=== PATIENT | male | born 1950 | race Caucasian/White ===

== ENCOUNTER 2020-05-21 08:04 | Outpatient (REF) | payer MEDICARE, SELFPAY ==
--- NOTE | 2020-05-21 08:09 | CT_ITS ---
EXAMINATION: CT CHEST WITHOUT CONTRAST CLINICAL INFORMATION: Right middle lobe lung cancer COMPARISON: Previous chest CT scans most recent March 2019 TECHNIQUE: Multidetector volumetric CT imaging of the chest was done. Axial MIP volume rendering provided. Sagittal and coronal reformatted images were obtained. This CT examination was performed using dose optimization techniques as appropriate, variously including the following: *Automated exposure control *Adjustment of mA and/or kV according to patient size (this includes techniques or standardized protocols for targeted exams where dose is matched to indication/reason for exam; i.e. extremities or head) *Use of iterative reconstruction technique DLP: 176 mGy-cm FINDINGS: LUNGS: There is evidence of emphysema. There are stable postsurgical changes following right middle lobe lobectomy. There are calcified and noncalcified pulmonary nodules that are stable. Largest pulmonary nodule is a peripheral or subpleural 9 mm, partially calcified left upper lobe nodule axial image 265 series 7. There is mild focal bronchiectasis seen in the right lower lobe axial image 373 series 7 that is stable from recent exams. There are increased peripheral interstitial markings in the anterior right upper lobe that are unchanged. No endobronchial or endotracheal lesion is seen. MEDIASTINUM: The visualized thyroid gland is unremarkable. There are small mediastinal lymph nodes that are stable. No enlarged lymph nodes are seen. There are postsurgical changes seen in the right pulmonary hilum. The heart does not appear enlarged. There is moderate coronary artery calcification. There is no pericardial effusion. The thoracic aorta is upper normal in size. PLEURA: There is no pleural effusion. No pleural mass or thickening. AXILLA: No lymphadenopathy. UPPER ABDOMEN: The right kidney is not visualized and may been removed. There is fatty infiltration of the pancreas. OSSEOUS STRUCTURES: There are degenerative changes of the spine. There are old left-sided rib fractures. CT/CT chest wo con IMPRESSION: Emphysema. Stable postsurgical changes following right middle lobe lobectomy. Stable pulmonary nodules. Moderate coronary artery calcification.
== END 2020-05-21 08:05 | disposition home or self-care (01) ==
LOC: HO.CT 08:04
PROVIDERS: PCP Student in an Organized Health Care Education/Training Program; Visit Provider Surgery
DX: C34.2 Malignant neoplasm of middle lobe, bronchus or lung (principal)
CPT/HCPCS: 71250

== ENCOUNTER → 2020-06-06 10:05 | Outpatient (BNVA) | payer MEDICARE, SELFPAY | PROVIDERS: PCP Student in an Organized Health Care Education/Training Program; Visit Provider Surgery | DX: Z85.118 Personal history of other malignant neoplasm of bronchus and lung (principal); Z87.891 Personal history of nicotine dependence; Z90.2 Acquired absence of lung [part of] | CPT/HCPCS: 99214 ==

== ENCOUNTER 2020-06-11 14:02 | Emergency (ER) | payer MEDICARE, SELFPAY ==
[2020-06-11 14:08] VITALS: BP 157/76; BP 159/83; PULSE 61; PULSE 67; RESP 16; TEMP 36.5; O2SAT 97; BMI 29.0
--- NOTE | 2020-06-11 14:14 | CT_ITS ---
EXAMINATION: CT HEAD WITHOUT CONTRAST CLINICAL INFORMATION: Status post fall, rule out intracranial abnormality. COMPARISON: None TECHNIQUE: Contiguous axial imaging was performed from the skull base to vertex without intravenous administration of contrast. Coronal and sagittal reformatted images were obtained. This CT examination was performed using dose optimization techniques as appropriate, variously including the following: *Automated exposure control *Adjustment of mA and/or kV according to patient size (this includes techniques or standardized protocols for targeted exams where dose is matched to indication/reason for exam; i.e. extremities or head) *Use of iterative reconstruction technique DLP: 776 mGy-cm FINDINGS: There is mild widening of the cortical sulci and associated ventriculomegaly. The lateral ventricles are symmetrical. The third and fourth ventricles are in their normal midline position. The basilar and prepontine cisterns are unremarkable. There is no acute intra or extracerebral abnormality. There is no mass effect or midline shift. Sections through the bony calvarium are unremarkable. The orbits are intact. The paranasal sinuses are clear. The mastoid air cells are clear. A probable subcutaneous hematoma is seen along the right high parietal region. CT/CT head/brain wo con IMPRESSION: 1. No acute intracranial pathology. 2. Probable subcutaneous hematoma along the right high parietal region is presumed secondary to the patient's trauma. No acute underlying abnormality. Correlate with physical exam.
--- NOTE | 2020-06-11 14:17 | ED.FALL ---
HPI - Fall General Chief Complaint: Fall Stated Complaint: FALL 15 FEET OFF LADDER,LAC TO HEAD Time Seen by Provider: 06/11/20 14:14 History of Present Illness HPI Narrative: Patient complains of laceration to the head after a fall 10 ft from a ladder he fell down and then the ladder fell and hit him in the head, he denies any headache any confusion any nausea vomiting any dizziness he said there was no loss of consciousness and he remembers everything, at this time he does not complain of any pain or dizziness, no vision pain no shortness of breath no chest pain no abdominal pain no extremity pain Related Data Home Medications Medication Instructions Recorded Confirmed albuterol sulfate 90 mcg/actuation 2 puff INHALATION Q6H PRN 04/26/20 06/06/20 aerosol inhaler amlodipine 2.5 mg tablet 2.5 mg PO DAILY 04/26/20 06/06/20 atenolol 50 mg tablet 50 mg PO DAILY 04/26/20 06/06/20 colchicine 0.6 mg capsule 0.6 mg PO DAILY 04/26/20 06/06/20 ibuprofen 800 mg tablet 800 mg PO TID 04/26/20 06/06/20 losartan 25 mg tablet 25 mg PO DAILY 04/26/20 06/06/20 nortriptyline 10 mg capsule 10 mg PO BEDTIME 04/26/20 06/06/20 Allergies Allergy/AdvReac Type Severity Reaction Status Date / Time No Known Allergies Allergy Verified 04/26/20 08:55 [No Known Allergies*] Review of Systems Review of Systems: ROS is positive for laceration to the scalp There is no headache no nausea no vomiting no dizziness no confusion no retrograde amnesia the patient has no neck pain no numbness no tingling no paresthesias no chest pain no abdominal pain no pain to either legs or arms Yes all other systems are reviewed and are negative ON LICENSE OF [facility] Past Medical History Attestation statement: The following information was validated with the patient. ON LICENSE OF [facility] Narrative: No alcohol or drug use, he has hypertension, he does not smoke cigarettes Source: nursing notes reviewed Surgical History History of nephrectomy, right Status post lobectomy of lung Family History Family History Father CVD (cardiovascular disease) Diabetes HTN (hypertension) Mother Lung cancer Social History Social History Alcohol intake: current Alcohol intake frequency: a few times a week Smoking Status: Current some day smoker Use of substances other than those prescribed or required for medical reasons: No Advance Directives: Yes Advance Directives Information Provided: Yes Advance Directives on File: No Physical Exam Vital Signs: Vital Signs: Last Vital Signs Temp 97.7 F 06/11/20 14:08 Pulse 61 06/11/20 14:08 Resp 16 06/11/20 14:08 BP 157/76 H 06/11/20 14:08 Pulse Ox 97 06/11/20 14:08 Body Mass Index 29.0 Patient is A&O x3 comfortable no acute distress moving all extremities chatting comfortably with staff The head on the scalp there is a 4 cm laceration subcutaneous, there is no defect to the bone there is no raccoon eyes there is no hemotympanum there is no Nguyen sign, there is no tenderness 20 bones of the face Neck is supple with no tenderness at all The chest is clear to auscultation bilaterally with no rib tenderness no pain on deep breathing The abdomen is soft nontender Extremities is full range of motion x4 without tenderness swelling or deformity and he ambulates easily Neuro there is no focal deficit there is no motor or sensory deficit, cranial nerves 2-12 intact as tested gait is normal and balance is normal as speech Course Course Course Narrative: CT of the head was negative and patient remains asymptomatic comfortable and cooperative throughout visit Procedure note the 4 cm subcutaneous scalp laceration is anesthetized with 8 cc of 1% lidocaine without epi It is copiously irrigated with normal saline It is closed with mesfin, bleeding controlled MDM - Fall Imaging Data CT scan - head: Radiologist's impression: FINDINGS: There is mild widening of the cortical sulci and associated ventriculomegaly. The lateral ventricles are symmetrical. The third and fourth ventricles are in their normal midline position. The basilar and prepontine cisterns are unremarkable. There is no acute intra or extracerebral abnormality. There is no mass effect or midline shift. Sections through the bony calvarium are unremarkable. The orbits are intact. The paranasal sinuses are clear. The mastoid air cells are clear. A probable subcutaneous hematoma is seen along the right high parietal region. CT/CT head/brain wo con IMPRESSION: 1. No acute intracranial pathology. 2. Probable subcutaneous hematoma along the right high parietal region is presumed secondary to the patient's trauma. No acute underlying abnormality. Correlate with physical exam. Discharge Plan Discharge Clinical Impression: Laceration of occipital region of scalp Qualifiers: Encounter type: initial encounter Qualified Code(s): S01.01XA - Laceration without foreign body of scalp, initial encounter Patient Disposition: Home, Self-Care Additional Instructions: CT of her head was normal with no evidence of fracture or bleeding in the brain The laceration on her head was stapled The mesfin should come out in 7-10 days Return any time for worsening headache, dizziness confusion vomiting, any worse condition or any concerns You got a tetanus shot Prescriptions: No Action colchicine 0.6 mg capsule 0.6 mg PO DAILY RF: 0 atenolol 50 mg tablet 50 mg PO DAILY RF: 0 amlodipine 2.5 mg tablet 2.5 mg PO DAILY RF: 0 ibuprofen 800 mg tablet 800 mg PO TID RF: 0 losartan 25 mg tablet 25 mg PO DAILY RF: 0 nortriptyline 10 mg capsule 10 mg PO BEDTIME RF: 0 albuterol sulfate [ProAir HFA] 90 mcg/actuation HFA aerosol inhaler 2 puff inhalation Q6H PRNRF: 0 Interventions: ED Discharge Assessment Last Done: 06/11/20 16:06 Discharge Date/Time: 06/11/20 16:06
[2020-06-11] MEDS: Lidocaine HCl 1 % MPF 5 ML VIAL SUBCUT ×2 (14:43)
== END 2020-06-11 16:06 | disposition home or self-care (01) ==
PROVIDERS: Emergency Provider Emergency Medicine; PCP Student in an Organized Health Care Education/Training Program
DX: S01.01XA Laceration without foreign body of scalp, initial encounter (principal); G44.309 Post-traumatic headache, unspecified, not intractable; I10 Essential (primary) hypertension; W11.XXXA Fall on and from ladder, initial encounter; Y93.9 Activity, unspecified; Y92.9 Unspecified place or not applicable; Y99.9 Unspecified external cause status; Z79.899 Other long term (current) drug therapy; F17.200 Nicotine dependence, unspecified, uncomplicated; Z71.6 Tobacco abuse counseling; Z23 Encounter for immunization
CPT/HCPCS: 70450; 90471; 90715; 99284

== ENCOUNTER 2020-06-23 09:58 | Emergency (ER) | payer MEDICARE, SELFPAY ==
[2020-06-23 10:14] VITALS: BP 145/85; PULSE 57; RESP 14; TEMP 36.2; O2SAT 97; BMI 28.1
--- NOTE | 2020-06-23 10:32 | ED.WOUNDLAC ---
HPI - Wound/Laceration General Chief Complaint: Wound/Laceration Stated Complaint: SUTURE REMOVAL Time Seen by Provider: 06/23/20 10:32 Source: patient Mode of arrival: ambulatory Limitations: no limitations History of Present Illness HPI narrative: Presenting ambulatory requesting staple removal scalp which he had placed here on 06/11/2020 after a accident at his house where he fell and ladder hit him on his head causing laceration. He underwent imaging and scalp laceration repair with 12 mesfin. States he has no complaints he feels well no headache, concussion symptoms or any signs of infection. States he is here as instructed to get the mesfin removed. Onset (ago): day(s) Location: scalp Place: home Patient tetanus UTD: Yes Associated symptoms: none Related Data Home Medications Medication Instructions Recorded Confirmed albuterol sulfate 90 mcg/actuation 2 puff INHALATION Q6H PRN 04/26/20 06/06/20 aerosol inhaler amlodipine 2.5 mg tablet 2.5 mg PO DAILY 04/26/20 06/06/20 atenolol 50 mg tablet 50 mg PO DAILY 04/26/20 06/06/20 colchicine 0.6 mg capsule 0.6 mg PO DAILY 04/26/20 06/06/20 ibuprofen 800 mg tablet 800 mg PO TID 04/26/20 06/06/20 losartan 25 mg tablet 25 mg PO DAILY 04/26/20 06/06/20 nortriptyline 10 mg capsule 10 mg PO BEDTIME 04/26/20 06/06/20 Allergies Allergy/AdvReac Type Severity Reaction Status Date / Time No Known Allergies Allergy Verified 04/26/20 08:55 [No Known Allergies*] Review of Systems Review of Systems: Constitutional: No Weight loss, No Fever, No Chills, No Night Sweats, No Fatigue, No Malaise ENT/Mouth: No Hearing loss, No Ear Pain, No Nasal Congestion, No Sinus Pain, No Hoarseness, No sore throat, No Rhinorrhea, No Swallowing Difficulty Eyes: No Eye Pain, No Swelling, No Redness, No Foreign Body, No Discharge, No Vision Changes Cardiovascular: No Chest Pain, No SOB, No Dyspnea on Exertion, No Orthopnea, No Edema, No Palpitations Respiratory: No Cough, No Sputum, No Wheezing, No Smoke Exposure, No Dyspnea Musculoskeletal: No joint pain, No Myalgias, No Joint Swelling Skin: No Skin Lesions, No rash Neuro: No Weakness, No Numbness, No Paresthesias, No Loss of Consciousness, No Dizziness, No Headache Heme/Lymph: No Bruising, No Bleeding,No Lymphadenopathy Endocrine: No Polyuria, No Polydipsia, No Temperature Intolerance Yes all other systems are reviewed and are negative [facility] Past Medical History Surgical History History of nephrectomy, right Status post lobectomy of lung Family History Family History Father CVD (cardiovascular disease) Diabetes HTN (hypertension) Mother Lung cancer Social History Social History Alcohol intake: current Alcohol intake frequency: a few times a week Smoking Status: Current some day smoker Advance Directives: No Advance Directives Information Provided: No Physical Exam Vital Signs: Vital Signs: Last Vital Signs Temp 97.2 F 06/23/20 10:14 Pulse 57 06/23/20 10:14 Resp 14 06/23/20 10:14 BP 145/85 H 06/23/20 10:14 Pulse Ox 97 06/23/20 10:14 Body Mass Index 28.1 Reviewed Const: General: cooperative and healthy appearing; No acute distress or intoxicated appearing Nutritional Appearance: average body habitus Orientation/consciousness: patient oriented x3 HENMT: Other: Temporal scalp there are 12 mesfin and placed slightly scabbed but no erythema, induration or swelling. No tender palpation. Head: Yes normal to inspection Ears: hearing grossly normal bilaterally Eyes: General: appearance normal, both eyes and all related structures Visual Gr: normal visual gr by confrontation Neck: Neck: Yes normal visual inspection and No tender Thyroid: Thyroid normal Chest: Chest palpation & inspection: normal inspection of the chest Resp: Effort & Inspection: normal respiratory effort Cardio: Jugular venous distension: no JVD : General: Yes no CVA tenderness Back/Spine/Pelvis: Back: no CVA tenderness Skin: General skin exam: no rashes or lesions noted Neuro: General: patient oriented x3 Extrem: General: Yes normal to inspection Procedures Procedure Narrative Procedure Narrative: Site clean with alcohol prep and mesfin removed with ease using staple removal tool. Site appears well healed and tissue connected. There is no open wound. Discharge Plan Discharge Clinical Impression: Encounter for removal of mesfin Patient Disposition: Home, Self-Care Instructions: Staple Care (ED) Additional Instructions: You had 12 mesfin removed from the scalp Site appears to be healing well No sign infection Continue with home care as instructed May shower with soap and water however do not submerge the head under water for at least another 1 week Return if any concerns or worse symptoms Thank you Prescriptions: No Action colchicine 0.6 mg capsule 0.6 mg PO DAILY RF: 0 atenolol 50 mg tablet 50 mg PO DAILY RF: 0 amlodipine 2.5 mg tablet 2.5 mg PO DAILY RF: 0 ibuprofen 800 mg tablet 800 mg PO TID RF: 0 losartan 25 mg tablet 25 mg PO DAILY RF: 0 nortriptyline 10 mg capsule 10 mg PO BEDTIME RF: 0 albuterol sulfate [ProAir HFA] 90 mcg/actuation HFA aerosol inhaler 2 puff inhalation Q6H PRNRF: 0 Referrals: Farida Tam MD [Primary Care Provider] - 1 week (As needed )
== END 2020-06-23 10:40 | disposition home or self-care (01) ==
PROVIDERS: Emergency Provider Internal Medicine; PCP Student in an Organized Health Care Education/Training Program
DX: Z48.02 Encounter for removal of sutures (principal); I10 Essential (primary) hypertension; F17.200 Nicotine dependence, unspecified, uncomplicated; Z71.6 Tobacco abuse counseling; Z79.899 Other long term (current) drug therapy
CPT/HCPCS: 99283

== ENCOUNTER 2020-09-15 10:11 | Outpatient (REF) | payer MEDICARE, SELFPAY ==
--- NOTE | ~2020-09-15 | MR_ITS ---
EXAMINATION: MR LUMBAR SPINE WITHOUT CONTRAST CLINICAL INFORMATION: Right hip pain. Leg pain. COMPARISON: MRI dated 04/24/2018 TECHNIQUE: MRI of the lumbar spine was obtained using routine sequences without contrast. FINDINGS: VERTEBRAL BODIES AND PARASPINAL STRUCTURES: The marrow signal is mildly heterogeneous with regions of fatty change. There are no compression fractures or new subluxations. The paraspinal soft tissues are normal. The right kidney is absent. CONUS MEDULLARIS AND CAUDA EQUINA: Normal, terminating at the level of L1. No lower cord signal abnormality is seen. The cauda equina nerve roots are normal. SPINAL LEVELS: L1-L2: Minimal retrosubluxation. Mild endplate spurring anteriorly. No central canal stenosis or foraminal narrowing. L2-L3: No significant disc pathology, central canal stenosis, or foraminal narrowing. L3-L4: Very mild disc bulge and mild facet arthropathy. No central canal stenosis. Mild foraminal narrowing. L4-L5: Mild posterior disc bulge and facet arthropathy without central canal stenosis. Moderate bilateral foraminal narrowing, worse on the left side, as on prior imaging. Small right lateral recess disc extrusion and underlying annular tear results in mild mass effect upon the right L5 nerve root, new compared to the previous study. L5-S1: Very mild disc bulge and hypertrophic facet arthropathy without central canal stenosis. [id number] foraminal encroachment, more so on the right side. MR/MR lumbar spine wo con IMPRESSION: New small right lateral recess disc extrusion at the L4-L5 level with mild mass effect upon the right L5 nerve root. Stable mild disc bulge and facet arthropathy with moderate foraminal encroachment. [id number] foraminal narrowing at the L5-S1 level, more so on the right side, remains stable.
== END 2020-09-15 10:12 | disposition home or self-care (01) ==
LOC: HO.MRI 10:11
PROVIDERS: Visit Provider Pediatrics
DX: M47.27 Other spondylosis with radiculopathy, lumbosacral region (principal); G57.91 Unspecified mononeuropathy of right lower limb
CPT/HCPCS: 72148

== ENCOUNTER 2020-11-17 10:33 | Outpatient (REF) | payer MEDICARE, SELFPAY ==
[2020-11-17 12:05] LABS: Alanine Aminotransferase 16 U/L (0-40); Albumin Level 3.8 g/dL (3.5-5.0); Alkaline Phosphatase 87 U/L (39-117); Anion Gap 10 (12-20); Aspartate Amino Transferase 16 U/L (5-37); Bilirubin Total 0.7 mg/dL (0.0-1.0); Blood Urea Nitrogen 26 mg/dL (9-16); Calcium 8.8 mg/dL (8.4-10.2); Carbon Dioxide 27 mmol/L (22-29); Chloride 107 mmol/L (96-108); Estimated Glomerular Filt Rate 38; Glucose Fasting 81 mg/dL (60-99); Potassium 4.6 mmol/L (3.3-5.1); Sodium 139 mmol/L (135-145)
== END 2020-11-17 10:34 | disposition home or self-care (01) ==
LOC: HO.HMGCLDS 10:33
PROVIDERS: PCP Student in an Organized Health Care Education/Training Program; Visit Provider Internal Medicine Hypertension Specialist
DX: E87.5 Hyperkalemia (principal)
CPT/HCPCS: 36415; 80053

== ENCOUNTER 2020-12-02 08:52 | Outpatient (REF) | payer MEDICARE, SELFPAY ==
--- NOTE | ~2020-12-02 | XR_ITS ---
EXAMINATION: XR HIP, RIGHT CLINICAL INFORMATION: Pain right hip COMPARISON: None TECHNIQUE: Two views of the right hip. FINDINGS: There is mild loss of joint space with no bony erosive changes or periarticular spurring. No visible acute fracture, dislocation or subluxation seen. Soft tissues are normal. XR/XR hip RT min 2V IMPRESSION: Minimal early degenerative arthritic changes right hip joint.
== END 2020-12-02 08:53 | disposition home or self-care (01) ==
LOC: HO.XRAY 08:52
PROVIDERS: PCP Student in an Organized Health Care Education/Training Program; Visit Provider Internal Medicine Addiction Medicine
DX: M25.551 Pain in right hip (principal)
CPT/HCPCS: 73502

== ENCOUNTER 2021-06-08 09:59 | Outpatient (REF) | payer MEDICARE, SELFPAY ==
--- NOTE | ~2021-06-08 | CT_ITS ---
EXAMINATION: CT CHEST WITHOUT CONTRAST CLINICAL INFORMATION: Right middle lobe neoplasm. COMPARISON: 05/21/2020 and 04/09/2016. TECHNIQUE: Multidetector volumetric CT imaging of the chest was done. Axial MIP volume rendering provided. Sagittal and coronal reformatted images were obtained. This CT examination was performed using dose optimization techniques as appropriate, variously including the following: *Automated exposure control *Adjustment of mA and/or kV according to patient size (this includes techniques or standardized protocols for targeted exams where dose is matched to indication/reason for exam; i.e. extremities or head) *Use of iterative reconstruction technique DLP: 179 mGy-cm FINDINGS: LUNGS: Patient status post stable changes of right middle lobectomy. There are moderate changes of centrilobular emphysema seen bilaterally within the upper lobes. There are multiple bilateral calcified and noncalcified lymph nodes the majority of which are sub-4 mm in size. These are stable. The largest nodule seen to be in a subpleural location within the left upper lobe measuring 8 mm in diameter. This is seen on image 287 of 710 in series #5. There is again noted to be a region of atelectasis or scarring seen within the lingula. No acute parenchymal disease is appreciated. Bronchial wall thickening is present bilaterally. There is a stable region of what appears to be focal bronchiectasis or cyst formation within the right lower lobe on image 387 of 710. MEDIASTINUM: Heart normal size. Prominent coronary artery calcification is present. No pericardial effusion. No thoracic aortic aneurysm. There is nonocclusive calcified plaque seen in the aortic arch. There is a stable 1 cm precarinal lymph node. No internal mammary lymphadenopathy. Visualized thyroid gland unremarkable. PLEURA: There is no pleural effusion. No pleural mass or thickening. AXILLA: No lymphadenopathy. UPPER ABDOMEN: Unremarkable. There has been fatty involution of the pancreas. No adrenal gland mass. Accessory spleen. OSSEOUS STRUCTURES: Unremarkable. CT/CT chest wo con IMPRESSION: Stable appearance of the lung status post right middle lobectomy. Moderate changes of centrilobular emphysema. Old granulomatous disease. Stable 1 cm precarinal lymph node.
== END 2021-06-08 10:00 | disposition home or self-care (01) ==
LOC: HO.CT 09:59
PROVIDERS: PCP Student in an Organized Health Care Education/Training Program; Visit Provider Surgery
DX: C34.2 Malignant neoplasm of middle lobe, bronchus or lung (principal)
CPT/HCPCS: 71250

== ENCOUNTER → 2021-09-11 09:21 | Outpatient (BNVA) | payer MEDICARE, SELFPAY | PROVIDERS: PCP Student in an Organized Health Care Education/Training Program; Visit Provider Surgery | DX: Z85.118 Personal history of other malignant neoplasm of bronchus and lung (principal); Z79.899 Other long term (current) drug therapy; Z87.891 Personal history of nicotine dependence | CPT/HCPCS: 99212 ==

== ENCOUNTER 2022-01-01 09:05 | Outpatient (REF) | payer MEDICARE, SELFPAY ==
[2022-01-01 12:13] LABS: Alanine Aminotransferase 12 U/L (0-40); Alkaline Phosphatase 78 U/L (39-117); Anion Gap 13 (12-20); Aspartate Amino Transferase 16 U/L (5-37); Bilirubin Direct 0.3 mg/dL (0.0-0.5); Bilirubin Total 0.7 mg/dL (0.0-1.0); Blood Urea Nitrogen 23 mg/dL (9-16); Carbon Dioxide 28 mmol/L (22-29); Chloride 106 mmol/L (96-108); Estimated Glomerular Filt Rate 36; Glucose Random 105 mg/dL (60-115); Potassium 5.4 mmol/L (3.3-5.1); Sodium 142 mmol/L (135-145); Total Protein 7.2 g/dL (6.5-8.0)
[2022-01-01 12:34] LABS: Vitamin D 25-OH Total 34.6 ng/mL (>30)
== END 2022-01-01 09:06 | disposition home or self-care (01) ==
LOC: HO.HMGCLDS 09:05
PROVIDERS: PCP Student in an Organized Health Care Education/Training Program; Visit Provider Student in an Organized Health Care Education/Training Program
DX: I10 Essential (primary) hypertension (principal)
CPT/HCPCS: 36415; 80048; 80076; 82306

== ENCOUNTER 2022-06-04 07:46 | Day surgery (SDC) | payer MEDICARE, SELFPAY ==
--- NOTE | 2022-06-03 09:21 | HO.ANESPROP2 ---
Documented by User: Jazzmine Rocha NP 06/03/22 09:27 HPI - Anesthesia Eval Consult details Narrative: 71yo M for Colonoscopy Hx lung CA s/p RML lobectomy PMFSH Active Problems Active Problems: All Active Problems (Updated 09/01/21 @ 14:36 by Cary Kaufman PA-C) Primary cancer of right middle lobe of lung (Acute ~2015) Personal history of nicotine dependence (Acute) Past Medical History Medical History History of pulmonary embolism (~2006) Hypertension Personal history of nicotine dependence Primary cancer of right middle lobe of lung (~2015) Family History Family History Father CVD (cardiovascular disease) Diabetes HTN (hypertension) Mother Lung cancer Surgical History Surgical History History of colonoscopy (~2017) History of esophagogastroduodenoscopy (EGD) (~2017) History of lobectomy of lung (~2015) History of nephrectomy, right (~2006) History of right inguinal hernia repair (~2016) S/P insertion of IVC (inferior vena caval) filter (~2006) Social History Social History Alcohol intake: current Alcohol intake frequency: a few times a week Patient Tobacco Use Status: Current everyday Tobacco user Use of substances other than those prescribed or required for medical reasons: Yes Are you DNR?: No Advance Directives: No Advance Directives Information Provided: Yes Meds Allergies Allergy/AdvReac Type Severity Reaction Status Date / Time No Known Allergies Allergy Verified 09/11/21 09:38 [No Known Allergies*] Home Medications Medication Instructions Recorded Confirmed Last Taken Type albuterol sulfate 90 mcg/actuation 2 puff inhalation Q6H PRN 04/26/20 09/11/21 Unknown History aerosol inhaler (ProAir HFA) amlodipine 2.5 mg tablet 2.5 mg PO DAILY 04/26/20 09/11/21 Unknown History atenolol 50 mg tablet 50 mg PO DAILY 04/26/20 09/11/21 Unknown History colchicine 0.6 mg capsule 0.6 mg PO DAILY 04/26/20 09/11/21 Unknown History losartan 25 mg tablet 25 mg PO DAILY 04/26/20 09/11/21 Unknown History nortriptyline 10 mg capsule 10 mg PO BEDTIME 04/26/20 09/11/21 Unknown History ibuprofen 800 mg tablet 800 mg PO TID PRN 09/11/21 09/11/21 Unknown History tramadol 50 mg tablet 50 mg PO BID PRN 09/11/21 09/11/21 Unknown History Exam Exam Date and Time: June 03, 2022920 Assessment and Plan Assessment Anesthesia Assessment: Chart Reviewed Documented by User: Phil Townsend MD 06/04/22 08:57 [facility] Past Medical History Medical History History of pulmonary embolism (~2006) Hypertension Personal history of nicotine dependence Primary cancer of right middle lobe of lung (~2015) Family History Family History Father CVD (cardiovascular disease) Diabetes HTN (hypertension) Mother Lung cancer Family history of problems with anesthesia: No Surgical History Surgical History History of colonoscopy (~2017) History of esophagogastroduodenoscopy (EGD) (~2017) History of lobectomy of lung (~2015) History of nephrectomy, right (~2006) History of right inguinal hernia repair (~2016) S/P insertion of IVC (inferior vena caval) filter (~2006) History of Problems with Anesthesia: No Social History Social History Alcohol intake: current Alcohol intake frequency: a few times a week Patient Tobacco Use Status: Current everyday Tobacco user Use of substances other than those prescribed or required for medical reasons: Yes Are you DNR?: No Advance Directives: No Advance Directives Information Provided: Yes Meds Allergies Allergy/AdvReac Type Severity Reaction Status Date / Time No Known Allergies Allergy Verified 09/11/21 09:38 [No Known Allergies*] Home Medications Medication Instructions Recorded Confirmed Last Taken Type albuterol sulfate 90 mcg/actuation 2 puff inhalation Q6H PRN 04/26/20 09/11/21 Unknown History aerosol inhaler (ProAir HFA) amlodipine 2.5 mg tablet 2.5 mg PO DAILY 04/26/20 09/11/21 Unknown History atenolol 50 mg tablet 50 mg PO DAILY 04/26/20 09/11/21 Unknown History colchicine 0.6 mg capsule 0.6 mg PO DAILY 04/26/20 09/11/21 Unknown History losartan 25 mg tablet 25 mg PO DAILY 04/26/20 09/11/21 Unknown History nortriptyline 10 mg capsule 10 mg PO BEDTIME 04/26/20 09/11/21 Unknown History ibuprofen 800 mg tablet 800 mg PO TID PRN 09/11/21 09/11/21 Unknown History tramadol 50 mg tablet 50 mg PO BID PRN 09/11/21 09/11/21 Unknown History Exam Airway Mallampati Class: II TM Dist: >3cm Neck ROM: Full Loose/Missing/Broken Teeth: Yes (many permanant crowns) Heart: [id number] Lungs: cta b/l Assessment and Plan Assessment Anesthesia Assessment: Anesthesia Plan Discussed Final Anesthetic Review Family History of Problems with Anesthesia: No History of Problems with Anesthesia: No NPO: Yes ASA Class: III Final Preanesthetic Review: No Changes in Pt Med Stat, Meds/Allgs Chart Reviewed, Consent Obtained/Reviewed and Anes Risks/Benef Reviewed Patient Risk: Intermediate Procedure Risk: Intermediate Assessment/Block/Sedation in SS: Assess/Block/Sedation-SS Anesthetic Plan Anesthetic Plan: MAC: and Agree w/ Assess. and Plan Disposition: Standard PACU
[2022-06-04 08:11] VITALS: BMI 28.2
[2022-06-04 08:16] LABS: Hematocrit 35.3 % (42.0-52.0); Hemoglobin 11.7 g/dl (14.0-18.0); Mean Corpuscular HGB Conc 33.1 g/dl (31.0-36.0); Mean Corpuscular Hemoglobin 33.9 pg (27.0-33.0); Mean Corpuscular Volume 102.3 fL (80.0-98.0); Mean Platelet Volume 11.3 fL (9.4-12.4); Platelet Count 147 X10*3/uL (160-400); Red Blood Count 3.45 X10*6/uL (4.60-5.80); Red Cell Distribution Width 12.8 % (11.0-16.0); White Blood Count 4.8 X10*3/uL (4.8-10.8)
[2022-06-04 08:18] VITALS: BP 138/69; PULSE 57; RESP 16; TEMP 36.4; O2SAT 99
[2022-06-04 08:31] LABS: Anion Gap 12 (12-20); Blood Urea Nitrogen 24 mg/dL (9-16); Carbon Dioxide 26 mmol/L (22-29); Chloride 108 mmol/L (96-108); Creatinine Clr Calc Pharmacy 40.1; Estimated Glomerular Filt Rate 40; Glucose Fasting 96 mg/dL (60-99); Potassium 4.7 mmol/L (3.3-5.1); Sodium 141 mmol/L (135-145)
[2022-06-04] MEDS: Lactated Ringers 1,000 ML 100 ML IVCONT (08:38)
--- NOTE | 2022-06-04 09:26 | MHC.SHP ---
Pre-Procedural Eval Section A Date of Service: 06/04/22 The patient is an INPATIENT: No Changes since office visit: No Cold of Flu in the past 2 weeks, No New Medical Problems, No Changes in Medication and No Patient answered all questions The History & Physical has been completed within 30 days and I have reviewed it.: Yes Section B Chief Complaint: screening Allergies: Allergies Allergy/AdvReac Type Severity Reaction Status Date / Time No Known Allergies Allergy Verified 09/11/21 09:38 [No Known Allergies*] Plan I have reviewed the history and physical and performed a pertinent physical examination on my patient. No changes have occurred unless specified.
--- NOTE | 2022-06-04 10:03 | PM.OP ---
Brief Operative Note Date of Service: 06/04/22 Pre-op diagnosis: screening Post-op diagnosis: same Surgeon: Joey Young Anesthesia: MAC Was an Gauge And Instrument Inspector used for this Procedure?: No Estimated blood loss (mL): 0 Pathology: none sent Condition: stable Disposition: PACU
[2022-06-04 10:06] VITALS: BP 123/58; PULSE 59; RESP 16; TEMP 36.6; O2SAT 98
[2022-06-04 10:21] VITALS: BP 122/73; PULSE 60; RESP 18; TEMP 36.1; O2SAT 97
--- NOTE | 2022-06-04 11:54 | OP_ITS ---
SURGEON: Joey Young MD INDICATIONS: Colon cancer screening and prior history of adenomatous colon polyps. PREOPERATIVE DIAGNOSIS: POSTOPERATIVE DIAGNOSIS: PROCEDURE PERFORMED: Colonoscopy to the terminal ileum. ESTIMATED BLOOD LOSS: COMPLICATIONS: ANESTHESIA: Monitored anesthesia care. ASSISTANTS: SPECIMENS: DESCRIPTION OF PROCEDURE: Date of service 06/04/22. History and physical performed. The risks and benefits of the procedure were explained to the patient. The procedure was performed on 06/04/2022. The patient was placed in the left lateral decubitus position after informed consent was obtained. A digital rectal exam was performed and was found to be normal. The Olympus pediatric video colonoscope was introduced into the rectum and advanced to the cecum. The cecum was identified by transillumination, palpation, and identification of ileocecal valve. Examination was performed. The scope was removed. He tolerated the procedure well and was returned to the recovery area in stable condition. FINDINGS: The terminal ileum was examined and appeared normal. The visualized colonic mucosa was normal. There was moderate amount of liquid stool and undigested food material in the descending colon and sigmoid, which limited the examination for detection of small polyps this was washed and suctioned as best possible. No polyps were identified. Retroflexed examination showed large internal hemorrhoids. IMPRESSION: Normal colonoscopy. RECOMMENDATION: 1. Follow up as needed. 2. Repeat colonoscopy is recommended in 10 years for average risk individuals. MD MANDIE Bond/JORDAN / [id number] MTDD
== END 2022-06-04 10:56 | disposition home or self-care (01) ==
PROVIDERS: Nurse Practitioner; PCP Student in an Organized Health Care Education/Training Program; Visit Provider Internal Medicine Gastroenterology
PROC: 0DJD8ZZ Inspection of Lower Intestinal Tract, Via Natural or Artificial Opening Endoscopic (ICD-10-PCS; CPT 45378; principal; 2022-06-04 09:10)
DX: Z12.11 Encounter for screening for malignant neoplasm of colon (principal); Z86.010 Personal history of colon polyps; K64.8 Other hemorrhoids; I12.9 Hypertensive chronic kidney disease with stage 1 through stage 4 chronic kidney disease, or unspecified chronic kidney disease; N18.9 Chronic kidney disease, unspecified; M10.9 Gout, unspecified; Z86.711 Personal history of pulmonary embolism; Z85.118 Personal history of other malignant neoplasm of bronchus and lung; Z87.891 Personal history of nicotine dependence; Z79.899 Other long term (current) drug therapy
CPT/HCPCS: G0105; 36415; 80048; 85027

== ENCOUNTER 2022-06-30 09:51 | Outpatient (REF) | payer MEDICARE, SELFPAY ==
--- NOTE | ~2022-06-30 | CT_ITS ---
EXAMINATION: CT CHEST SCREENING CLINICAL INFORMATION: Quit smoking 15 years ago. Smoker for 30 years. COMPARISON: CT chest 06/08/2021 TECHNIQUE: Multidetector volumetric CT imaging of the chest is performed without contrast using low dose technique. Additional 2D coronal and sagittal reformatted images and axial 3D maximum intensity projection (MIP) images are generated on the CT workstation. This CT examination was performed using dose optimization techniques as appropriate, variously including the following: *Automated exposure control *Adjustment of mA and/or kV according to patient size (this includes techniques or standardized protocols for targeted exams where dose is matched to indication/reason for exam; i.e. extremities or head) *Use of iterative reconstruction technique DLP: 53 mGy-cm FINDINGS: LUNGS: There is diffuse centrilobular emphysematous changes of both lungs without acute pneumonic process. Postsurgical changes are seen in the right middle lobe. There are small noncalcified and calcified lung nodules. The calcified nodules are in the range of 1 to 2 mm. The largest subpleural-based nodule in the lingula partially calcified measures 9 x 8 mm on axial image 32/4. Previously it measured 8 mm. There is chronic atelectasis or scarring in the lingula, similar to previous study. MEDIASTINUM: The thyroid lobes are symmetrical and normal. The central trachea and bronchi are widely patent. Heart size and the great vessels are normal caliber. There are coronary artery calcifications present. No pericardial effusion seen. 8 mm pretracheal lymph node likely benign. No additional lymph nodes seen. CORONARY ARTERY CALCIFICATION: Moderate coronary artery calcifications are present. PLEURA: There is no pleural effusion. No pleural mass or thickening. AXILLA: No abnormal size axillary lymph nodes seen. In the left axilla, there is a subcutaneous 8 mm soft tissue nodule likely sebaceous cyst. The chest wall is otherwise unremarkable. UPPER ABDOMEN: Visualized liver, gallbladder, spleen, pancreas and bilateral adrenal glands unremarkable. OSSEOUS STRUCTURES: No aggressive lytic or sclerotic process seen. CT/CT lung screening IMPRESSION: Diffuse emphysema with postsurgical changes right middle lobe. There are multiple calcified and noncalcified lung nodules. The largest nodule in the lingula is stable. ASSESSMENT: Lung-RADS category 2: Benign RECOMMENDATION: Low-dose annual CT chest.
== END 2022-06-30 09:52 | disposition home or self-care (01) ==
LOC: HO.CT 09:51
PROVIDERS: Visit Provider Surgery
DX: Z12.2 Encounter for screening for malignant neoplasm of respiratory organs (principal); Z87.891 Personal history of nicotine dependence
CPT/HCPCS: 71271

== ENCOUNTER 2023-01-21 10:14 | Outpatient (REF) | payer MEDICARE, SELFPAY ==
--- NOTE | ~2023-01-21 | XR_ITS ---
EXAMINATION: XR SHOULDER, LEFT CLINICAL INFORMATION: Pain COMPARISON: None available. TECHNIQUE: Frontal lateral and axillary view 3 views total. of the left shoulder. FINDINGS: The bones and soft tissues are normal. No fracture. Glenohumeral and acromioclavicular alignment is anatomic with normal joint space. No abnormal soft tissue calcifications. XR/XR shoulder LT min 2V IMPRESSION: No significant osseous changes to explain patient's pain symptoms, may consider correlation with MRI to assess for possible soft tissue derangement.
--- NOTE | ~2023-01-21 | XR_ITS ---
EXAMINATION: XR SHOULDER, RIGHT CLINICAL INFORMATION: Pain COMPARISON: None available. TECHNIQUE: 3 views frontal lateral and axillary view of the right shoulder. FINDINGS: Degenerative osteoarthritic changes of the right glenohumeral joints evident by narrowing of joint space, sclerotic changes of articular surface and developed osteophytes. Subtle cortical irregularity in the right clavicle might be an old fracture. Included adjacent ribs and lungs are normal. 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 * Subtle cortical irregularity in the right clavicle might be an old fracture.
== END 2023-01-21 10:15 | disposition home or self-care (01) ==
LOC: HO.HOSX 10:14
PROVIDERS: Visit Provider Physician Assistant
DX: M25.511 Pain in right shoulder (principal); M25.512 Pain in left shoulder
CPT/HCPCS: 73030; 99202

== ENCOUNTER 2023-02-09 09:46 | Outpatient (REF) | payer MEDICARE, SELFPAY ==
--- NOTE | ~2023-02-09 | FL_ITS ---
PROCEDURE: BILATERAL SHOULDER STEROID INJECTION UNDER FLUOROSCOPY CLINICAL INDICATION: Severe bilateral shoulder pain. Arthritis. COMPARISON: Bilateral shoulders 01/21/2023. TECHNIQUE: Following explaining bilateral shoulder steroid injection procedure, benefits and risk, a written consent was obtained. Patient was placed supine on fluoroscopy table and initially marker was placed along the right anterior shoulder under fluoroscopy. The marked site was cleaned and draped in the usual sterile manner. 1% lidocaine was injected at the puncture site. A 20-gauge spinal needle was inserted from the skin into the inferior glenohumeral joint space under fluoroscopy and 2 mL of nonionic contrast was injected. A single image was obtained. Subsequently 80 mg/1 mL of Depo-Medrol and 9 mL of 1% lidocaine was injected and needle withdrawn. Complete hemostasis achieved at puncture site. Sterile Band-Aid applied postprocedure. Patient was then turned craniocaudad on fluoroscopy table and the left shoulder was exposed under fluoroscopy. An optimal site was selected along the inferior glenohumeral joint space and marked on the skin. The marked site was cleaned and draped in the usual sterile manner. 1% lidocaine was administered at puncture site. A new 22-gauge needle was advanced from the skin into the inferior left shoulder joint space and 2 mL of nonionic contrast was injected. A single image was obtained. Subsequently 80 mg/1 mL of Depo-Medrol, 9 mL of 1% lidocaine was injected as 10 mL combination and needle withdrawn. Complete hemostasis achieved at puncture site. Sterile Band-Aid applied postprocedure. Patient tolerated procedure extremely well. FINDINGS: There is severe loss of bilateral glenohumeral joint space. There is contrast opacifying the joint space bilaterally. Successful bilateral shoulder joint steroid injection under fluoroscopy. FL/FL arthrogram shoulder LT IMPRESSION: Severe bilateral degenerative arthritic changes glenohumeral joint. Successful fluoroscopy-guided bilateral shoulder joint steroid injection performed. Fluoroscopy time: 1.7 minutes. Dose area product: 5.312 Gy-cm2. Images: 4.
--- NOTE | ~2023-02-09 | FL_ITS ---
PROCEDURE: BILATERAL SHOULDER STEROID INJECTION UNDER FLUOROSCOPY CLINICAL INDICATION: Severe bilateral shoulder pain. Arthritis. COMPARISON: Bilateral shoulders 01/21/2023. TECHNIQUE: Following explaining bilateral shoulder steroid injection procedure, benefits and risk, a written consent was obtained. Patient was placed supine on fluoroscopy table and initially marker was placed along the right anterior shoulder under fluoroscopy. The marked site was cleaned and draped in the usual sterile manner. 1% lidocaine was injected at the puncture site. A 20-gauge spinal needle was inserted from the skin into the inferior glenohumeral joint space under fluoroscopy and 2 mL of nonionic contrast was injected. A single image was obtained. Subsequently 80 mg/1 mL of Depo-Medrol and 9 mL of 1% lidocaine was injected and needle withdrawn. Complete hemostasis achieved at puncture site. Sterile Band-Aid applied postprocedure. Patient was then turned craniocaudad on fluoroscopy table and the left shoulder was exposed under fluoroscopy. An optimal site was selected along the inferior glenohumeral joint space and marked on the skin. The marked site was cleaned and draped in the usual sterile manner. 1% lidocaine was administered at puncture site. A new 22-gauge needle was advanced from the skin into the inferior left shoulder joint space and 2 mL of nonionic contrast was injected. A single image was obtained. Subsequently 80 mg/1 mL of Depo-Medrol, 9 mL of 1% lidocaine was injected as 10 mL combination and needle withdrawn. Complete hemostasis achieved at puncture site. Sterile Band-Aid applied postprocedure. Patient tolerated procedure extremely well. FINDINGS: There is severe loss of bilateral glenohumeral joint space. There is contrast opacifying the joint space bilaterally. Successful bilateral shoulder joint steroid injection under fluoroscopy. FL/FL arthrogram shoulder RT IMPRESSION: Severe bilateral degenerative arthritic changes glenohumeral joint. Successful fluoroscopy-guided bilateral shoulder joint steroid injection performed. Fluoroscopy time: 1.7 minutes. Dose area product: 5.312 Gy-cm2. Images: 4.
== END 2023-02-09 09:47 | disposition home or self-care (01) ==
LOC: HO.XRAY 09:46
PROVIDERS: PCP Student in an Organized Health Care Education/Training Program; Visit Provider Physician Assistant
DX: M19.012 Primary osteoarthritis, left shoulder (principal); M19.011 Primary osteoarthritis, right shoulder
CPT/HCPCS: 23350; 73040

== ENCOUNTER → 2023-02-09 09:57 | Outpatient (BNV) | payer MEDICARE, SELFPAY | PROVIDERS: PCP Student in an Organized Health Care Education/Training Program; Visit Provider Radiology Diagnostic Radiology | DX: M25.512 Pain in left shoulder (principal); M25.511 Pain in right shoulder | CPT/HCPCS: 73040 ==

== ENCOUNTER 2023-04-05 09:51 | Outpatient (REF) | payer MEDICARE, SELFPAY ==
[2023-04-05 14:56] LABS: Alanine Aminotransferase 22 U/L (0-40); Alkaline Phosphatase 64 U/L (39-117); Anion Gap 9 (12-20); Aspartate Amino Transferase 20 U/L (5-37); Bilirubin Direct 0.2 mg/dL (0.0-0.5); Bilirubin Total 0.4 mg/dL (0.0-1.0); Blood Urea Nitrogen 24 mg/dL (9-16); Calcium 9.3 mg/dL (8.4-10.2); Carbon Dioxide 30 mmol/L (22-29); Chloride 106 mmol/L (96-108); Cholesterol 213 mg/dL (<200); Estimated Glomerular Filt Rate 40; Glucose Fasting 89 mg/dL (60-99); HDL Cholesterol 77 mg/dL (>40); LDL Cholesterol Calculated 126 mg/dL (<100); Sodium 140 mmol/L (135-145); Total Protein 6.9 g/dL (6.5-8.0); Triglycerides 51 mg/dL (<150)
== END 2023-04-05 09:52 | disposition home or self-care (01) ==
LOC: HO.CHCLDS 09:51
PROVIDERS: Visit Provider Student in an Organized Health Care Education/Training Program
DX: I10 Essential (primary) hypertension (principal)
CPT/HCPCS: 36415; 80048; 80061; 80076

== ENCOUNTER 2023-11-11 11:33 | Outpatient (REF) | payer MEDICARE, SELFPAY ==
[2023-11-11 16:48] LABS: Anion Gap 10 (12-20); Blood Urea Nitrogen 30 mg/dL (9-16); Calcium 8.9 mg/dL (8.4-10.2); Carbon Dioxide 29 mmol/L (22-29); Chloride 106 mmol/L (96-108); Estimated Glomerular Filt Rate 32; Glucose Random 85 mg/dL (60-115); Potassium 4.9 mmol/L (3.3-5.1); Sodium 140 mmol/L (135-145)
== END 2023-11-11 11:34 | disposition home or self-care (01) ==
LOC: HO.CHCLDS 11:33
PROVIDERS: Visit Provider Student in an Organized Health Care Education/Training Program
DX: I10 Essential (primary) hypertension (principal)
CPT/HCPCS: 36415; 80048

== ENCOUNTER 2024-01-17 08:36 | Outpatient (REF) | payer MEDICARE, SELFPAY ==
[2024-01-17 11:58] LABS: Hemoglobin 11.2 g/dl (14.0-18.0); Mean Corpuscular HGB Conc 32.9 g/dl (31.0-36.0); Mean Corpuscular Hemoglobin 34.8 pg (27.0-33.0); Mean Corpuscular Volume 105.6 fL (80.0-98.0); Mean Platelet Volume 11.9 fL (9.4-12.4); Platelet Count 133 X10*3/uL (160-400); Red Blood Count 3.22 X10*6/uL (4.60-5.80); Red Cell Distribution Width 13.2 % (11.0-16.0); White Blood Count 4.4 X10*3/uL (4.8-10.8)
[2024-01-17 12:23] LABS: Anion Gap 13 (12-20); Blood Urea Nitrogen 35 mg/dL (9-16); Calcium 9.2 mg/dL (8.4-10.2); Carbon Dioxide 27 mmol/L (22-29); Chloride 107 mmol/L (96-108); Estimated Glomerular Filt Rate 30; Glucose Random 99 mg/dL (60-115); Iron 102 mcg/dL (45-160); Percent Iron Saturation 47 % (15-50); Potassium 5.4 mmol/L (3.3-5.1); Sodium 142 mmol/L (135-145); Total Iron Binding Capacity 218 mcg/dL (228-428); Unsaturated Iron Binding 116 ug/dL
[2024-01-17 12:29] LABS: Creatinine Urine 133.27 mg/dL; Protein/Creatinine Ratio, Ur 1.02 (<0.2); Total Protein Urine Random 136 mg/dL (<12)
[2024-01-17 12:31] LABS: Parathyroid Hormone Intact 164.3 pg/mL (8.7-77.1)
[2024-01-17 12:44] LABS: Ferritin 253 ng/mL (20-250); Vitamin D 25-OH Total 38.5 ng/mL (>30)
[2024-01-17 12:49] LABS: Microalbum/Creatinine Ratio Ur 715.8 ug/mg cr (<30)
== END 2024-01-17 08:37 | disposition home or self-care (01) ==
LOC: HO.HMGCLDS 08:36
PROVIDERS: PCP Student in an Organized Health Care Education/Training Program; Visit Provider Internal Medicine Nephrology
DX: N18.32 Chronic kidney disease, stage 3b (principal); I10 Essential (primary) hypertension
CPT/HCPCS: 36415; 80048; 82043; 82306; 82570; 82728; 83540; 83970; 84156; 85027

== ENCOUNTER 2024-01-25 09:51 | Outpatient (REF) | payer MEDICARE, SELFPAY ==
[2024-01-25 10:02] LABS: MANUAL DIFF FLAG NO
[2024-01-25 14:20] LABS: Basophils Percent Auto 0.9 % (0-2); Eosinophils Absolute Auto 0.2 X10*3/uL (0.0-0.4); Eosinophils Percent Auto 5.6 % (0-4); Hematocrit 33.3 % (42.0-52.0); Hemoglobin 11.4 g/dl (14.0-18.0); Imm Gran Abs Auto 0.05 X10*3/uL (0.00-0.03); Imm Gran Pct Auto 1.2 % (0.0-0.4); Lymphocytes Absolute Auto 1.4 X10*3/uL (1.2-4.9); Lymphocytes Percent Auto 32.1 % (20-40); Mean Corpuscular HGB Conc 34.2 g/dl (31.0-36.0); Mean Corpuscular Hemoglobin 35.1 pg (27.0-33.0); Mean Corpuscular Volume 102.5 fL (80.0-98.0); Mean Platelet Volume 11.6 fL (9.4-12.4); Monocytes Absolute Auto 0.5 X10*3/uL (0.1-1.2); Monocytes Percent Auto 11.4 % (2-11); Neutrophils Absolute Auto 2.1 x10*3/uL (2.0-8.3); Neutrophils Percent Auto 48.8 % (45-73); Platelet Count 130 X10*3/uL (160-400); Red Blood Count 3.25 X10*6/uL (4.60-5.80); Red Cell Distribution Width 12.9 % (11.0-16.0); White Blood Count 4.3 X10*3/uL (4.8-10.8)
[2024-01-25 14:37] LABS: Anion Gap 11 (12-20); Blood Urea Nitrogen 34 mg/dL (9-16); Calcium 10.2 mg/dL (8.4-10.2); Carbon Dioxide 29 mmol/L (22-29); Chloride 103 mmol/L (96-108); Estimated Glomerular Filt Rate 24; Iron 71 mcg/dL (45-160); Magnesium 1.8 mg/dL (1.6-2.6); Percent Iron Saturation 32 % (15-50); Sodium 138 mmol/L (135-145); Total Iron Binding Capacity 224 mcg/dL (228-428); Unsaturated Iron Binding 153 ug/dL
[2024-01-25 14:49] LABS: Uric Acid 9.7 mg/dL (3.4-7.0)
[2024-01-25 15:00] LABS: Ferritin 273 ng/mL (20-250); Vitamin D 25-OH Total 43.6 ng/mL (>30)
== END 2024-01-25 09:52 | disposition home or self-care (01) ==
LOC: HO.CHCLDS 09:51
PROVIDERS: Visit Provider Internal Medicine Nephrology
DX: N18.32 Chronic kidney disease, stage 3b (principal); E87.5 Hyperkalemia; N25.81 Secondary hyperparathyroidism of renal origin
CPT/HCPCS: 36415; 80051; 82306; 82310; 82565; 82728; 83540; 83735; 83970; 84520; 84550; 85025

== ENCOUNTER 2024-02-22 08:35 | Outpatient (REF) | payer MEDICARE, SELFPAY ==
--- NOTE | ~2024-02-22 | CT_ITS ---
EXAMINATION: CT SOFT TISSUE NECK WITHOUT CONTRAST CLINICAL INFORMATION: Chronic hoarseness. COMPARISON: No relevant prior imaging. TECHNIQUE: Helical imaging was performed in the axial plane with generation of coronal and sagittal reformatted images. This CT examination was performed using dose optimization techniques as appropriate, variously including the following: *Automated exposure control *Adjustment of mA and/or kV according to patient size (this includes techniques or standardized protocols for targeted exams where dose is matched to indication/reason for exam; i.e. extremities or head) *Use of iterative reconstruction technique DLP: 320 mGy-cm FINDINGS: The diagnostic accuracy of this examination is limited due to the absence of intravenous contrast. There is eccentric mucosal thickening along the left anterolateral aspect of the subglottic airway with possible infiltration of the paraglottic space. This finding is best visualized on axial image 51 of 95 series 12. No identifiable extralaryngeal mass. The thyroid gland is normal and the remainder of the visualized visceral soft tissues are normal. No worrisome erosive changes within the laryngeal cartilage. There does appear to be asymmetric albeit nonspecific sclerosis within the left arytenoid cartilage. Pharyngeal mucosal spaces are symmetric. Parapharyngeal and retromaxillary fat is preserved. Field Technician spaces are symmetric. The parotid and submandibular glands are normal. The tongue base and about are normal. There is centrilobular emphysema visualized at the apices of both lungs. Scattered atheromatous caliber indication involve the aortic arch apex and both carotid bifurcations. No acute osseous finding. Specifically no worrisome lytic or blastic osseous lesion. There is multilevel degenerative spondylosis of the cervical spine with at least mild canal stenosis at the level of C5-C6. The skull base is grossly intact. No mastoid or middle ear effusion. No active paranasal sinus disease. Limited visualization of the intracranial anatomy reveals no abnormal finding. CT/CT soft tissue neck wo IV con IMPRESSION: The diagnostic accuracy of this examination is limited due to the absence of intravenous contrast. There is eccentric mucosal thickening along the left anterolateral aspect of the subglottic airway with possible infiltration or effacement of the paraglottic space. The possibility of a mucosal neoplasm cannot be excluded on the basis of this examination. Correlation with laryngoscopy is therefore recommended with regard to this finding. No pathologically enlarged cervical lymph nodes.
[2024-02-22 11:01] LABS: Creatinine POC 1.8 mg/dL (0.5-1.4); GFR POC 40
== END 2024-02-22 08:36 | disposition home or self-care (01) ==
LOC: HO.CT 08:35
PROVIDERS: Visit Provider Pediatrics
DX: R49.0 Dysphonia (principal); F17.201 Nicotine dependence, unspecified, in remission
CPT/HCPCS: 70490; 82565

== ENCOUNTER → 2024-02-22 11:20 | Outpatient (BNV) | payer MEDICARE, SELFPAY | PROVIDERS: PCP Student in an Organized Health Care Education/Training Program; Referring Provider Internal Medicine; Visit Provider Internal Medicine | DX: D61.818 Other pancytopenia (principal) | CPT/HCPCS: 99204; G2211 ==

== ENCOUNTER 2024-08-16 11:47 | Outpatient (REF) | payer MEDICARE, SELFPAY ==
--- OUTSIDE RECORDS SUMMARY | 2024-08-16 14:17 | XMS_ITS | Encounter Summary ---
Author Organization [employer] Address [address] [place] [address] Care Team Providers Care Job Spotter Name Role Phone Farida Tam MD Primary Care Provider [phone] Reason for Visit * Reason Onset Date Comments Med Refill 05/21/2024 Encounter Details Date Type Department Care Team ([facility] st Contact Info) Description 05/21/2024 Telephone [facility] [address] [place] [address] Farida Tam MD [address] [place] [address] Med Refill Social History Tobacco Use Types Packs/Day Years Used Date Smoking Tobacco: Some Days Cigarettes Passive Smoke Exposure: Past Smokeless Tobacco: Never Comments:Has resumed smoking 2 weeks ago . Overall has been smoking x the last 50 years. Depression Answer Date Recorded Patient Health Questionnaire-9 Score 4 03/29/2023 Housing Stability Answer Date Recorded What is your housing situation today? I have [place]ton lama 04/10/[address] you li ve. Do you have problems with any of the following? None of the above 04/10/2024 Food Insecurity Answer Date Recorded Within the past 12 months, y ou worried that your food would run out before you got money to buy more: Never True 04/10/2024 Within the past 12 months,th e food you bought just didn't last and you didn't have enough money to get more: Never True Transportation Answer Date Recorded In the past 12 months, has l ack of transportation kept you from medical appts, meetings, work or from getting things needed for daily living? No 04/10/2024 Utilities Answer Date Recorded In the past 12 months, has t he electric, gas, oil or water company threatened to shut off services in your home? No 04/10/2024 Depression Answer Date Recorded Patient Health Questionnaire-2 Score 2 03/29/2023 Internet Access Answer Date Recorded Internet Access Q1 No 04/10/2024 Internet Access Q2 I do not want or need it 03/25 Sex and Gender Information Value Date Recorded Sex Assigned at Male 05/24/2022 10:29 AM EDT Legal Sex Male 10:29 AM EDT Gender Identity Male 05/24/2022 10:29 AM EDT Sexual Orientation Straight 12/03/2022 10 :07 AM EDT documented as of this encounter Miscellaneous Notes * Telephone Encounter - Swetha Cook - 05/21/2024 10:01 AM EDT TC from pt requesting medication refill. Medications needing refill : oxyCODONE (Roxicod[facility]) [facility] documented in this encounter Plan of Treatment Upcoming Encounters Date Type Department Care Team (Late st Contact Info) Description 10/18/2024 10:30 AM EDT Clinical Support [facility] [address] [place] [address] Lilibeth Augustin, RN [address] [place] [address] documented as of this encounter Visit Diagnoses Not on filedocumented in this encounter Additional Health Concerns Assessment Noted Time PHQ-9 Depression Total Score: 4 03/29/20 23 11:07 AM EDT documented as of this encounter Care Teams Job Spotter Relationship Specialty Start Date End Date Farida Tam MD [address] [place] [address] PCP - General Family Medicine 09/02/15 documented as of this encounter
--- OUTSIDE RECORDS SUMMARY | 2024-08-16 14:17 | XMS_ITS | Encounter Summary ---
Author Organization [employer] Address [address] 7t [place] [address] Care Team Providers Care Supervisor Paste Mixing Name Role Phone Farida Tam MD Primary Care Provider [phone] Reason for Visit * Reason Onset Date Comments Med Refill 03/14/2024 Encounter Details Date Type Department Care Team ([facility] st Contact Info) Description 03/14/2024 Telephone [facility] MEDICINE [address] [place] [address] Farida Tam MD [address] [place] [address] Med Refill Social History Tobacco Use Types Packs/Day Years Used Date Smoking Tobacco: Every Day Cigarettes Passive Smoke Exposure: Past Smokeless Tobacco: Never Comments:Has resumed smoking 2 weeks ago . Overall has been smoking x the last 50 years. Depression Answer Date Recorded Patient Health Questionnaire-9 Score 4 03/29/2023 Housing Stability Answer Date Recorded What is your housing situation today? I have colton lama 05/11/[address] you li ve. Do you have problems with any of the following? None of the above 05/11/2023 Food Insecurity Answer Date Recorded Within the past 12 months, y ou worried that your food would run out before you got money to buy more: Never True 05/11/2023 Within the past 12 months,th e food you bought just didn't last and you didn't have enough money to get more: Never True Transportation Answer Date Recorded In the past 12 months, has l ack of transportation kept you from medical appts, meetings, work or from getting things needed for daily living? No 05/11/2023 Utilities Answer Date Recorded In the past 12 months, has t he electric, gas, oil or water company threatened to shut off services in your home? No 05/11/2023 Depression Answer Date Recorded Patient Health Questionnaire-2 Score 2 03/29/2023 Sex and Gender Information Value Date Recorded Sex Assigned at Male 05/24/2022 10:29 AM EDT Legal Sex Male 10:29 AM EDT Gender Identity Male 05/24/2022 10:29 AM EDT Sexual Orientation Straight 12/03/2022 10 :07 AM EDT documented as of this encounter Miscellaneous Notes * Telephone Encounter - Freda Og - 03/14/2024 1:55 PM EDT TC from pt Spouse requesting medication refill. Medications needing refill : oxyCODONE (Roxicodone) 5 MG immediate release tablet To be sent to: [facility] documented in this encounter Plan of Treatment Upcoming Encounters Date Type Department Care Team (Late st Contact Info) Description 10/18/2024 10:30 AM EDT Clinical Support [facility] MED & PEDS [address] [place] [address] Lilibeth Augustin, NATHALIE [address] [place] [address] documented as of this encounter Visit Diagnoses Not on filedocumented in this encounter Additional Health Concerns Assessment Noted Time PHQ-9 Depression Total Score: 4 03/29/20 23 11:07 AM EDT documented as of this encounter Care Teams Supervisor Paste Mixing Relationship Specialty Start Date End Date Farida Tam MD [address] [place] [address] PCP - General Family Medicine 09/02/15 documented as of this encounter
--- OUTSIDE RECORDS SUMMARY | 2024-08-16 14:17 | XMS_ITS | Encounter Summary ---
Author Organization [employer] Address 75 [facility] 7t [place] [address] Care Team Providers Care Recovery Unit Operator Name Role Phone Farida Tam MD Primary Care Provider [phone] Reason for Visit * Reason Onset Date Comments Med Refill 05/30/2024 Encounter Details Date Type Department Care Team ([facility] st Contact Info) Description 05/30/2024 Telephone [facility] MEDICINE [address] [place] [address] Farida Tam MD 505 [place] [address] Med Refill Social History Tobacco Use Types [...] encounter Miscellaneous Notes * Telephone Encounter - Phillip Courtney - 05/30/2024 1:14 PM EST Tc from pt requesting a refill for oxyCODONE (Roxicodone) 5 MG immediate release tablet documented in this encounter Plan of Treatment Upcoming Encounters Date Type Department Care Team (Late st Contact Info) Description 10/18/2024 10:30 AM EDT Clinical Support [facility] MED & PEDS 505 [place] [address] Lilibeth Augustin, RN 505 [place] [address] documented as of this encounter Visit Diagnoses Not on filedocumented in this encounter Additional Health Concerns Assessment Noted Time PHQ-9 Depression Total Score: 4 03/29/20 23 11:07 AM EDT documented as of this encounter Care Teams Recovery Unit Operator Relationship Specialty Start Date End Date Farida Tam MD [address] [place] [address] PCP - General Family Medicine 09/02/15 documented as of this encounter
--- OUTSIDE RECORDS SUMMARY | 2024-08-16 14:17 | XMS_ITS | Encounter Summary ---
Author Organization [employer] Address [address] [facility] 7t [place] [address] Care Team Providers Care Pan Washer Name Role Phone Farida Tam MD Primary Care Provider [phone] Reason for Visit * Reason Comments Med Refill Encounter Details Date Type Department Care Team ([facility] st Contact Info) Description 07/11/2024 Refill [facility] MED & PEDS [address] [place], [place] [phone] Farida Tam MD 505 [place], [place] [phone] Back pain, unspecified back location, unspecified back pain laterality, unspecified chronicity Social History Tobacco Use Types Packs/Day Years [...] AM EDT documented as of this encounter Plan of Treatment Upcoming Encounters Date Type Department Care Team (Late st Contact Info) Description 10/18/2024 10:30 AM EDT Clinical Support [facility] MED & PEDS [address] [place] [address] Lilibeth Augustin, NATHALIE [address] [place] [address] documented as of this encounter Visit Diagnoses Diagnosis Back pain, unspecified back location, unspecified back pain laterality, unspecified chronicity documented in this encounter Additional Health Concerns Assessment Noted Time PHQ-9 Depression Total Score: 4 03/29/20 23 11:07 AM EDT documented as of this encounter Care Teams Pan Washer Relationship Specialty Start Date End Date Farida Tam MD [address] [place] [address] PCP - General Family Medicine 09/02/15 documented as of this encounter
--- OUTSIDE RECORDS SUMMARY | 2024-08-16 14:17 | XMS_ITS | Encounter Summary ---
Author Organization [employer] Address [address] [facility] [address] [place] [address] Care Team Providers Care Crude Oil Driver Name Role Phone Farida Tam MD Primary Care Provider [phone] Reason for Visit * Reason Comments Med Refill Encounter Details Date Type Department Care Team ([facility] st Contact Info) Description 08/14/[address] [facility] MEDICINE [address] [place] [address] Farida Tam MD [address] [place] [address] Back pain, unspecified back location, unspecified back [...] Upcoming Encounters Date Type Department Care Team ([facility] st Contact Info) Description 10/18/2024 10:30 AM EDT Clinical Support [facility] MED & PEDS 505 [place] [address] Lilibeth Augustin, NATHALIE 505 [place] [address] documented as of this encounter Visit Diagnoses Diagnosis Back pain, unspecified back location, unspecified back pain laterality, unspecified chronicity documented in this encounter Additional Health Concerns Assessment Noted Time PHQ-9 Depression Total Score: 4 03/29/20 23 11:07 AM EDT documented as of this encounter Care Teams Crude Oil Driver Relationship Specialty Start Date End Date Farida Tam MD [address] [place] [address] PCP - General Family Medicine 09/02/15 documented as of this encounter
--- OUTSIDE RECORDS SUMMARY | 2024-08-16 14:17 | XMS_ITS | Encounter Summary ---
Author Organization [employer] Address [address] [place] [address] 7t [place] [address] Care Team Providers Care Life Sciences Director Name Role Phone Farida Tam MD Primary Care Provider [phone] Reason for Visit * Reason Onset Date Comments Med Refill 07/23/2024 Encounter Details Date Type Department Care Team ([facility] st Contact Info) Description 07/23/2024 Refill [facility] MED [facility] PEDS [address] [place], [place] [phone] Farida Tam MD 505 [place] [address] Back pain, unspecified back location, unspecified back [...] is your housing situation today? I have coltonluis antonio lama 04/10/[address] you [...] encounter Miscellaneous Notes * Telephone Encounter - Caroline Salmon - 07/23/2024 10:43 AM EST TC from pt requesting medication refill. Medications needing refill : oxyCODONE (Roxicodone) 5 MG immediate release tablet To be sent to: [facility] - [place], [place] - [address] [place] [address] documented in this encounter Plan of Treatment Upcoming Encounters Date Type Department Care Team ([facility] st Contact Info) Description 10/18/2024 10:30 AM EDT Clinical Support [facility] MED & PEDS [address] [place] [address] Lilibeth Augustin, NATHALIE 505 [place] [address] documented as of this encounter Visit Diagnoses Diagnosis Back pain, unspecified back location, unspecified back pain laterality, unspecified chronicity documented in this encounter Additional Health Concerns Assessment Noted Time PHQ-9 Depression Total Score: 4 03/29/20 23 11:07 AM EDT documented as of this encounter Care Teams Life Sciences Director Relationship Specialty Start Date End Date Farida Tam MD [address] [place] [address] PCP - General Family Medicine 09/02/15 documented as of this encounter
--- OUTSIDE RECORDS SUMMARY | 2024-08-16 14:17 | XMS_ITS | Encounter Summary ---
Author Organization [employer] Address [address] [facility] 7t [place] [address] Care Team Providers Care Firing Pin Gauger Name Role Phone Farida Tam MD Primary Care Provider [phone] Reason for Visit * Reason Onset Date Comments Med Refill 03/21/2024 Encounter Details Date Type Department Care Team ([facility] st Contact Info) Description 03/21/2024 Telephone [facility] MEDICINE [address] [place] [address] Farida Tam MD [address] [place] [address] Med Refill Social History Tobacco Use Types [...] encounter Miscellaneous Notes * Telephone Encounter - Ru Berrios - 03/21/2024 11:52 AM EDT TC from pt requesting medication refill. Medications needing refill : oxyCODONE (Roxicodone) 5 MG immediate release tablet To be sent to: [facility] - [place], [place] - [address] [place] [address] documented in this encounter Plan of Treatment Upcoming Encounters Date Type Department Care Team (Late st Contact Info) Description 10/18/2024 10:30 AM EDT Clinical Support [facility] MED & PEDS [address] [place] [address] Lilibeth Augustin, NATHALIE 505 [place] [address] documented as of this encounter Visit Diagnoses Not on filedocumented in this encounter Additional Health Concerns Assessment Noted Time PHQ-9 Depression Total Score: 4 03/29/20 23 11:07 AM EDT documented as of this encounter Care Teams Firing Pin Gauger Relationship Specialty Start Date End Date Farida Tam MD [address] [place] [address] PCP - General Family Medicine 09/02/15 documented as of this encounter
--- OUTSIDE RECORDS SUMMARY | 2024-08-16 14:17 | XMS_ITS | Encounter Summary ---
Author Organization [employer] Address [address] [facility] 7t [place] [address] Care Team Providers Care Fire Protection Inspector Name Role Phone Farida Tam MD Primary Care Provider [phone] Reason for Visit * Reason Comments Med Refill Encounter Details Date Type Department Care Team ([facility] st Contact Info) Description 06/15/2024 Refill [facility] MED & PEDS [address] [place], [place] [phone] Farida Tam MD [address] [place], [place] [phone] Back pain, unspecified back location, unspecified back [...] 10/18/2024 10:30 AM EDT Clinical Support [facility] MED & PEDS [address] [place] [address] Lilibeth Augustin, NATHALIE [address] [place] [address] documented as of this encounter Visit Diagnoses Diagnosis Back pain, unspecified back location, unspecified back pain laterality, unspecified chronicity documented in this encounter Additional Health Concerns Assessment Noted Time PHQ-9 Depression Total Score: 4 03/29/20 23 11:07 AM EDT documented as of this encounter Care Teams Fire Protection Inspector Relationship Specialty Start Date End Date Farida Tam MD [address] [place] [address] PCP - General Family Medicine 09/02/15 documented as of this encounter
--- OUTSIDE RECORDS SUMMARY | 2024-08-16 14:17 | XMS_ITS | Encounter Summary ---
Author Organization [employer] Address [address] [facility] 7t [place] [address] Care Team Providers Care Fighter Pilot Name Role Phone Farida Tam MD Primary Care Provider [phone] Reason for Visit * Reason Comments controlled substance treatment Encounter Details Date Type Department Care Team (Latest Contact Info) Description 07/26/2024 9:30 AM EST Clinical Support [facility] MED & PEDS [address] [place], [place] [phone] Lilibeth Augustin, RN 505 [place] [address] Back pain, unspecified back location, unspecified back [...] AM EDT documented as of this encounter Progress Notes * Lilibeth Augustin RN - 07/26/2024 9:30 AM EST 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 Patient taking Oxycodone 5mg Q 6hrs PRN. Patient also uses Marijuana, recreational use; PCP aware. Denies any adverse reactions. Denies ETOH, smoking cigarettes or illicit drugs use. States uses vape sometimes. Current pain level is 5/10 located in the shoulder and lower back. Patient states Oxycododne is providing about 60% pain relief, states it is working better than Tramadol (states Tramadol was providing 30% pain relief). Last PCP f/u was on 04/10/24. No questions/ concerns at this time. O: VSS. GOLF CLUB MANAGER tier 4. LICENSED PHYSICAL THERAPIST checked on 07/26/24. Pill count performed, patient has 22 pills left, 18 expected. Medications are not being overused. Utox performed, positive for THC, OXY only, as expected. .Fentanyl testing: negative Lot# [id number] Exp: 07-08-25 A: Chronic opioid use r/t chronic pain. P: Patient to cont. with current pain medication regimen as needed and take medication only as directed. Next GOLF CLUB MANAGER [place] scheduled for 10/18/24 @ 10:30am. Reminder slip given. f/u sooner PRN. Patient verbalized understanding and agreed to plan. documented in this encounter Plan of Treatment Upcoming Encounters Date Type Department Care Team (Late st Contact Info) Description 10/18/2024 10:30 AM EDT Clinical Support [facility] MED & PEDS [address] [place] [address] Lilibeth Augustin, RN [address] [place] [address] documented as of this encounter Procedures Procedure Name Priority Date/Time Associated Diagnosis Comments POCT PATRICK-14 URINE DRUG SCREEN Routine 07/26/2024 9:43 AM EST Back pain, unspecified back location, unspecified back pain laterality, unspecified chronicity documented in this encounter Results * POCT PATRICK-14 Urine Drug Screen (07/26/2024 9:43 AM EST) Oxycodone Screen, Urine Positive Urine Urine specimen obtained by clean catch procedure / Unknown 07/26/2024 9:43 AM EST Narrative Lilibeth Augustin RN - 07/26/2024 9:43 AM EST Pos: THC, OXY Lot# [id number] Exp: 06-30-25 Farida Tam MD POINT OF CARE TEST ENTER/EDIT OR DERABLES Edited Result - Final documented in this encounter Visit Diagnoses Diagnosis Back pain, unspecified back location, unspecified back pain laterality, unspecified chronicity documented in this encounter Additional Health Concerns Assessment Noted Time PHQ-9 Depression Total Score: 4 03/29/20 23 11:07 AM EDT documented as of this encounter Care Teams Fighter Pilot Relationship Specialty Start Date End Date Farida Tam MD [address] [place] [address] PCP - General Family Medicine 09/02/15 documented as of this encounter
--- OUTSIDE RECORDS SUMMARY | 2024-08-16 14:17 | XMS_ITS | Encounter Summary ---
Author Organization [employer] Address [address] [facility] 7t [place] [address] Care Team Providers Care Shell Core And Molding Supervisor Name Role Phone Farida Tam MD Primary Care Provider [phone] Reason for Visit * Reason Comments Med Refill Encounter Details Date Type Department Care Team ([facility] st Contact Info) Description 04/09/2024 Refill [facility] MED & PEDS [address] [place], [place] [phone] Farida Tam MD 505 [place], [place] [phone] Back pain, unspecified back location, unspecified back [...] Description 10/18/2024 10:30 AM EDT Clinical Support [facility] MED & PEDS [address] [place] [address] Lilibeth Augustin, NATHALIE 505 [place] [address] documented as of this encounter Visit Diagnoses Diagnosis Back pain, unspecified back location, unspecified back pain laterality, unspecified chronicity documented in this encounter Additional Health Concerns Assessment Noted Time PHQ-9 Depression Total Score: 4 03/29/20 23 11:07 AM EDT documented as of this encounter Care Teams Shell Core And Molding Supervisor Relationship Specialty Start Date End Date Farida Tam MD [address] [place] [address] PCP - General Family Medicine 09/02/15 documented as of this encounter
--- OUTSIDE RECORDS SUMMARY | 2024-08-16 14:17 | XMS_ITS | Encounter Summary ---
Author Organization [employer] Address [address] [facility] 7t [place] [address] Care Team Providers Care Spring Forger Name Role Phone Farida Tam MD Primary Care Provider [phone] Reason for Visit * Reason Onset Date Comments Med Refill 02/29/2024 Encounter Details Date Type Department Care Team ([facility] st Contact Info) Description 02/29/2024 Telephone [facility] MEDICINE [address] [place] [address] Farida Tam MD [address] [place] [address] Med Refill Social History Tobacco Use Types [...] * Telephone Encounter - Ru Berrios - 02/29/2024 9:49 AM EDT TC from pt requesting medication refill. Medications needing refill : oxyCODONE (Roxicodone) 5 MG immediate release tablet To be sent to: [facility] - [place], [place] - [address] [place] [address] documented in this encounter Plan of Treatment Upcoming Encounters Date Type Department Care Team (Late st Contact Info) Description 10/18/2024 10:30 AM EDT Clinical Support [facility] MED & PEDS [address] [place] [address] Lilibeth Augustin, NATHALIE [address] [place] [address] documented as of this encounter Visit Diagnoses Not on filedocumented in this encounter Additional Health Concerns Assessment Noted Time PHQ-9 Depression Total Score: 4 03/29/20 23 11:07 AM EDT documented as of this encounter Care Teams Spring Forger Relationship Specialty Start Date End Date Farida Tam MD [address] [place] [address] PCP - General Family Medicine 09/02/15 documented as of this encounter
--- OUTSIDE RECORDS SUMMARY | 2024-08-16 14:17 | XMS_ITS | Encounter Summary ---
Author Organization [employer] Address [address] [facility] 7t [place] [address] Care Team Providers Care Campus Wellness Coordinator Name Role Phone Farida Tam MD Primary Care Provider Reason for Visit * Reason Onset Date Comments Med Refill 04/30/2024 Encounter Details Date Type Department Care Team ([facility] st Contact Info) Description 04/30/2024 Telephone [facility] MEDICINE [address] [place] [address] Farida Tam MD [address] [place] [address] Med Refill Social History Tobacco Use Types [...] encounter Miscellaneous Notes * Telephone Encounter - Anuj Jomar - 04/30/2024 9:52 AM EDT TC from pt requesting medication refill. Medications needing refill : oxyCODONE (Roxicodone) 5 MG immediate release tablet To be sent to: [facility] documented in this encounter Plan of Treatment Upcoming Encounters Date Type Department Care Team (Late st Contact Info) Description 10/18/2024 10:30 AM EDT Clinical Support [facility] MED & PEDS [address] [place] [address] Lilibeth Augustin, RN [address] [place] [address] documented as of this encounter Visit Diagnoses Not on filedocumented in this encounter Additional Health Concerns Assessment Noted Time PHQ-9 Depression Total Score: 4 03/29/20 23 11:07 AM EDT documented as of this encounter Care Teams Campus Wellness Coordinator Relationship Specialty Start Date End Date Farida Tam MD [address] [place] [address] PCP - General Family Medicine 09/02/15 documented as of this encounter
--- OUTSIDE RECORDS SUMMARY | 2024-08-16 14:17 | XMS_ITS | Continuity of Care Document ---
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 He has had persistent hoarseness and PET scan showing similar uptake in the region. Fiberoptic examination shows reduced mobility of the left vocal fold with significant false vocal fold edema. I do not see any discrete ulcerations. However, given the persistent uptake on PET scan and the fact he is still smoking, I have suggested an exam under anesthesia and biopsy of any suspicious lesions. [email or web address] Not available 08/13/2024 14:35:04 Plan of Treatment Reminders Order Date Submit Date Provider Last Modified By Organization Details Last Modified Time Details Appointments None recorded. Lab None recorded. Referral None recorded. Procedures None recorded. Surgeries laryngosco py, direct operative with operating microscope or telescope with biopsy (SURG) 2024 025 [email or web address] Not available 06:48:28 Imaging None recorded. Medication Orders None recorded. Patient TargetsNo targets recorded. Patient InstructionsNo instructions recorded. Reason for Referral None Reported. Results Created Date Observation Date Name Description Value Unit Range Abnormal Flag Note LastModifiedBy Organization Detail LastModifiedTime 08/14/1908/06/2024 PET-C T, limit ed No observ ation record ed. [email or web address] Not Available 07/26 09:13:08 Result Notes None recorded. Problems Name Problem SNOMED Code Status Onset Date Resolution Date Notes Provider Name and Address Organization Details Recorded Time Neoplasm of uncertain behavior of larynx 60400995 Active 2023 ELLIS ALEJANDRO MD [address] [facility],[place] [address], [place], [address], [place] [facility] [place] 4 09:31:02 Chronic hoarseness 5762739524664 Active 2023 ELLIS ALEJANDRO MD [address] [facility], [address] [facility], [place], [address], [facility] - [facility] [place] 4 09:31:07 Mass of head and/or neck 181347469 Active 2023 ELLIS ALEJANDRO MD [address] [facility], [address] [facility], [place], [address], [facility] - [facility] [place] 4 10:47:42 Problem Notes None recorded. Procedures Surgical History Date Name Laterality Status Provider Name and Address Organization Details Recorded Time 08/13/19 25 Fiberoptic Laryngoscopy (Comprehensive) completed ELLIS MAHONEY MD [address] [facility],[address], [address], [facility] - [facility] 08/13/2024 14:33:59 02/07/20 24 LARYNGOSCOPY, DIRECT OPERATIVE WITH OPERATING MICROSCOPE OR TELESCOPE WITH BIOPSY (SURG) completed Han Harp [place] - [facility] 02/08/2024 10:12:14 12/21/19 24 Fiberoptic Laryngoscopy (Comprehensive) completed ELLIS MAHONEY MD [address] [facility],[address], [address], [facility] - [facility] [place] 12/21/2023 09:30:41 Remove kidney open completed ELLIS MAHONEY MD 100 [facility],[address], [address], [place] - [facility] [place] 12/21/2023 09:26:08 lobectomy of lung completed ELLIS MAHONEY MD 100 [facility],[address], [address], [place] - [facility] 12/21/2023 09:26:35 Imaging Results None recorded. Procedure Notes None recorded. Medical Equipment None Reported. Medications Name Sig Start Date Stop Date Status Note LastModified by Organization Details LastModified Time medbox status USE DIRECTED active Not Available Not Available No t Available cetirizine 10 mg tablet TAKE ONE TABLET EVERY MORNING active Not Available Not Available No t Available amlodipine 5 mg tablet TAKE ONE TABLET EVERY MORNING active Not Available Not Available No t Available tramadol 50 mg tablet TAKE ONE TABLET EVERY TWELVE HOURS NEEDED FOR SEVERE PAIN active Not Available Not Available No t Available Sudodrin 30 mg tablet Take 2 tablets every 4 hours by oral route. active Not Available Not Available No t Available amlodipine 10 mg tablet TAKE ONE TABLET EVERY MORNING FOR BLOOD PRESSURE active Not Available Not Available No t Available hydrochlorothi azide 12.5 mg capsule TAKE ONE CAPSULE EVERY MORNING active Not Available Not Available No t Available hydrochlorothi azide 25 mg tablet TAKE ONE TABLET EVERY MORNING active Not Available Not Available No t Available azelastine 137 mcg (0.1 %) nasal spray USE ONE SPRAY IN EACH NOSTRIL TWICE DAILY active Not Available Not Available No t Available colchicine 0.6 mg tablet TAKE ONE TABLET EVERY MORNING (FOR GOUT) active Not Available Not Available No t Available atenolol 50 mg tablet Take 1 tablet every day by oral route. active Not Available Not Available No t Available loratadine 10 mg tablet TAKE ONE TABLET EVERY MORNING active Not Available Not Available No t Available oxycodone 5 mg tablet TAKE ONE TABLET EVERY 6 HOURS NEEDED FOR SEVERE PAIN active Not Available Not Available No t Available amlodipine active Not Available Not Av ailable Not Available cholecalcifero l (vitamin D3) 25 mcg (1,000 unit) tablet TAKE ONE TABLET EVERY MORNING active Not Available Not Available No t Available celecoxib 50 mg capsule TAKE ONE CAPSULE EVERY MORNING active Not Available Not Available No t Available Veltassa 8.4 gram oral powder packet MIX DIRECTED AND DRINK ONCE daily active Not Available Not Available No t Available colchicine (cardiac) 0.5 mg tablet Take 1 tablet every day by oral route. active Not Available Not Available No t Available Vitals None Recorded Social History Question Answer Notes LastModified by Organizat ion Details LastModified Time Tobacco Smoking Status Current Every Day Smoker ELLIS MAHONEY MD 100 [facility] [address], [place], [address], [facility] 08/13/2024 14:13:41 Which Illicit Or Recreational Drugs Have You Used? Marijuana Information not available 12/21/2023 What Is Your Current Pack Years? 30ormorepacky ears Information not available 12/21/2023 How Much Tobacco Do You Smoke? 0.5 PPD Information not available 08/13/2024 Do You Use Any Illicit Or Recreational Drugs? Yes Information not available 12/21/2023 How Many Years Have You Smoked Tobacco? 50 Information not available 12/21/2023 Sex: Unknown Functional Status None recorded. Mental Status None recorded. Family History Nothing Reported. Medical History Condition Response Heart Problems Y Cancer Y Anxiety Y Hypertension Y Kidney Disease Past Encounters Encounter ID Performer Location Encounter Start Date Encounter Closed Date Diagnosis/Indication Diagnosis SNOMED-CT Code Diagnosis ICD10 Code Diagnosis Note [id number] ELLIS HAAS MD [facility] of [address] [address] 08/13/2024 13:38:24 08/13/2024 14:38:37 Chronic hoarseness 8980697636 105 R49.0 History of malignant neoplasm of larynx 291388617 Z85.21 Tobacco user 823926531 Z 72.0 Health Concerns Section Related Observation LastModified by Organization Detai ls LastModified Time None Recorded Concern Status LastModified by Organization Details LastModified Time None Recorded Payers Encounter Date Sequence Insurance Name Policy Number Policy Davis Covered Member ID Davis Member ID Guarantor Name 08/13/2024 1 [facility] (MEDICARE REPLACEMENT/A DVANTAGE - HMO) [id number] Mulugeta Moore [id number] Mulugeta Moore Notes Date Note Type Note Provider Name and Address Organization Details Recorded Time 08/13/2024 text/html T2 N0M0 [facility] lef t TVF s/p XRT completed 4Patient notes persistent hoarseness patient and has been smoking three quarters of a pack per day. PET scan showed reduced size but similar activity in the left vocal fold region ELLIS MAHONEY MD [address] [place] [address], [place], [address], [place] - [facility] 08/13/2024 14:36:45
--- OUTSIDE RECORDS SUMMARY | 2024-08-16 14:17 | XMS_ITS | Encounter Summary ---
Author Organization [employer] Address [address] [facility] 7t [place] [address] Care Team Providers Care Pricing Clerk Name Role Phone Farida Tam MD Primary Care Provider [phone] Reason for Visit * Reason Onset Date Comments Med Refill 04/06/2024 Encounter Details Date Type Department Care Team ([facility] st Contact Info) Description 04/06/[address] [facility] [address] [place] [address] Farida Tam MD [address] [place] [address] Med Refill Social History Tobacco Use Types [...] * Telephone Encounter - Ru Berrios - 04/09/2024 10:17 AM EDT Tc from patients spouse requesting status in regards to message below * Telephone Encounter - Ru Berrios - 04/06/2024 2:35 PM EDT TC from pt requesting medication refill. Medications needing refill : oxyCODONE (Roxicodone) 5 MG immediate release tablet To be sent to: [facility] - [place], [place] - [address] [facility] documented in this encounter Plan of Treatment Upcoming Encounters Date Type Department Care Team (Late st Contact Info) Description 10/18/2024 10:30 AM EDT Clinical Support [facility] MED & PEDS [address] [place] [address] Lilibeth Augustin, NATHALIE [address] [place] [address] documented as of this encounter Visit Diagnoses Not on filedocumented in this encounter Additional Health Concerns Assessment Noted Time PHQ-9 Depression Total Score: 4 03/29/20 23 11:07 AM EDT documented as of this encounter Care Teams Pricing Clerk Relationship Specialty Start Date End Date Farida Tam MD [address] [place] [address] PCP - General Family Medicine 09/02/15 documented as of this encounter
--- OUTSIDE RECORDS SUMMARY | 2024-08-16 14:17 | XMS_ITS | Encounter Summary ---
Author Organization [employer] Address 75 [facility] 7t [place] [address] Care Team Providers Care Stonecutter Apprentice Hand Name Role Phone Farida Tam MD Primary Care Provider [phone] Reason for Visit * Reason Onset Date Comments Med Refill 04/23/2024 Encounter Details Date Type Department Care Team ([facility] st Contact Info) Description 04/23/2024 Telephone [facility] [address] [place] [address] Farida Tam MD [address] [place] [address] Med Refill Social History Tobacco Use Types [...] * Telephone Encounter - Phillip Courtney - 04/23/2024 9:18 AM EDT Tc from pt spouse requesting a refill for oxyCODONE (Roxicodone) 5 MG immediate release tablet documented in this encounter Plan of Treatment Upcoming Encounters Date Type Department Care Team (Late st Contact Info) Description 10/18/2024 10:30 AM EDT Clinical Support [facility] PEDS [address] [place] [address] Lilibeth [place]in, RN [address] [place] [address] documented as of this encounter Visit Diagnoses Not on filedocumented in this encounter Additional Health Concerns Assessment Noted Time PHQ-9 Depression Total Score: 4 03/29/20 23 11:07 AM EDT documented as of this encounter Care Teams Stonecutter Apprentice Hand Relationship Specialty Start Date End Date Farida Tam MD [address] [place] [address] PCP - General Family Medicine 09/02/15 documented as of this encounter
--- OUTSIDE RECORDS SUMMARY | 2024-08-16 14:17 | XMS_ITS | Encounter Summary ---
Author Organization [employer] Address [address] [facility] 7t [place] [address] Care Team Providers Care Soup Person Name Role Phone Farida Tam MD Primary Care Provider [phone] Reason for Visit * Reason Onset Date Comments Med Refill 06/04/2024 Encounter Details Date Type Department Care Team ([facility] st Contact Info) Description 06/04/2024 Telephone [facility] [address] [place] [address] Farida Tam MD [address] [place] [address] Med Refill Social History Tobacco Use Types [...] * Telephone Encounter - Phillip Courtney - 06/04/2024 1:58 PM EST Tc from pt requesting a refill for oxycodone 5 mg documented in this encounter Plan of Treatment Upcoming Encounters Date Type Department Care Team (Late st Contact Info) Description 10/18/2024 10:30 AM EDT Clinical Support [facility] MED & PEDS [address] [place] [address] Lilibeth Augustin, NATHALIE [address] [place] [address] documented as of this encounter Visit Diagnoses Not on filedocumented in this encounter Additional Health Concerns Assessment Noted Time PHQ-9 Depression Total Score: 4 03/29/20 23 11:07 AM EDT documented as of this encounter Care Teams Soup Person Relationship Specialty Start Date End Date Farida Tam MD [address] [place] [address] PCP - General Family Medicine 09/02/15 documented as of this encounter
--- OUTSIDE RECORDS SUMMARY | 2024-08-16 14:17 | XMS_ITS | Encounter Summary ---
Author Organization [employer] Address [address] [facility] 7t [place] [address] Care Team Providers Care Fbi Sharpshooter Name Role Phone Farida Tam MD Primary Care Provider [phone] Reason for Visit * Reason Onset Date Comments Med Refill 02/02/2024 Encounter Details Date Type Department Care Team ([facility] st Contact Info) Description 02/02/2024 Telephone [facility] MEDICINE [address] [place] [address] Farida Tam MD [address] [place] [address] Med Refill Social History Tobacco Use Types [...] * Telephone Encounter - Freda Og - 02/02/2024 2:59 PM EDT TC from pt requesting medication refill. Medications needing refill : oxyCODONE (Roxicodone) 5 MG immediate release tablet To be sent to: [facility] - [place], [place] - [address] [place] [address] documented in this encounter Plan of Treatment Upcoming Encounters Date Type Department Care Team ([facility] st Contact Info) Description 10/18/2024 10:30 AM EDT Clinical Support [facility] MED & PEDS [address] [place] [address] Lilibeth Augustin, RN [address] [place] [address] documented as of this encounter Visit Diagnoses Not on filedocumented in this encounter Additional Health Concerns Assessment Noted Time PHQ-9 Depression Total Score: 4 03/29/20 23 11:07 AM EDT documented as of this encounter Care Teams Fbi Sharpshooter Relationship Specialty Start Date End Date Farida Tam MD [address] [place] [address] PCP - General Family Medicine 09/02/15 documented as of this encounter
--- OUTSIDE RECORDS SUMMARY | 2024-08-16 14:17 | XMS_ITS | Encounter Summary ---
Author Organization [employer] Address [address] [facility] 7t [place] [address] Care Team Providers Care Food Bagging Machine Operator Name Role Phone Farida Tam MD Primary Care Provider [phone] Reason for Visit * Reason Comments Med Refill Encounter Details Date Type Department Care Team ([facility] st Contact Info) Description 08/06/2024 Refill [facility]EDS [address] [place], [place] [phone] Farida Tam MD [address] [place], [place] [phone] Gout, unspecified cause, unspecified chronicity, unspecified site Social History Tobacco Use Types Packs/Day Years [...] Upcoming Encounters Date Type Department Care Team ([facility] st Contact Info) Description 10/18/2024 10:30 AM EDT Clinical Support [facility] [address] [place] [address] Lilibeth Augustin, NATHALIE [address] [place] [address] documented as of this encounter Visit Diagnoses Diagnosis Gout, unspecified cause, unspecified chronicity, unspecified site documented in this encounter Additional Health Concerns Assessment Noted Time PHQ-9 Depression Total Score: 4 03/29/20 23 11:07 AM EDT documented as of this encounter Care Teams Food Bagging Machine Operator Relationship Specialty Start Date End Date Farida Tam MD [address] [place] [address] PCP - General Family Medicine 09/02/15 documented as of this encounter
--- OUTSIDE RECORDS SUMMARY | 2024-08-16 14:17 | XMS_ITS | Encounter Summary ---
Author Organization [employer] Address [address] [facility] 7t [place] [address] Care Team Providers Care Channeling Machine Operator Name Role Phone Farida Tam MD Primary Care Provider Reason for Visit * Reason Onset Date Comments Med Refill 07/30/2024 Encounter Details Date Type Department Care Team ([facility] st Contact Info) Description 07/30/2024 Refill [facility]INE [address] [place] [address] Farida Tam MD [address] [place], [place] [phone] Back pain, unspecified back location, unspecified back [...] encounter Miscellaneous Notes * Telephone Encounter - Saurabh Garcia - 07/30/2024 8:49 AM EST TC from pt requesting medication refill. Medications needing refill : oxyCODONE (Roxicodone) 5 MG immediate release tablet To be sent to: [facility] - [place], [place] - [address] [place] [address] documented in this encounter Plan of Treatment Upcoming Encounters Date Type Department Care Team ([facility] st Contact Info) Description 10/18/2024 10:30 AM EDT Clinical Support [facility] MED & PEDS [address] [place] [address] Lilibeth Augustin RN [address] [place] [address] documented as of this encounter Visit Diagnoses Diagnosis Back pain, unspecified back location, unspecified back pain laterality, unspecified chronicity documented in this encounter Additional Health Concerns Assessment Noted Time PHQ-9 Depression Total Score: 4 03/29/20 23 11:07 AM EDT documented as of this encounter Care Teams Channeling Machine Operator Relationship Specialty Start Date End Date Farida Tam MD [address] [place] [address] PCP - General Family Medicine 09/02/15 documented as of this encounter
--- OUTSIDE RECORDS SUMMARY | 2024-08-16 14:17 | XMS_ITS | Encounter Summary ---
Author Organization [employer] Address [address] [facility] 7t [place] [address] Care Team Providers Care Ops Analyst Name Role Phone Farida Tam MD Primary Care Provider [phone] Encounter Details Date Type Department Care Team (Latest Contact Info) Description 07/26/2024 Travel Social History Tobacco Use Types Packs/Day Years [...] Description 10/18/2024 10:30 AM EDT Clinical Support [facility] PEDS [address] [place] [address] Lilibeth Augustin, NATHALIE [address] [place] [address] documented as of this encounter Visit Diagnoses Not on filedocumented in this encounter Additional Health Concerns Assessment Noted Time PHQ-9 Depression Total Score: 4 03/29/20 23 11:07 AM EDT documented as of this encounter Care Teams Ops Analyst Relationship Specialty Start Date End Date Farida Tam MD [address] [place] [address] PCP - General Family Medicine 09/02/15 documented as of this encounter
--- OUTSIDE RECORDS SUMMARY | 2024-08-16 14:17 | XMS_ITS | Clinical Summary ---
Author Organization [employer] Address [address] [facility] 7t [place] [address] Care Team Providers Care Podiatric Assistant Name Role Phone Farida Tam MD Primary Care Provider [phone] Allergies Active Allergy Reactions Criticality Noted Date Comments Amlodipine Swelling 10/03/2023 Aspirin High 09/02/2015 Other reaction(s): Hives / Skin Rash Other reaction(s): Hives / Skin Rash Other reaction(s): Hives / Skin Rash Aspirin Effervescent 09/22/2011 Other Reaction(s): Other (see comments) Upset stomach Medications cholecalcifero l (Vitamin D-3) 25 MCG (1000 UT) capsule take 1 by Oral route every day 12/01/19 22 Active naloxone (Narcan) 4 mg/0.1 mL nasal spray FOR SUSPECTED OPIOID OVERDOSE. SPRAY 0.1mL IN ONE NOSTRIL. REPEAT IN ALTERNATE NOSTRIL EVERY 2-3 MINUTES IF NEEDED. SEEK MEDICAL ATTENTION IMMEDIATELY EVEN IF PT RESPONDS. 04/14/20 22 Active hydroCHLOROthi azide (HYDRODiuril) 25 MG tablet Take 25 mg by mouth in the morning. Active azelastine (Astelin) 0.1 % nasal spray Administer 1 spray into each nostril 2 times daily. Use in each nostril as directed 30 mL 12 11/10/19 24 025 Active Patiromer Sorbitex Calcium 8.4 g packIndication s:Hyperkalemia 8.4 g once daily 7 each 01/17/20 24 Active cetirizine (ZyrTEC) 10 MG tablet TAKE ONE TABLET EVERY MORNING 30 tablet 5 03/23/20 24 Active cholecalcifero l (Vitamin D-3) 25 MCG tablet TAKE ONE TABLET EVERY MORNING 90 tablet 1 06/15/20 24 Active colchicine 0.6 MG tabletIndicati ons:Gout, unspecified cause, unspecified chronicity, unspecified site TAKE ONE TABLET EVERY MORNING (FOR GOUT) 30 tablet 11 08/07/19 25 Active oxyCODONE (Roxicodone) 5 MG immediate release tabletIndicati ons:Back pain, unspecified back location, unspecified back pain laterality, unspecified chronicity TAKE ONE TABLET EVERY 6 HOURS NEEDED FOR SEVERE PAIN 28 tablet 08/14/19 25 Active colchicine 0.6 MG tabletIndicati ons:Gout, unspecified cause, unspecified chronicity, unspecified site TAKE ONE TABLET EVERY MORNING (FOR GOUT) 30 tablet 11 09/09/19 24 025 Discontinued oxyCODONE (Roxicodone) 5 MG immediate release tabletIndicati ons:Back pain, unspecified back location, unspecified back pain laterality, unspecified chronicity Take 1 tablet (5 mg) by mouth every 6 (six) hours if needed for severe pain. 28 tablet 07/16/20 24 024 Discontinued(R eorder (will not trigger notification to Pharmacy)) oxyCODONE (Roxicodone) 5 MG immediate release tabletIndicati ons:Back pain, unspecified back location, unspecified back pain laterality, unspecified chronicity Take 1 tablet (5 mg) by mouth every 6 (six) hours if needed for severe pain. 28 tablet 07/23/20 24 025 Discontinued(R eorder (will not trigger notification to Pharmacy)) oxyCODONE (Roxicodone) 5 MG immediate release tabletIndicati ons:Back pain, unspecified back location, unspecified back pain laterality, unspecified chronicity Take 1 tablet (5 mg) by mouth every 6 (six) hours if needed for severe pain. 28 tablet 07/30/19 25 025 Discontinued(R eorder (will not trigger notification to Pharmacy)) oxyCODONE (Roxicodone) 5 MG immediate release tabletIndicati ons:Back pain, unspecified back location, unspecified back pain laterality, unspecified chronicity Take 1 tablet (5 mg) by mouth every 6 (six) hours if needed for severe pain. 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 Colon cancer screening 01/16/2024 Stage 3 chronic kidney disease 09/25/2020 Solitary pulmonary nodule 09/25/2020 Greater trochanteric pain syndrome 09/25/2020 Benign essential hypertension 07/15/2016 Primary malignant neoplasm of right lung 016 Alcohol abuse 11/30/2012 Obesity 07/21/2012 Family history of colonic polyps 06/20/2012 Chronic viral hepatitis C 10/28/2011 Overview (01/16/2024): Positive Rheumatoid factor Patient had gi consult dr nunn 2012 Declined therapy Gout 06/24/2009 Renal cell carcinoma 10/10/2007 History of colonic polyps 05/09/2007 Overview (01/16/2024): Next colonoscopy in 2017 Tobacco user 03/09/2007 Pulmonary embolism with infarction 01/11/2007 Gastroesophageal reflux disease 07/29/2006 Resolved Problems Problem Noted Date Diagnosed Date Resolved Date Essential hypertension 09/25/202004/10 Encounters Date Type Department Care Team Description 08/14/2024 Refill [facility] [address] [place] [address] Farida Tam MD Back pain, unspecified back location, unspecified back pain laterality, unspecified chronicity 08/06/2024 Refill [facility] [address] [place] [address] Farida Tam MD Back pain, unspecified back location, unspecified back pain laterality, unspecified chronicity 08/06/2024 Refill [facility] [address] [place], [place] [phone] Farida Tam MD Gout, unspecified cause, unspecified chronicity, unspecified site 07/30/2024 Refill [facility] [address] [place] [address] Farida Tam MD Back pain, unspecified back location, unspecified back pain laterality, unspecified chronicity 07/26/2024 9:30 AM EST Clinical Support [facility] [address] [place] [address] Lilibeth Augustin RN Back pain, unspecified back location, unspecified back pain laterality, unspecified chronicity 07/26/2024 Travel 07/23/2024 Refill [facility] [address] [place] [address] Farida Tam MD Back pain, unspecified back location, unspecified back pain laterality, unspecified chronicity 07/16/2024 Refill [facility] [address] [place] [address] Farida Tam MD Back pain, unspecified back location, unspecified back pain laterality, unspecified chronicity 07/11/2024 Refill [facility] [address] [place] [address] Farida Tam MD Back pain, unspecified back location, unspecified back pain laterality, unspecified chronicity 07/09/2024 Refill [facility] [address] [place] [address] Farida Tam MD Back pain, unspecified back location, unspecified back pain laterality, unspecified chronicity 07/02/2024 Refill [facility] [address] [place] [address] Farida Tam MD Back pain, unspecified back location, unspecified back pain laterality, unspecified chronicity 06/26/2024 Refill [facility] [address] [place] [address] Farida Tam MD Back pain, unspecified back location, unspecified back pain laterality, unspecified chronicity 06/19/2024 Refill [facility] [address] [place] [address] Farida Tam MD Back pain, unspecified back location, unspecified back pain laterality, unspecified chronicity 06/15/2024 Refill [facility] [address] [place] [address] Farida Tam MD Back pain, unspecified back location, unspecified back pain laterality, unspecified chronicity 06/14/2024 Refill [facility] [address] [place] [address] Farida Tam MD 06/12/2024 Refill [facility] [address] [place] [address] Farida Tam MD Back pain, unspecified back location, unspecified back pain laterality, unspecified chronicity 06/04/2024 Refill [facility] [address] [place] [address] Lilibeth Augustin RN Back pain, unspecified back location, unspecified back pain laterality, unspecified chronicity 06/04/2024 Telephone [facility] [address] [place] [phone] Farida Tam MD Med Refill 05/30/2024 Telephone [facility] [address] [place] [address] Farida Tam MD Med Refill 05/30/2024 Refill [facility] [address] [place] [address] Farida Tam MD Back pain, unspecified back location, unspecified back pain laterality, unspecified chronicity 05/25/2024 Travel 05/25/2024 Telephone [facility] [address] [place] [address] Lilibeth Augustin, NATHALIE 05/24/2024 Telephone [facility] [address] [place] [address] Lilibeth Augustin, RN 05/21/2024 Refill [facility] [address] [place] [address] Lilibeth Augustin, NATHALIE Back pain, unspecified back location, unspecified back pain laterality, unspecified chronicity 05/21/[address] [address] Farida Tam MD Med Refill from Last 3 Months Immunizations Name Administration Dates Next Due Influenza High-dose Quadriva lent Preservative Free 05/06/2022,05/19/2020 Influenza injectable quadriv alent IIV4 with preservative 05/29/2018,04/25/2017 Influenza injectable quadriv alent preservative free 07/23/2010 Influenza, High Dose Seasona l, Preservative Free 04/10/2024,04/25/2019 Influenza, IIV3, injectable 05/05/2022, 0 Influenza, Unspecified 05/06/2022,05/19/2020, Moderna Covid-19 Vaccine 12+ 10/29/2020,10/02/19 21 Pfizer Covid-19 Vaccine 12+ 05/06/2022, 1 Pfizer Covid-19 Vaccine 12+ Bivalent 05/06/2022 Pneumococcal Conjugate PCV 13 01/02/2019 Pneumococcal Conjugate PCV 20 02/06/2023 Pneumococcal Polysaccharide PPSV23 09/04/2020 TD (adult), 2 Lf tetanus tox oid, preservative free, adsorbed 07/23/2010,10/03/2003 Td (adult), unspecified 10/03/2003 Tdap 06/11/2020,03/16/2016,10/03/2003 Zoster, Recombinant 09/04/2020,,09/21/2019,09/21 Zoster, live 12/27/2012 Social History Tobacco Use Types Packs/Day Years Used Date Smoking Tobacco: Some Days Cigarettes Passive Smoke Exposure: Past Smokeless Tobacco: Never Tobacco Cessation:Ready to Q uit: Not Asked; Counseling Given: Not Answered Comments:Has resumed smoking 2 weeks ago . [...] Orientation Straight 12/03/2022 10 :07 AM EDT Last Filed Vital Signs Vital Sign Reading Time Taken Comments Blood Pressure 142/77 04/10/2024 11:25 AM EDT Pulse 81 04/10/2024 11:25 AM EDT Temperature 36.2 ??C (97.2 ??F) 04/10/2024 11:25 AM E DT Respiratory Rate 20 04/10/2024 11:25 AM EDT Oxygen Saturation 99% 04/10/2024 11:25 AM EDT Inhaled Oxygen Concentration - - Weight 64 kg (141 lb) 04/10/2024 11:25 AM EDT Height 167.6 cm (5' 6 ) 04/10/2024 11:25 AM EDT Body Mass Index 22.76 04/10/2024 11:25 AM EDT Plan of Treatment Upcoming Encounters Date Type Department Care Team (Late st Contact Info) Description 10/18/2024 10:30 AM EDT Clinical Support [facility] [address] [place] [address] Lilibeth Augustin, RN [address] [place] [address] Health Maintenance Due Date Last Done Comments CT Colonography 1952 FIT DNA/Cologuard 1952 FIT 1952 FOBT 1950 Sigmoidoscopy 1952 Alcohol/Substance Use Screening 1964 Hepatitis A Vaccines (1 of 2 - Risk 2-dose series) 1971 Hepatitis B Vaccines (1 of 3 - Risk 3-dose series) 2012 RSV Patients and Patients Aged 60 years or older (1 - Risk 60-74 years 1-dose series) 2012 Dental Oral Exam 06/23/2019 12/20/2018, , 09/09/2016 Dental Prophylaxis 06/23/2019 12/20/2018, 1 08/21/2017, 12/13/2017, Additional history exists COVID-19 Vaccine ( season) 2024 05/06/2022, 05/06/2022, 06/16/2021, Additional history exists Depression Screening 03/29/2024 03/29/2023, 03/29/20 Dental X-Ray: Bitewings 02/24/2025 02/24/20 24, 06/21/2018, 09/09/2016 SDOH Screening 04/10/2025 04/10/2024 Tobacco Screening 04/10/2025 04/10/2024 Dental X-Ray: Full Mouth 02/24/2027 024, 02/24/2024, 09/09/2016 Lipid Panel 04/05/2028 04/05/2023, 04/14/2022 DTaP/Tdap/Td Vaccines (5 - Td or Tdap) 06/11/2030 06/11/2020, 03/16/2016, 07/23/2010, Additional history exists Colonoscopy 06/04/2032 06/04/2022 Colorectal Cancer Screening 06/04/2032 Zoster Vaccines Completed 09/04/2020, 08/25, 09/21/2019, Additional history exists Pneumococcal Vaccine: 65+ Years Completed 02/06/2023, 09/04/2020, 01/02/2019 Influenza Vaccine Completed 04/10/2024, , 05/06/2022, Additional history exists HIB Vaccines Aged Out No longer eligi ble based on patient's age to complete this topic HPV Vaccines Aged Out No longer eligi ble based on patient's age to complete this topic IPV Vaccines Aged Out No longer eligi ble based on patient's age to complete this topic Meningococcal Vaccine Aged Out No zandra teodoro eligible based on patient's age to complete this topic RSV under 20 months Aged Out No longe r eligible based on patient's age to complete this topic Rotavirus Vaccines Aged Out No longer eligible based on patient's age to complete this topic Procedures Procedure Name Priority Date/Time Associated Diagnosis Comments POCT PATRICK-14 URINE DRUG SCREEN Routine 07/26/2024 9:43 AM EST Back pain, unspecified back location, unspecified back pain laterality, unspecified chronicity DIAGNOSTIC - DIAGNOSTIC IMAGING - INTRAORAL - COMPREHENSIVE SERIES OF RADIOGRAPHIC IMAGES Routine 02/24/2024 1:00 PM EDT LIPID PANEL, STANDARD Routine 04/05/2023 9:54 AM EDT Benign essential hypertension HM COLONOSCOPY Routine 06/04/2022 PROPHYLAXIS - ADULT Routine 12/20/2018 1 2:00 AM EDT PERIODIC ORAL EVALUATION - ESTABLISHED PATIENT Routine 12/20/2018 12:00 AM EDT from Last 3 Months or Most Recently Relevant to Health Maintenance Results * POCT PATRICK-14 Urine Drug Screen (07/26/2024 9:43 AM EST) Oxycodone Screen, Urine Positive Urine Urine specimen obtained by clean catch procedure / Unknown 07/26/2024 9:43 AM EST Narrative Lilibeth Augustin, NATHALIE - 07/26/2024 9:43 AM EST Pos: THC, OXY Lot# [id number] Exp: 06-30-25 Farida Tam MD POINT OF CARE TEST ENTER/EDIT OR DERABLES Edited Result - Final * (ABNORMAL) Lipid Panel, Standard (04/05/2023 9:54 AM EDT) Triglycerides 51 <150 mg/dL [facility] Comment:Desirable Triglyceri de: less than 150 mg/dLBorderline High Triglyceride 150-199 mg/dLHigh Triglyceride: 200-499 mg/dLVery High Triglyceride: greater than or equal to 5OO mg/dL Cholesterol 213(H) <200 mg/dL [facility] Comment:Desirable Cholestero l: less than 200 mg/dLBorderline High Cholesterol: 200-239 mg/dLHigh Cholesterol: greater than 239 mg/dL LDL Cholesterol Calculated 126(H) <100 mg/dL [facility] Comment:Desirable LDL: less than 100 mg/dLNear Optimal/Above Optimal LDL: 110- 129 mg/dLBorderline High LDL: 130-159 mg/dLHigh LDL: 160-189 mg/dLVery High LDL: greater than or equal to 190 mg/dL HDL Cholesterol 77 >40 mg/dL [facility] Comment:Desirable HDL: great er than 40 mg/dL Note: This HDL assay may give artificially low results in patients with liver disease. Blood Venous blood specimen / Unknown 04/05/2023 9:54 AM EDT 04/05/2023 2:30 PM EDT Farida Tam MD LAB BLOOD ORDERABLES Final Resul t [facility] [address] [place] [phone] * Colonoscopy (06/04/2022) Colonoscopy Normal Normal Historical Provider HEALTH MAINTENANCE Final Result from Last 3 Months or Most Recently Relevant to Health Maintenance Insurance [facility] MEDICARE ADVANTAGE HMO DENTAL-[facility] MEDICAID STAND ADULT DENTAL [facility] PPO Care Teams Podiatric Assistant Relationship Specialty Start Date End Date Farida Tam MD [address] [place] [phone] PCP - General Family Medicine 2/9/16
--- OUTSIDE RECORDS SUMMARY | 2024-08-16 14:17 | XMS_ITS | Encounter Summary ---
Author Organization [employer] Address [address] [facility] 7t [place] [address] Care Team Providers Care Residential Solar Sales Consultant Name Role Phone Farida Tam MD Primary Care Provider [phone] Reason for Visit * Reason Onset Date Comments Med Refill 08/06/2024 Encounter Details Date Type Department Care Team ([facility] st Contact Info) Description 08/06/[address] [facility] [address] [place] [address] Farida Tam MD [address] [place], [place] [phone] Back pain, unspecified back location, unspecified back [...] * Telephone Encounter - Saurabh Garcia - 08/06/2024 8:58 AM EST TC from pt requesting medication refill. Medications needing refill : oxyCODONE (Roxicodone) 5 MG immediate release tablet To be sent to: [facility] - [place], [place] - [address] [place] [address] documented in this encounter Plan of Treatment Upcoming Encounters Date Type Department Care Team ([facility] st Contact Info) Description 10/18/2024 10:30 AM EDT Clinical Support [facility] [address] [place] [address] Lilibeth Augustin RN [address] [place] [address] documented as of this encounter Visit Diagnoses Diagnosis Back pain, unspecified back location, unspecified back pain laterality, unspecified chronicity documented in this encounter Additional Health Concerns Assessment Noted Time PHQ-9 Depression Total Score: 4 03/29/20 23 11:07 AM EDT documented as of this encounter Care Teams Residential Solar Sales Consultant Relationship Specialty Start Date End Date Farida Tam MD [address] [place] [phone] PCP - General Family Medicine 09/02/15 documented as of this encounter
--- OUTSIDE RECORDS SUMMARY | 2024-08-16 14:17 | XMS_ITS | Encounter Summary ---
Author Organization [employer] Address [address] [facility] [address] [place] [address] Care Team Providers Care Director Of Labor And Delivery Name Role Phone Farida Tam MD Primary Care Provider [phone] Reason for Visit * Reason Onset Date Comments c/b requested 02/28/2024 Encounter Details Date Type Department Care Team ([facility] st Contact Info) Description 02/28/2024 Telephone [facility] [address] [place] [address] Farida Tam MD [address] [place], [place] [phone] c/b requested Social History Tobacco Use Types Packs/Day Years [...] encounter Miscellaneous Notes * Telephone Encounter - Nathalia Gonzalez RN - 02/28/2024 2:57 PM EDT Labs not ordered by PCP. Pt needs to contact ordering provider. * Telephone Encounter - Phillip Courtney - 02/28/2024 8:07 AM EDT Tc from pt spouse with pt on the line requesting a call back, states they were advised to get labs done, pt stated they recently had labs done by [email or web address] in [facility]. Material Preparation Worker was unable to gather further information due to call dropping. Please contact at [phone] documented in this encounter Plan of Treatment Upcoming Encounters Date Type Department Care Team (Late st Contact Info) Description 10/18/2024 10:30 AM EDT Clinical Support [facility] [address] [place] [address] Lilibeth Augustin, RN [address] [place] [address] documented as of this encounter Visit Diagnoses Not on filedocumented in this encounter Additional Health Concerns Assessment Noted Time PHQ-9 Depression Total Score: 4 03/29/20 23 11:07 AM EDT documented as of this encounter Care Teams Director Of Labor And Delivery Relationship Specialty Start Date End Date Farida Tam MD [address] [place] [id number] PCP - General Family Medicine 09/02/15 documented as of this encounter
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
--- OUTSIDE RECORDS SUMMARY | 2024-08-16 14:17 | XMS_ITS | Encounter Summary ---
Author Organization [employer] Address [address] [facility] 7t [place] [address] Care Team Providers Care Fuel Storage Technician Name Role Phone Farida Tam MD Primary Care Provider [phone] Encounter Details Date Type Department Care Team (Late st Contact Info) Description 02/17/2024 Orders Only [facility] MED & PEDS [address] [place], [place] [phone] ProviderLissa MD Social History Tobacco Use Types Packs/Day Years Used Date Smoking Tobacco: Every Day Cigarettes Passive Smoke Exposure: Past Smokeless Tobacco: Never Comments:Has resumed smoking 2 weeks ago . Overall has been smoking x the last 50 years. Depression Answer Date Recorded Patient Health Questionnaire-9 Score 4 03/29/2023 Housing Stability Answer Date Recorded What is your housing situation today? I have coltonluis antonio lama 05/11/[address] you [...] Description 10/18/2024 10:30 AM EDT Clinical Support [facility] [address] [place] [address] Lilibeth Augustin, NATHALIE [address] [place] [address] documented as of this encounter Procedures Procedure Name Priority Date/Time Associated Diagnosis Comments SURGICAL PATHOLOGY Routine 02/07/2024 2:44 PM EDT documented in this encounter Results * Surgical Pathology (02/07/2024 2:44 PM EDT) Historical Provider LAB PATHOLOGY ORDERABLES Final Result documented in this encounter Visit Diagnoses Not on filedocumented in this encounter Additional Health Concerns Assessment Noted Time PHQ-9 Depression Total Score: 4 03/29/20 23 11:07 AM EDT documented as of this encounter Care Teams Fuel Storage Technician Relationship Specialty Start Date End Date Farida Tam MD [address] [place] [address] PCP - General Family Medicine 09/02/15 documented as of this encounter
--- OUTSIDE RECORDS SUMMARY | 2024-08-16 14:18 | XMS_ITS | Encounter Summary ---
Author Organization [employer] Address [address] [facility] 7t [place] [address] Care Team Providers Care Systems Technologist Name Role Phone Farida Tam MD Primary Care Provider [phone] Encounter Details Date Type Department Care Team ([facility] st Contact Info) Description 11/16/2023 Telephone [facility] MED & PEDS [address] [place], [place] [phone] Farida Tam MD [address] [place], [place] [phone] Social History Tobacco Use Types Packs/Day Years Used Date Smoking Tobacco: Former Cigarettes Passive Smoke Exposure: Past Smokeless Tobacco: Never Depression Answer Date Recorded Patient Health Questionnaire-9 [...] Telephone Encounter - Nathalia Gonzalez RN - 11/16/2023 3:50 PM EDT Noted. * Telephone Encounter - Dionne Gomez - 11/16/2023 3:45 PM EDT Tc from pt spouse calling to advise provider pt was scheduled with ENT today (11/15) but due to being 10 min late they were not able to take pt. States they rescheduled pt for 12/20. Any questions, contact pt spouse at [phone] documented in this encounter Plan of Treatment Upcoming Encounters Date Type Department Care Team (Late st Contact Info) Description 10/18/2024 10:30 AM EDT Clinical Support [facility]EDS [address] [place] [address] Lilibeth Augustin RN [address] [place] [address] documented as of this encounter Visit Diagnoses Not on filedocumented in this encounter Additional Health Concerns Assessment Noted Time PHQ-9 Depression Total Score: 4 03/29/20 23 11:07 AM EDT documented as of this encounter Care Teams Systems Technologist Relationship Specialty Start Date End Date Farida Tam MD [address] [place] [address] PCP - General Family Medicine 09/02/15 documented as of this encounter
--- OUTSIDE RECORDS SUMMARY | 2024-08-16 14:18 | XMS_ITS | Clinical Summary ---
Author Organization [facility] Address [address] [facility] [address] [place] [address] Phone Care Team Providers Care Box Builder Name Role Phone Esvin Tam MD Primary Care Provider [phone] Allergies Active Allergy Reactions Criticality Noted Date Comments Aspirin High 09/02/2015 Other reaction(s): Hives / Skin Rash Aspirin Effervescent Other (see comments) Upset stomach Medications Cholecalciferol (Vitamin D3) 25 MCG tablet TAKE ONE TABLET EVERY MORNING 1 Active oxyCODONE (ROXICODONE) 5 MG immediate release tablet TAKE ONE TABLET EVERY 6 HOURS NEEDED FOR SEVERE PAIN 3 Active hydroCHLOROthiazi de 25 MG tabletIndications :Stage 3b chronic kidney disease (HCC),Essential hypertension Take 1 tablet (25 mg total) by mouth 1 (one) time each day 30 tablet 4 01/02/20 25 Active cetirizine (ZyrTEC) 10 MG tablet Take 10 mg by mouth 1 (one) time each day Active atenolol (TENORMIN) 50 MG tablet Take 50 mg by mouth 1 (one) time each day Active amLODIPine (NORVASC) 5 MG tabletIndications :Essential hypertension Take 1 tablet (5 mg total) by mouth 1 (one) time each day 30 tablet 4 02/27/20 25 Active Active Problems Problem Noted Date Diagnosed Date Anemia in chronic kidney disease 02/27/2024 Secondary hyperparathyroidism of renal origin Stage 3b chronic kidney disease 09/25/2020 Essential hypertension 09/25/2020 Greater trochanteric pain syndrome 09/25/2020 Hyperkalemia 09/25/2020 Solitary nodule of lung 09/25/2020 Primary malignant neoplasm of right lung 016 05/11/2023 Alcohol abuse 11/30/2012 05/11/2023 Obesity 07/21/2012 05/11/2023 Family history of colon polyp 06/20/2012 Chronic viral hepatitis C 10/28/20112022 Overview (05/11/2023): Positive Rheumatoid factor Patient had gi consult dr nunn 2012 Declined therapy Gout 06/24/2009 05/11/2023 Renal cell carcinoma 10/10/2007 05/11/2023 History of polyp of colon 05/09/20072022 Overview (05/11/2023): Next colonoscopy in 2017 Tobacco user 03/09/2007 05/11/2023 Infarction of lung due to embolus 01/11/2007 05/11/2023 Gastroesophageal reflux disease 07/29/2006 05/11/2023 Immunizations Name Administration Dates Next Due Influenza Split High Dose Pr eservative Free IM 04/25/2019 Influenza, Quadrivalent, Preservative Free 07/23 Influenza, Quadrivalent, With Preservative 05/29,04/25/2017 Influenza, Unspecified 05/06/2022,05/19/2020, Moderna SARS-COV-2 10/29/2020,10/01/2020 Pfizer SARS-COV-2 05/06/2022,06/16/2021 Pneumococcal Conjugate 13-Valent 01/02/2019 Pneumococcal Polysaccharide 09/04/2020 Shingrix 09/04/2020,09/21/2019 Td 07/23/2010,10/03/2003 Tdap 06/11/2020,03/16/2016,10/03/2003 Zoster 12/27/2012 Family History Medical History Relation Comments Diabetes Father Hypertension Father Cancer Mother Relation Status Comments Father Unknown Mother Unknown Social History Tobacco Use Types Packs/Day Years Used Date Smoking Tobacco: Some Days Cigarettes Smokeless Tobacco: Current Tobacco Cessation:Ready to Q uit: Not Asked; Counseling Given: Not Answered Alcohol Use Standard Drinks/Week Comments No 0 (1 standard drink = 0.6 oz pur e alcohol) Sex and Gender Information Value Date Recorded Sex Assigned at Not on file Legal Sex Male 4:47 PM EST Gender Identity Not on file Sexual Orientation Not on file Last Filed Vital Signs Vital Sign Reading Time Taken Comments Blood Pressure 130/72 02/27/2024 8:29 AM EDT Pulse 69 02/27/2024 8:15 AM EDT Temperature - - Respiratory Rate - - Oxygen Saturation 99% 02/27/2024 8:15 AM EDT Inhaled Oxygen Concentration - - Weight 67.6 kg (149 lb) 02/27/2024 8:15 AM EDT Height 170.2 cm (5' 7 ) 11/06/2020 2:52 PM EDT Body Mass Index 23.34 11/06/2020 2:52 PM EDT Plan of Treatment Upcoming Encounters Date Type Department Care Team (Late st Contact Info) Description 08/27/2024 9:00 AM EST Office Visit [facility] [address] [phone] Katina Ly ARNP [address] [address] Health Maintenance Due Date Last Done Comments Colorectal Cancer Screening: Annual FOBT 2001 Colorectal Cancer Screening: Colonoscopy 2001 Colorectal Cancer Screening: Sigmoidoscopy 2001 Influenza Vaccine (#1) 2024 2, 05/19/2020, 04/25/2019, Additional history exists Pneumococcal Vaccine: 65+ Years Completed 02/06/2023, 09/04/2020, 01/02/2019 Hepatitis B Vaccine Aged Out No longe r eligible based on patient's age to complete this topic Insurance [facility] MEDICARE [facility] MEDICARE Care Teams Box Builder Relationship Specialty Start Date End Date Esvin Tam MD [address] [place] [address] PCP - General Internal Medicine 09/01/23
--- OUTSIDE RECORDS SUMMARY | 2024-08-16 14:18 | XMS_ITS | Encounter Summary ---
Author Organization [employer] Address [address] [facility] 7t [place] [address] Care Team Providers Care Fish Cutting Machine Operator Name Role Phone Farida Tam MD Primary Care Provider [phone] Encounter Details Date Type Department Care Team ([facility] st Contact Info) Description 11/14/2023 Telephone [facility]S [address] [place], [place] [phone] Farida Tam MD [address] [place], [place] [phone] Social History Tobacco Use Types Packs/Day Years [...] Telephone Encounter - Nathalia Gonzalez RN - 11/14/2023 11:50 AM EDT No XR ordered for pt. CT scan was ordered but needs to be scheduled. Message sent to pt Tunezy message informing this. * Telephone Encounter - Caroline Salmon - 11/14/2023 10:52 AM EDT Tc from pt spouse calling to inform pt went to get x ray done at [facility] but was told they do not accept pt issuance . Please call pt to clarify . documented in this encounter Plan of Treatment Upcoming Encounters Date Type Department Care Team (Late st Contact Info) Description 10/18/2024 10:30 AM EDT Clinical Support [facility] MED & PEDS [address] [place] [address] Lilibeth Augustin RN [address] [place] [address] documented as of this encounter Visit Diagnoses Not on filedocumented in this encounter Additional Health Concerns Assessment Noted Time PHQ-9 Depression Total Score: 4 03/29/20 23 11:07 AM EDT documented as of this encounter Care Teams Fish Cutting Machine Operator Relationship Specialty Start Date End Date Farida Tam MD [address] [place] [address] PCP - General Family Medicine 09/02/15 documented as of this encounter
--- OUTSIDE RECORDS SUMMARY | 2024-08-16 14:18 | XMS_ITS | Encounter Summary ---
Author Organization [employer] Address [address] [place] [address] 7t [place] [address] Care Team Providers Care Mechanic Senior Name Role Phone Farida Tam MD Primary Care Provider [phone] Reason for Visit * Reason Comments Med Refill Encounter Details Date Type Department Care Team ([facility] st Contact Info) Description 01/28/2023 Refill [facility] MED & PEDS [address] [place], [place] [phone] Farida Tam MD 505 [place] [address] Pain Social History Tobacco Use Types Packs/Day Years Used Date Smoking Tobacco: Former Cigarettes Smokeless Tobacco: Never Sex and Gender Information Value Date Recorded Sex Assigned at Male 05/24/2022 10:29 AM EDT Legal Sex Male 10:29 AM EDT Gender Identity Male 05/24/2022 10:29 AM EDT Sexual Orientation Straight 12/03/2022 10 :07 AM EDT COVID-19 Exposure Response Date Recorded In the last 10 days, have yo u been in contact with someone who was confirmed or suspected to have Coronavirus/COVID-19? No / Unsure 01/04/2023 9:40 AM EDT documented as of this encounter Miscellaneous Notes * Telephone Encounter - Alina Coburn RN - 02/01/2023 9:36 AM EDT Duplicate request. Prior request approved documented in this encounter Plan of Treatment Upcoming Encounters Date Type Department Care Team (Late st Contact Info) Description 10/18/2024 10:30 AM EDT Clinical Support [facility] MED & PEDS [address] [place] [address] Lilibeth Augustin, RN 505 [place] [address] documented as of this encounter Visit Diagnoses Diagnosis Pain Generalized pain documented in this encounter Care Teams Mechanic Senior Relationship Specialty Start Date End Date Farida Tam MD [address] [place] [address] PCP - General Family Medicine 09/02/15 documented as of this encounter
--- OUTSIDE RECORDS SUMMARY | 2024-08-16 14:18 | XMS_ITS | Encounter Summary ---
Author Organization [employer] Address [address] [facility] 7t [place] [address] Care Team Providers Care Lead Pl Sql Developer Name Role Phone Farida Tam MD Primary Care Provider [phone] Reason for Visit * Reason Onset Date Comments Med Refill 12/31/2022 Encounter Details Date Type Department Care Team ([facility] st Contact Info) Description 12/31/2022 Telephone [facility] MEDICINE 230 [place] [address] Farida Tam MD 505 [place] [address] Med Refill Social History Tobacco Use Types Packs/Day Years Used Date Smoking Tobacco: Former Cigarettes Smokeless Tobacco: Never Depression Answer Date Recorded Patient Health Questionnaire-9 Score 4 03/29/2023 Housing Stability Answer Date Recorded What is your housing situation today? I have colton kelby 04/10/[address] you li [...] * Telephone Encounter - Phillip Courtney - 12/31/2022 8:24 AM EDT Tc from pt spouse requesting a med refill for tramadol 50 mg documented in this encounter Plan of Treatment Upcoming Encounters Date Type Department Care Team (Late st Contact Info) Description 10/18/2024 10:30 AM EDT Clinical Support [facility] CHC MED & PEDS 505 [place] [address] Lilibeth Augustin, RN 505 [place] [address] documented as of this encounter Visit Diagnoses Not on filedocumented in this encounter Care Teams Lead Pl Sql Developer Relationship Specialty Start Date End Date Farida Tam MD [address] [place] [address] PCP - General Family Medicine 09/02/15 documented as of this encounter
--- OUTSIDE RECORDS SUMMARY | 2024-08-16 14:18 | XMS_ITS | Encounter Summary ---
Author Organization [employer] Address 75 [facility] 7t [place] [address] Care Team Providers Care Special Education Administrator Name Role Phone Farida Tam MD Primary Care Provider [phone] Reason for Visit * Reason Onset Date Comments Call back request 11/14/2023 Encounter Details Date Type Department Care Team ([facility] Contact Info) Description 11/14/2023 Telephone [facility] MEDICINE 230 [place] [address] Farida Tam MD 505 [place], [place] [phone] Call back request Social History Tobacco Use Types Packs/Day Years [...] encounter Miscellaneous Notes * Telephone Encounter - Wing Lopez RN - 11/14/2023 1:48 PM EDT Tc to pt's spouse, she stated that pt has appt on 12/15 with radiologist at [address] [place] [address]. Pt will have an an upcoming appt with Dr. Pastrana on 11/23. Spouse verbalizes understanding and agreement with plan. * Telephone Encounter - Andrews Ibrahim - 11/14/2023 12:37 PM EDT Tc from spouse requesting call back regarding scheduling no further information/details provided. Please contact spouse at [phone]. documented in this encounter Plan of Treatment Upcoming Encounters Date Type Department Care Team ([facility] st Contact Info) Description 10/18/2024 10:30 AM EDT Clinical Support [facility] MED & PEDS 505 [place] [address] Lilibeth Augustin RN 505 [place] [address] documented as of this encounter Visit Diagnoses Not on filedocumented in this encounter Additional Health Concerns Assessment Noted Time PHQ-9 Depression Total Score: 4 03/29/20 23 11:07 AM EDT documented as of this encounter Care Teams Special Education Administrator Relationship Specialty Start Date End Date Farida Tam MD [address] [place] [address] PCP - General Family Medicine 09/02/15 documented as of this encounter
--- OUTSIDE RECORDS SUMMARY | 2024-08-16 14:18 | XMS_ITS | Encounter Summary ---
Author Organization [employer] Address 75 [facility] 7t [place] [address] Care Team Providers Care Yarder Name Role Phone Farida Tam MD Primary Care Provider [phone] Reason for Visit * Reason Onset Date Comments Results 02/02/2024 Encounter Details Date Type Department Care Team ([facility] st Contact Info) Description 02/02/2024 Telephone [facility] 230 [place] [address] Farida Tam MD [address] [place], [place] [phone] Results Social History Tobacco Use Types Packs/Day Years [...] encounter Miscellaneous Notes * Telephone Encounter - Andrews Ibrahim - 02/02/2024 12:41 PM EDT TC from [facility] requesting Lab results to be faxed regarding upcoming surgery. Type of results: CBC and Basic Metabolic Panel Date when done: 01/16 Facility: [facility] labs documented in this encounter Plan of Treatment Upcoming Encounters Date Type Department Care Team (Late st Contact Info) Description 10/18/2024 10:30 AM EDT Clinical Support [facility] CH[facility] MED & PEDS 505 [place] [address] Lilibeth Augustin, NATHALIE 505 [place] [address] documented as of this encounter Visit Diagnoses Not on filedocumented in this encounter Additional Health Concerns Assessment Noted Time PHQ-9 Depression Total Score: 4 03/29/20 23 11:07 AM EDT documented as of this encounter Care Teams Yarder Relationship Specialty Start Date End Date Farida Tam MD 230 [place] [address] PCP - General Family Medicine 09/02/15 documented as of this encounter
--- OUTSIDE RECORDS SUMMARY | 2024-08-16 14:18 | XMS_ITS | Encounter Summary ---
Author Organization [employer] Address 75 [facility] 7t [place] [address] Care Team Providers Care Apartment Coordinator Name Role Phone Farida Tam MD Primary Care Provider [phone] Reason for Visit * Reason Onset Date Comments Medication Question 12/30/2023 Encounter Details Date Type Department Care Team ([facility] st Contact Info) Description 12/30/2023 Telephone [facility] MEDICINE 230 [place] [address] Farida Tam MD 505 [place], [place] [phone] Medication Question Social History Tobacco Use Types Packs/Day Years [...] Telephone Encounter - Wing Lopez RN - 01/05/2024 1:53 PM EDT Tc to pt and spoke to spouse. Spouse reports pt has a skin tag above the right eyes that is described as small and not bothering the pt. No pain or any issues reported. Was first noticed about a couple of weeks ago. Spouse was asking if OTC skin tag removal could work even though the instruction onthe product says do not use around the eye. Advised not to use those products and offered appt to be referred to derm. Spouse said she would call back after consulting with pt. * Telephone Encounter - Andrews Ibrahim - 01/05/2024 1:00 PM EDT Tc from pt returning call regarding message prior. * Telephone Encounter - Wing Lopez RN - 01/03/2024 2:22 PM EDT Tc to pt's spouse regarding message below. Unable to reach pt's spouse, left message for pt's spouse to call back. * Telephone Encounter - Andrews Ibrahim - 12/30/2023 9:32 AM EDT Tc from Spouse requesting call back from nurse for clarification on skin pad. Please contact pt at [phone]. documented in this encounter Plan of Treatment Upcoming Encounters Date Type Department Care Team (Late st Contact Info) Description 10/18/2024 10:30 AM EDT Clinical Support [facility] CHC MED & PEDS 505 [place] [address] Lilibeth Augustin, RN 505 [place] [address] documented as of this encounter Visit Diagnoses Not on filedocumented in this encounter Additional Health Concerns Assessment Noted Time PHQ-9 Depression Total Score: 4 03/29/20 23 11:07 AM EDT documented as of this encounter Care Teams Apartment Coordinator Relationship Specialty Start Date End Date Farida Tam MD 230 [place] [address] PCP - General Family Medicine 09/02/15 documented as of this encounter
--- OUTSIDE RECORDS SUMMARY | 2024-08-16 14:18 | XMS_ITS | Encounter Summary ---
Author Organization [employer] Address [address] [place] [address] 7t [place] [address] Care Team Providers Care Industrial Safety And Health Specialist Name Role Phone Farida Tam MD Primary Care Provider [phone] Encounter Details Date Type Department Care Team (Late st Contact Info) Description 02/01/2023 Orders Only [facility] MED & PEDS 505 [place] [address] Farida Tam MD 505 [place] [address] Social History Tobacco Use Types Packs/Day Years [...] 10/18/2024 10:30 AM EDT Clinical Support [facility] MED & PEDS 505 [place] [address] Lilibeth Augustin RN 505 [place], [place] [phone] documented as of this encounter Visit Diagnoses Not on filedocumented in this encounter Care Teams Industrial Safety And Health Specialist Relationship Specialty Start Date End Date Farida Tam MD [address] [place] [address] PCP - General Family Medicine 09/02/15 documented as of this encounter
--- OUTSIDE RECORDS SUMMARY | 2024-08-16 14:18 | XMS_ITS | Encounter Summary ---
Author Organization [employer] Address [address] [place] [address] 7t [place] [address] Care Team Providers Care Electrical Engineering Technologist Name Role Phone Farida Tam MD Primary Care Provider [phone] Reason for Visit * Reason Onset Date Comments Pre-op Exam 01/05/2024 Encounter Details Date Type Department Care Team ([facility] Contact Info) Description 01/05/2024 Telephone [facility] MED & PEDS 505 [place], [place] [phone] Farida Tam MD 505 [place] [address] Pre-op Exam Social History Tobacco Use Types Packs/Day Years [...] Telephone Encounter - Wing Lopez RN - 01/10/2024 1:11 PM EDT Tc to Carolyn regarding clarification on if just a CT scan is needed due to the pt's labs. Unable to reach Carolyn. Left message for her to call back. * Telephone Encounter - Dionne Gomez - 01/05/2024 2:54 PM EDT Date of Surgery: not scheduled yet Surgical procedure being done: direct laryngoscopy with biopsy for cancer Type of anesthesia: general Lab needed: CBC and basic metabolic panel EKG: yes Surgeon's name: duc Serrano Facility name: [facility] Surgeon's office number: [phone] Surgeon's office fax number: [phone] Contact name (person you spoke with): Katina Last office note from surgeon requested: Pre-Op notes, Labs, EKG documented in this encounter Plan of Treatment Upcoming Encounters Date Type Department Care Team (Late st Contact Info) Description 10/18/2024 10:30 AM EDT Clinical Support [facility] MED & PEDS 505 [place] [address] Lilibeth Augustin, NATHALIE 505 [place] [address] documented as of this encounter Visit Diagnoses Diagnosis Back pain, unspecified back location, unspecified back pain laterality, unspecified chronicity documented in this encounter Additional Health Concerns Assessment Noted Time PHQ-9 Depression Total Score: 4 03/29/20 23 11:07 AM EDT documented as of this encounter Care Teams Electrical Engineering Technologist Relationship Specialty Start Date End Date Farida Tam MD [address] [place] [address] PCP - General Family Medicine 09/02/15 documented as of this encounter
--- OUTSIDE RECORDS SUMMARY | 2024-08-16 14:18 | XMS_ITS | Encounter Summary ---
Author Organization [employer] Address [address] [place] [address] 7t [place] [address] Care Team Providers Care Instructor Warper Name Role Phone Farida Tam MD Primary Care Provider [phone] Reason for Visit * Reason Onset Date Comments Med Refill 04/26/2023 Encounter Details Date Type Department Care Team ([facility] st Contact Info) Description 04/26/2023 Telephone [facility] MED & PEDS [address] [place], [place] [phone] Farida Tam MD 505 [place] [address] Med Refill Social History Tobacco Use Types Packs/Day Years Used Date Smoking Tobacco: Former Cigarettes Smokeless Tobacco: Never Depression Answer Date Recorded Patient Health Questionnaire-9 Score 4 03/29/2023 Depression Answer Date Recorded Patient Health Questionnaire-2 Score 2 03/29/2023 Sex and Gender Information Value Date Recorded Sex Assigned at Male 05/24/2022 10:29 AM EDT Legal Sex Male 10:29 AM EDT Gender Identity Male 05/24/2022 10:29 AM EDT Sexual Orientation Straight 12/03/2022 10 :07 AM EDT documented as of this encounter Miscellaneous Notes * Telephone Encounter - Dionne Gomez - 04/26/2023 10:08 AM EDT Tc from pt spouse requesting medication refill on celecoxib (CeleBREX) 50 MG capsule. documented in this encounter Plan of Treatment Upcoming Encounters Date Type Department Care Team (Late st Contact Info) Description 10/18/2024 10:30 AM EDT Clinical Support [facility] CHC MED & PEDS 505 [place] [address] Lilibeth Augustin, RN [address] [place] [address] documented as of this encounter Visit Diagnoses Not on filedocumented in this encounter Additional Health Concerns Assessment Noted Time PHQ-9 Depression Total Score: 4 03/29/20 23 11:07 AM EDT documented as of this encounter Care Teams Instructor Warper Relationship Specialty Start Date End Date Farida Tam MD [address] [place] [address] PCP - General Family Medicine 09/02/15 documented as of this encounter
--- OUTSIDE RECORDS SUMMARY | 2024-08-16 14:18 | XMS_ITS | Encounter Summary ---
Author Organization [employer] Address 75 [facility] 7t [place] [address] Care Team Providers Care Nursing Assistant Name Role Phone Farida Tam MD Primary Care Provider [phone] Reason for Visit * Reason Onset Date Comments Med Refill 05/20/2023 Encounter Details Date Type Department Care Team ([facility] st Contact Info) Description 05/20/2023 Telephone [facility] MEDICINE 230 [place] [address] Farida Tam MD 505 [place] [address] Med Refill Social History Tobacco Use Types [...] encounter Miscellaneous Notes * Telephone Encounter - Latia Monahan - 05/20/2023 2:02 PM EDT Tc from requesting med refill on; oxyCODONE (Roxicodone) 5 MG immediate release tablet documented in this encounter Plan of Treatment Upcoming Encounters Date Type Department Care Team (Late st Contact Info) Description 10/18/2024 10:30 AM EDT Clinical Support [facility] MED & PEDS 505 [place] [address] Lilibeth Augustin RN 505 [place] [address] documented as of this encounter Visit Diagnoses Not on filedocumented in this encounter Additional Health Concerns Assessment Noted Time PHQ-9 Depression Total Score: 4 03/29/20 23 11:07 AM EDT documented as of this encounter Care Teams Nursing Assistant Relationship Specialty Start Date End Date Farida Tam MD [address] [place] [address] PCP - General Family Medicine 09/02/15 documented as of this encounter
--- OUTSIDE RECORDS SUMMARY | 2024-08-16 14:18 | XMS_ITS | Encounter Summary ---
Author Organization [employer] Address [address] [place] [address] 7t [place] [address] Care Team Providers Care Patternmaker Grader Name Role Phone Farida Tam MD Primary Care Provider [phone] Encounter Details Date Type Department Care Team (Latest Contact Info) Description 12/20/2018 Abstract [facility] CONVERSIONS Dental, Provider, DDS Social History Tobacco Use Types Packs/Day Years Used Date Smoking Tobacco: Never Assessed Sex and Gender Information Value Date Recorded Sex Assigned at Male 05/24/2022 10:29 AM EDT Legal Sex Male 10:29 AM EDT Gender Identity Male 05/24/2022 10:29 AM EDT Sexual Orientation Straight 12/03/2022 10 :07 AM EDT documented as of this encounter Plan of Treatment Upcoming Encounters Date Type Department Care Team (Late st Contact Info) Description 10/18/2024 10:30 AM EDT Clinical Support [facility] CHC MED & PEDS 505 [place] [address] Lilibeth Augustin, NATHALIE 505 [place] [address] documented as of this encounter Visit Diagnoses Not on filedocumented in this encounter Care Teams Patternmaker Grader Relationship Specialty Start Date End Date Farida Tam MD [address] [place] [address] PCP - General Family Medicine 09/02/15 documented as of this encounter
--- OUTSIDE RECORDS SUMMARY | 2024-08-16 14:18 | XMS_ITS | Encounter Summary ---
Author Organization [employer] Address 75 [facility] 7t [place] [address] Care Team Providers Care Electronics Computer Mechanic Name Role Phone Farida Tam MD Primary Care Provider [phone] Encounter Details Date Type Department Care Team ([facility] st Contact Info) Description 01/06/2024 Orders Only [facility] CHC MED & PEDS [address] [place], [place] [phone] Nisa Haji MD 505 [place] [address] Back pain, unspecified back location, unspecified back [...] Description 10/18/2024 10:30 AM EDT Clinical Support [facility] CHC MED & PEDS [address] [place] [address] Lilibeth Augustin RN 505 [place] [address] documented as of this encounter Visit Diagnoses Diagnosis Back pain, unspecified back location, unspecified back pain laterality, unspecified chronicity documented in this encounter Additional Health Concerns Assessment Noted Time PHQ-9 Depression Total Score: 4 03/29/20 23 11:07 AM EDT documented as of this encounter Care Teams Electronics Computer Mechanic Relationship Specialty Start Date End Date Farida Tam MD 230 [place] [address] PCP - General Family Medicine 09/02/15 documented as of this encounter
--- OUTSIDE RECORDS SUMMARY | 2024-08-16 14:18 | XMS_ITS | Encounter Summary ---
Author Organization [employer] Address [address] [facility] 7t [place] [address] Care Team Providers Care Carton Marker Machine Name Role Phone Farida Tam MD Primary Care Provider [phone] Reason for Visit * Reason Onset Date Comments c/b requested 01/23/2024 Encounter Details Date Type Department Care Team ([facility] st Contact Info) Description 01/23/2024 Telephone [facility] MEDICINE 230 [place] [address] Farida Tam MD 505 [place], [place] [phone] c/b requested Social History Tobacco Use Types [...] Telephone Encounter - Wing Lopez RN - 01/24/2024 4:08 PM EDT Tc to pt to inquire about what could be done for message below. Unable to reach pt, left message for pt to call back. * Telephone Encounter - Phillip Courtney - 01/23/2024 9:02 AM EDT Tc from pt spouse requesting a call back, states they were scheduled today for 10am with a specialist per last visit with Dr. Haji however ghost writer does not see any scheduled appt or completed referral. Please contact at [phone] documented in this encounter Plan of Treatment Upcoming Encounters Date Type Department Care Team (Late st Contact Info) Description 10/18/2024 10:30 AM EDT Clinical Support [facility] MED & PEDS 505 [place] [address] Lilibeth Augustin, RN 505 [place] [address] documented as of this encounter Visit Diagnoses Not on filedocumented in this encounter Additional Health Concerns Assessment Noted Time PHQ-9 Depression Total Score: 4 03/29/20 23 11:07 AM EDT documented as of this encounter Care Teams Carton Marker Machine Relationship Specialty Start Date End Date Farida Tam MD [address] [place] [address] PCP - General Family Medicine 09/02/15 documented as of this encounter
--- OUTSIDE RECORDS SUMMARY | 2024-08-16 14:18 | XMS_ITS | Encounter Summary ---
Author Organization [employer] Address 75 [facility] 7t [place] [address] Care Team Providers Care Pyrotechnic Assembler Name Role Phone Farida Tam MD Primary Care Provider [phone] Reason for Visit * Reason Onset Date Comments Med Refill 03/29/2023 Encounter Details Date Type Department Care Team ([facility] st Contact Info) Description 03/29/2023 Telephone [facility] MEDICINE [address] [place] [address] Farida Tam MD 505 [place] [address] Med Refill Social History Tobacco Use Types [...] * Telephone Encounter - Phillip Courtney - 03/29/2023 8:11 AM EDT Tc from pt requesting a refill for traMADol (Ultram) 50 MG tablet documented in this encounter Plan of Treatment Upcoming Encounters Date Type Department Care Team (Late st Contact Info) Description 10/18/2024 10:30 AM EDT Clinical Support [facility] CHC MED & PEDS 505 [place] [address] Lilibeth Augustin, NATHALIE 505 [place] [address] documented as of this encounter Visit Diagnoses Not on filedocumented in this encounter Additional Health Concerns Assessment Noted Time PHQ-9 Depression Total Score: 4 03/29/20 23 11:07 AM EDT documented as of this encounter Care Teams Pyrotechnic Assembler Relationship Specialty Start Date End Date Farida Tam MD 230 [place] [address] PCP - General Family Medicine 09/02/15 documented as of this encounter
--- OUTSIDE RECORDS SUMMARY | 2024-08-16 14:18 | XMS_ITS | Patient Health Record ---
Author Organization [facility] Address [address] [place] [address] Care Team Providers Care Edge Sawyer Name Role Phone PARISAJESSICAKEIKO Primary Care Provider Joey Cleaning Jr Unavailable [phone] ALLERGIES No Known Allergies REASON FOR REFERRAL No Information MEDICATIONS Medication SIG (Take, Route, Frequency, Duration) Notes Start Date End Date Status MiraLax (colon prep) 17 GM/SCOOP mixed with Gatorade or Crystal Light Orally begin at 5:00 p.m. the day before the procedure for 1 day 05/12/2022 Active traMADol HCl 50 MG TAKE ONE TABLET BY M OUTH EVERY TWELVE HOURS Diagnosis Unavailable Oral for 28 Active Colchicine 0.6 MG TAKE ONE TABLET EVER Y MORNING (FOR GOUT) Oral for 30 Active Loratadine 10 MG 1 tablet Orally Once a day for 30 day(s) Active SM All Day Allergy Relief 10 MG TAKE ONE TABLET BY MOUTH EVERY MORNING Oral for 30 Active Atenolol 50 MG TAKE ONE TABLET EVER Y MORNING FOR BLOOD PRESSURE Oral for 30 Active amLODIPine Besylate 10 MG Oral for 30 Active Vitamin D3 25 MCG TAKE ONE TABLET BY M OUTH EVERY MORNING Oral for 30 Active Dulcolax (colon prep) 5 MG take at 3:00 p.m and 7:00p.m. Orally two tablets twice a day for one day for 30 days 05/12/2022 Active IMMUNIZATIONS Vaccine Route Administration Date Status Comme nts Influenza Unknown 05/05/2022 Administered SOCIAL HISTORY Tobacco Use: Social History Observation Description Date Details (start date - stop date) Former Smoker NA - NA Sex Assigned At : Social History Observation Description Sex Assigned At Unknown Tobacco Use/Smoking Question Answer Notes Patient is a former smoker Alcohol Screen Question Answer Notes Did you have a drink containing alcohol in the p ast year? No Points 0 Interpretation Negative PROBLEMS Problem Type ICD Code Onset Dates Problem Status W/U Status Risk SNOMED Code Notes Problem Colon cancer screening (Z12.11) Active confirmed [id number] PLAN OF TREATMENT Future Test Test Name Order Date COLONOSCOPY 05/12/2022 Insurance Providers Payer Name Payer Address Payer Phone Subscriber Number Group Number Insured Name Patient Relationship to Insured Coverage Start Date Coverage End Date A[employer] [facility] COMPLETE (REFERRAL REQUIRED) [address] [address] [place] [address] [id number] FEI LYNCH Self - patient is the insured MEDICAL (GENERAL) HISTORY Medical History History ICD Code Hypertension Gout Sciatica Arthritis Chronic kidney disease Pulmonary embolism Surgical History Surgery Date(Month/Year) Right middle lobectomy for lung cancer right inguinal hernia repair Right nephrectomy.
--- OUTSIDE RECORDS SUMMARY | 2024-08-16 14:18 | XMS_ITS | Encounter Summary ---
Author Organization [employer] [facility] Address [address] [place] [address] 7 [place] [address] Care Team Providers Care Online Tutor Name Role Phone Farida Tam MD Primary Care Provider [phone] Reason for Visit * Reason Comments Med Refill Encounter Details Date Type Department Care Team (Late st Contact Info) Description 04/27/2023 Refill [facility] [address] [place] [address] Farida Tam MD 505 [place] [address] Social History Tobacco Use Types Packs/Day Years [...] 10/18/2024 10:30 AM EDT Clinical Support [facility] [address] [place] [address] Lilibeth Augustin RN 505 [place] [address] documented as of this encounter Visit Diagnoses Not on filedocumented in this encounter Additional Health Concerns Assessment Noted Time PHQ-9 Depression Total Score: 4 03/29/20 23 11:07 AM EDT documented as of this encounter Care Teams Online Tutor Relationship Specialty Start Date End Date Farida Tam MD [address] [place] [address] PCP - General Family Medicine 09/02/15 documented as of this encounter
--- OUTSIDE RECORDS SUMMARY | 2024-08-16 14:18 | XMS_ITS | Encounter Summary ---
Author Organization [employer] Address 75 [facility] 7t [place] [address] Care Team Providers Care Logistic Specialist Name Role Phone Farida Tam MD Primary Care Provider [phone] Reason for Visit * Reason Comments Med Refill Encounter Details Date Type Department Care Team (Late st Contact Info) Description 05/23/2023 Refill [facility] MEDICINE [address] [place] [address] Clint Guan MD 505 [place] [address] Back pain, unspecified back location, unspecified back [...] Description 10/18/2024 10:30 AM EDT Clinical Support [facility] & PEDS 505 [place] [address] Lilibeth Augustin, NATHALIE 505 [place] [address] documented as of this encounter Visit Diagnoses Diagnosis Back pain, unspecified back location, unspecified back pain laterality, unspecified chronicity documented in this encounter Additional Health Concerns Assessment Noted Time PHQ-9 Depression Total Score: 4 03/29/20 23 11:07 AM EDT documented as of this encounter Care Teams Logistic Specialist Relationship Specialty Start Date End Date Farida Tam MD [address] [place] [address] PCP - General Family Medicine 09/02/15 documented as of this encounter
--- OUTSIDE RECORDS SUMMARY | 2024-08-16 14:18 | XMS_ITS | Encounter Summary ---
Author Organization [employer] Address [address] [facility] 7t [place] [address] Care Team Providers Care Bread Oven Operator Name Role Phone Farida Tam MD Primary Care Provider [phone] Encounter Details Date Type Department Care Team ([facility] st Contact Info) Description 12/28/2023 Telephone [facility] MED & PEDS 505 [place], [place] [phone] Farida Tam MD 505 [place], [place] [phone] Social History Tobacco Use Types Packs/Day Years [...] Telephone Encounter - Wing Lopez RN - 12/28/2023 3:30 PM EDT Tc to pt's spouses who is requesting for status of pt's CT scan order. Was ordered on 11/09 and according to notes a CT was scheduled for 11/16 with high priority but pt's spouses says there was no appt for this CT scan. Spouse also stated that [facility] won't take their insurance. Conversation on 11/13 mentions [facility] [place]. Advised to spouse that would send message to diagnostic team to work out a solution for pt to get aCT scan based on their insurance. Stated to spouse to call back next week if has heard nothing. Spouse verbalized understanding and agreement with plan. * Telephone Encounter - Wing Lopez RN - 12/28/2023 2:28 PM EDT Tc to pt's spouse for clarification on re booking appt request. Unable to reach spouse, left message for spouse to call back. * Telephone Encounter - Caroline Salmon - 12/28/2023 12:53 PM EDT Tc from Padmini requesting help to re book appt for referral that was sent on 11/10/23 to the MRI center. Please call pt to clarify. documented in this encounter Plan of Treatment Upcoming Encounters Date Type Department Care Team (Late st Contact Info) Description 10/18/2024 10:30 AM EDT Clinical Support [facility] MED & PEDS [address] [place] [address] Lilibeth Augustin, RN 505 [place] [address] documented as of this encounter Visit Diagnoses Not on filedocumented in this encounter Additional Health Concerns Assessment Noted Time PHQ-9 Depression Total Score: 4 03/29/20 23 11:07 AM EDT documented as of this encounter Care Teams Bread Oven Operator Relationship Specialty Start Date End Date Farida Tam MD [address] [place] [address] PCP - General Family Medicine 09/02/15 documented as of this encounter
--- OUTSIDE RECORDS SUMMARY | 2024-08-16 14:18 | XMS_ITS | Encounter Summary ---
Author Organization [employer] Address 75 [facility] 7t [place] [address] Care Team Providers Care Utility Manager Name Role Phone Farida Tam MD Primary Care Provider [phone] Reason for Visit * Reason Onset Date Comments Med Refill 07/13/2023 Encounter Details Date Type Department Care Team ([facility] st Contact Info) Description 07/13/2023 Telephone [facility] MEDICINE [address] [place] [address] Farida Tam MD 505 [place], [place] [phone] Med Refill Social History Tobacco Use Types [...] * Telephone Encounter - Latia Monahan - 07/13/2023 9:58 AM EST Tc from pt requesting med refill on; oxyCODONE (Roxicodone) 5 MG immediate release tablet documented in this encounter Plan of Treatment Upcoming Encounters Date Type Department Care Team ([facility] st Contact Info) Description 10/18/2024 10:30 AM EDT Clinical Support [facility] MED & PEDS [address] [place] [address] Lilibeth Augustin RN 505 [place] [address] documented as of this encounter Visit Diagnoses Not on filedocumented in this encounter Additional Health Concerns Assessment Noted Time PHQ-9 Depression Total Score: 4 03/29/20 23 11:07 AM EDT documented as of this encounter Care Teams Utility Manager Relationship Specialty Start Date End Date Farida Tam MD [address] [place] [address] PCP - General Family Medicine 09/02/15 documented as of this encounter
--- OUTSIDE RECORDS SUMMARY | 2024-08-16 14:19 | XMS_ITS | Encounter Summary ---
Author Organization [facility] Address [address] [facility] [address] [place] [address] Phone Care Team Providers Care Maintenance Of Way Superintendent Name Role Phone Esvin Tam MD Primary Care Provider [phone] Encounter Details Date Type Department Care Team (Late st Contact Info) Description 01/02/2024 Office Communication [facility] [address] [facility] [address] [place] [address] Katina Ly ARNP [address] [address] Social History Tobacco Use Types Packs/Day Years Used Date Smoking Tobacco: Some Days Cigarettes Smokeless Tobacco: Current Alcohol Use Standard Drinks/Week Comments No 0 (1 standard drink = 0.6 oz pur e alcohol) Sex and Gender Information Value Date Recorded Sex Assigned at Not on file Legal Sex Male 4:47 PM EST Gender Identity Not on file Sexual Orientation Not on file documented as of this encounter Miscellaneous Notes * Telephone Encounter - Katina Ly ARNP - 01/04/2024 1:27 AM EDT Thanks! documented in this encounter Plan of Treatment Upcoming Encounters Date Type Department Care Team (Late st Contact Info) Description 08/27/2024 9:00 AM EST Office Visit [facility] [address] [address] Katina Ly ARNP [address] [address] documented as of this encounter Visit Diagnoses Not on filedocumented in this encounter Care Teams Maintenance Of Way Superintendent Relationship Specialty Start Date End Date Esvin Tam MD [address] [place] [address] PCP - General Internal Medicine 09/01/23 documented as of this encounter
[2024-08-16 14:31] LABS: Anion Gap 11 (12-20); Blood Urea Nitrogen 26 mg/dL (9-16); Calcium 8.8 mg/dL (8.4-10.2); Carbon Dioxide 29 mmol/L (22-29); Chloride 105 mmol/L (96-108); Estimated Glomerular Filt Rate 36; Magnesium 1.9 mg/dL (1.6-2.6); Potassium 4.6 mmol/L (3.3-5.1); Sodium 140 mmol/L (135-145)
[2024-08-16 14:32] LABS: Hemoglobin 10.6 g/dl (14.0-18.0); Mean Corpuscular HGB Conc 33.1 g/dl (31.0-36.0); Mean Corpuscular Hemoglobin 34.6 pg (27.0-33.0); Mean Corpuscular Volume 104.6 fL (80.0-98.0); Mean Platelet Volume 11.6 fL (9.4-12.4); Platelet Count 112 X10*3/uL (160-400); Red Blood Count 3.06 X10*6/uL (4.60-5.80); Red Cell Distribution Width 12.6 % (11.0-16.0); White Blood Count 4.2 X10*3/uL (4.8-10.8)
[2024-08-16 14:42] LABS: Parathyroid Hormone Intact 126.7 pg/mL (8.7-77.1)
[2024-08-16 14:50] LABS: Protein/Creatinine Ratio, Ur 0.84 (<0.2); Total Protein Urine Random 61 mg/dL (<12)
== END 2024-08-16 11:48 | disposition home or self-care (01) ==
LOC: HO.CHCLDS 11:47
PROVIDERS: PCP Student in an Organized Health Care Education/Training Program; Visit Provider Internal Medicine Nephrology
DX: I12.9 Hypertensive chronic kidney disease with stage 1 through stage 4 chronic kidney disease, or unspecified chronic kidney disease (principal); D63.1 Anemia in chronic kidney disease; N18.32 Chronic kidney disease, stage 3b; E78.5 Hyperlipidemia, unspecified
CPT/HCPCS: 36415; 80051; 82310; 82565; 82570; 83735; 83970; 84156; 84520; 85027

== ENCOUNTER 2025-04-17 09:55 | Outpatient (REF) | payer MEDICARE, SELFPAY ==
--- OUTSIDE RECORDS SUMMARY | 2025-04-17 12:02 | XMS_ITS | Encounter Summary ---
Author Organization [employer] Address [address] [facility] 7t [place] [address] Care Team Providers Care Sheet Metal Worker Apprentice Name Role Phone Farida Tam MD Primary Care Provider [phone] Encounter Details Date Type Department Care Team ([facility] st Contact Info) Description 11/14/2023 Telephone [facility] MED & PEDS 505 [place], [place] [phone] Farida Tam MD 505 [place], [place] [phone] Social History Tobacco Use Types Packs/Day Years [...] to be scheduled. Message sent to pt Locals[employer] message informing this. * Telephone Encounter - Caroline Salmon - 11/14/2023 10:52 AM EDT Tc from pt spouse calling to inform pt went [place] get [place] [facility] [place] was told they do not accept pt issuance . Please call pt to clarify . documented in this encounter Plan of Treatment Upcoming Encounters Date Type Department Care Team (Late st Contact Info) Description 05/30/2025 9:30 AM EST Clinical Support [facility] MED & PEDS [address] [place] [address] Lilibeth Augustin RN 505 [place] [address] documented as of this encounter Visit Diagnoses Not on filedocumented in this encounter Additional Health Concerns Assessment Noted Time PHQ-9 Depression Total Score: 4 03/29/20 23 11:07 AM EDT documented as of this encounter Care Teams Sheet Metal Worker Apprentice Relationship Specialty Start Date End Date Farida Tam MD [address] [place] [address] PCP - General Family Medicine 09/02/15 documented as of this encounter
--- OUTSIDE RECORDS SUMMARY | 2025-04-17 12:02 | XMS_ITS | Encounter Summary ---
Author Organization [employer] Address 75 [facility] 7t [place] [address] Care Team Providers Care Carbon Accountant Name Role Phone Farida Tam MD Primary Care Provider [phone] Reason for Visit * Reason Onset Date Comments Med Refill 03/21/2024 Encounter Details Date Type Department Care Team ([facility] st Contact Info) Description 03/21/2024 Telephone [facility] MEDICINE [address] [place] [address] Farida Tam MD [address] [place] [address] Med Refill Social History Tobacco Use Types [...] immediate release tablet To be sent to: [facility] - [place], [place] - [address] [place] [address] documented in this encounter Plan of Treatment Upcoming Encounters Date Type Department Care Team (Late st Contact Info) Description 05/30/2025 9:30 AM EST Clinical Support [facility] MED & PEDS 505 [place] [address] Lilibeth Augustin, NATHALIE 505 [place] [address] documented as of this encounter Visit Diagnoses Not on filedocumented in this encounter Additional Health Concerns Assessment Noted Time PHQ-9 Depression Total Score: 4 03/29/20 23 11:07 AM EDT documented as of this encounter Care Teams Carbon Accountant Relationship Specialty Start Date End Date Farida Tam MD [address] [place] [address] PCP - General Family Medicine 09/02/15 documented as of this encounter
--- OUTSIDE RECORDS SUMMARY | 2025-04-17 12:02 | XMS_ITS | Encounter Summary ---
Author Organization [employer] Address 75 [facility] 7t [place] [address] Care Team Providers Care Hire Car Driver Name Role Phone Farida Tam MD Primary Care Provider [phone] Reason for Visit * Reason Onset Date Comments Med Refill 05/21/2024 Encounter Details Date Type Department Care Team ([facility] st Contact Info) Description 05/21/2024 Telephone [facility] MEDICINE 230 [place] [address] Farida Tam MD [address] [place] [address] Med Refill Social History Tobacco Use Types [...] oxyCODONE (Roxicod[facility]) [facility] documented in this encounter Plan of Treatment Upcoming Encounters Date Type Department Care Team (Late st Contact Info) Description 05/30/2025 9:30 AM EST Clinical Support [facility] MED & PEDS 505 [place] [address] Lilibeth Augustin, RN 505 [place] [address] documented as of this encounter Visit Diagnoses Not on filedocumented in this encounter Additional Health Concerns Assessment Noted Time PHQ-9 Depression Total Score: 4 03/29/20 23 11:07 AM EDT documented as of this encounter Care Teams Hire Car Driver Relationship Specialty Start Date End Date Farida Tam MD [address] [place] [address] PCP - General Family Medicine 09/02/15 documented as of this encounter
--- OUTSIDE RECORDS SUMMARY | 2025-04-17 12:02 | XMS_ITS | Encounter Summary ---
Author Organization [employer] Address [address] [facility] 7t [place] [address] Care Team Providers Care Industrial Painter Name Role Phone Farida Tam MD Primary Care Provider [phone] Reason for Visit * Reason Comments Med Refill Encounter Details Date Type Department Care Team ([facility] st Contact Info) Description 06/15/2024 Refill [facility] MED [facility] PEDS 505 [place], [place] [phone] Farida Tam MD 505 [place], [place] [phone] Back pain, unspecified back location, unspecified back [...] [facility] Description 05/30/2025 9:30 AM EST Clinical Support [facility] MED & PEDS 505 [place] [address] Lilibeth Augustin, NATHALIE 505 [place] [address] documented as of this encounter Visit Diagnoses Diagnosis Back pain, unspecified back location, unspecified back pain laterality, unspecified chronicity documented in this encounter Additional Health Concerns Assessment Noted Time PHQ-9 Depression Total Score: 4 03/29/20 23 11:07 AM EDT documented as of this encounter Care Teams Industrial Painter Relationship Specialty Start Date End Date Farida Tam MD [address] [place] [address] PCP - General Family Medicine 09/02/15 documented as of this encounter
--- OUTSIDE RECORDS SUMMARY | 2025-04-17 12:02 | XMS_ITS | Encounter Summary ---
Author Organization [employer] Address [address] [place] [address] 7t [place] [address] Care Team Providers Care Linoleum Tile Floor Layer Name Role Phone Farida Tam MD Primary Care Provider [phone] Encounter Details Date Type Department Care Team (Latest Contact Info) Description 12/20/2018 Abstract [facility] CONVERSIONS Dental, Provider, DDS Social History [...] Description 05/30/2025 9:30 AM EST Clinical Support [facility] MED & PEDS 505 [place] [address] Lilibeth Augustin, NATHALIE 505 [place] [address] documented as of this encounter Visit Diagnoses Not on filedocumented in this encounter Care Teams Linoleum Tile Floor Layer Relationship Specialty Start Date End Date Farida Tam MD [address] [place] [address] PCP - General Family Medicine 09/02/15 documented as of this encounter
--- OUTSIDE RECORDS SUMMARY | 2025-04-17 12:02 | XMS_ITS | Encounter Summary ---
Author Organization [employer] Address [address] [facility] 7t [place] [address] Care Team Providers Care Periodontal Assistant Name Role Phone Farida Tam MD Primary Care Provider [phone] Reason for Visit * Reason Comments Med Refill Encounter Details Date Type Department Care Team (Late st Contact Info) Description 05/23/2023 Refill [facility] MEDICINE [address] [place] [address] Clint Guan MD [address] [place] [address] Back pain, unspecified back location, unspecified back [...] Description 05/30/2025 9:30 AM EST Clinical Support [facility] MED & PEDS 505 [place] [address] Lilibeth Augustin, NATHALIE 505 [place] [address] documented as of this encounter Visit Diagnoses Diagnosis Back pain, unspecified back location, unspecified back pain laterality, unspecified chronicity documented in this encounter Additional Health Concerns Assessment Noted Time PHQ-9 Depression Total Score: 4 03/29/20 23 11:07 AM EDT documented as of this encounter Care Teams Periodontal Assistant Relationship Specialty Start Date End Date Farida Tam MD [address] [place] [address] PCP - General Family Medicine 09/02/15 documented as of this encounter
--- OUTSIDE RECORDS SUMMARY | 2025-04-17 12:02 | XMS_ITS | Encounter Summary ---
Author Organization [employer] Address [address] [facility] 7t [place] [address] Care Team Providers Care Licensed Clinical Social Worker Name Role Phone Farida Tam MD Primary Care Provider [phone] Encounter Details Date Type Department Care Team ([facility] st Contact Info) Description 11/16/2023 Telephone [facility] CHC MED & PEDS 505 [place], [place] [phone] Farida Tam MD 505 [place], [place] [phone] Social History Tobacco Use Types Packs/Day Years [...] 12/20. Any questions, contact pt spouse at [phone] documented in this encounter Plan of Treatment Upcoming Encounters Date Type Department Care Team (Late st Contact Info) Description 05/30/2025 9:30 AM EST Clinical Support [facility] MED & PEDS 505 [place] [address] Lilibeth Augustin, NATHALIE 505 [place] [address] documented as of this encounter Visit Diagnoses Not on filedocumented in this encounter Additional Health Concerns Assessment Noted Time PHQ-9 Depression Total Score: 4 03/29/20 23 11:07 AM EDT documented as of this encounter Care Teams Licensed Clinical Social Worker Relationship Specialty Start Date End Date Farida Tam MD 230 [place] [address] PCP - General Family Medicine 09/02/15 documented as of this encounter
--- OUTSIDE RECORDS SUMMARY | 2025-04-17 12:02 | XMS_ITS | Clinical Summary ---
Author Organization [facility] Address [address] [place] [address] Phone Care Team Providers Care Vehicle Calibration Engineer Name Role Phone Yuki Bergman Unavailable [phone] Farida Tam MD Primary Care Provider [phone] Allergies Active Allergy Reactions Criticality Noted Date Comments Amlodipine Swelling 10/03/2023 Pt currently taking and denies any swelling Aspirin High 09/02/2015 Other reaction(s): Hives / Skin Rash Other reaction(s): Hives / Skin Rash Aspirin-Sod Bicarb-Citric Acid Other (See Comments) 09/22/2011 Other Reaction(s): Other (see comments) Upset stomach Upset stomach Medications oxyCODONE 5 MG immediate release tablet TAKE ONE TABLET EVERY 6 HOURS NEEDED FOR SEVERE PAIN Active hydroCHLOROthiaz teresa 12.5 mg capsule Active cholecalciferol (VITAMIN D3) 25 MCG (1,000 unit) tablet 1 tablet every morning. 12/30/2023 Active cetirizine (ZYRTEC) 10 MG tablet 1 tablet every morning. 10/03/2023 Active atenolol (TENORMIN) 50 mg tablet Take 1 tablet by mouth daily. Active amLODIPine (NORVASC) 5 MG tablet Take 5 mg by mouth. 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 Status post definitive radiation therapy History of right kidney cancer status post right nephrectomy over 15 years ago History of right middle lobe lung cancer status post lobectomy 2016 DISCUSSION: I discussed all impression, natural history of the disease, stage of the disease and further management in this regard. Patient has early stage cancer which has high cure rates with current standard treatment options. Patient completed definitive radiation therapy. 08/06/2024: Restaging PET scan showed interval decrease size with similar FDG activity of the lesion of the left true vocal cord, likely posttreatment changes. Dr. Falcon has ordered a follow-up PET/CT in 3 months. He has been doing well from oncological standpoint without any evidence of cancer recurrence and I reassured him about this. He is likely cured from other cancers kidney and lung. RECOMMENDATIONS: Dr. Falcon has ordered 3-month follow-up PET CT scan and he will follow-up with him after that. He should continue with his ENT follow-ups on 6 monthly basis Return for follow-up here in 6 months and sooner if necessary Thank you very much for allowing to participate in this patient's care Assessment & Plan (02/28/2024 1:30 PM EDT): IMPRESSION: This is a 73-year-old man with recent diagnosis of left glottic/vocal cord cancer. Stage II (cT2,cN0,cM0) History of right kidney cancer status post right nephrectomy over 15 years ago History of right middle lobe lung cancer status post lobectomy 2016 DISCUSSION: I discussed all impression, natural history of the disease, stage of the disease and further management in this regard. Patient has early stage cancer which has high cure rates with current standard treatment options. I discussed current guidelines which recommends larynx preserving/conservation surgery or radiation therapy. Patient has seen radiation oncology and ENT surgeon and consensus is for definitive radiation therapy. There is no role for concurrent chemotherapy in this setting. He is likely cured from other cancers kidney and lung. RECOMMENDATIONS: Patient will proceed with definitive radiation therapy No indication for concurrent chemotherapy He will maintain close follow-up with radiation oncology He will undergo posttreatment restaging PET scan 3 months after completion of radiation therapy Return for follow-up here in 6 months and sooner if necessary Thank you very much for allowing to participate in this patient's care Encounters Date Type Department Care Team Description 02/08/2025 Telephone [facility] Rad Onc [address] [place] [address] Marquise Falcon MD from Last 3 Months Immunizations Immunization Administration Dates Next Due Pneumococcal polysaccharide PPSV23 09/04/2020 Tdap 06/11/2020,03/16/2016,10/03/2003 Family History Medical History Relation Comments Cancer Mother throat cancer Cancer Sister brain cancer Relation Status Comments Mother Sister Social History Tobacco Use Types Packs/Day Years Used Date Smoking Tobacco: Every Day Cigarettes Tobacco Cessation:Ready to Q uit: Not Asked; Counseling Given: Not Answered Alcohol Use Standard Drinks/Week Comments Not Currently 0 (1 standard drink = 0.6 oz pur e alcohol) Education Answer Date Recorded Are you interested in more education? Not on ki e 02/13/2024 Are you concerned about learning? Not on file 02/13/2024 No 02/13/2024 No 02/13/2024 Digital Access Answer Date Recorded No 02/13/2024 No 02/13/2024 Reliable internet access at home? Not on file 02/13/2024 Device with a working camera? Not on file Sex and Gender Information Value Date Recorded Sex Assigned at Not on file Legal Sex Male 2:16 PM EDT Gender Identity Not on file Sexual Orientation Not on file Last Filed Vital Signs Vital Sign Reading Time Taken Comments Blood Pressure 144/84 08/27/2024 3:46 PM EST Pulse 66 08/27/2024 3:46 PM EST Temperature 36.3 C (97.4 F) 08/27/2024 3:46 PM EST Respiratory Rate 20 04/16/2024 9:32 AM EDT Oxygen Saturation 100% 08/27/2024 3:46 PM EST Inhaled Oxygen Concentration - - Weight 69.9 kg (154 lb 3.2 oz) 08/27/2024 3:46 P M EST Height 170.2 cm (5' 7 ) 08/27/2024 3:46 PM EST Body Mass Index 24.15 08/27/2024 3:46 PM EST Plan of Treatment Health Maintenance Due Date Last Done Comments DEPRESSION SCREENING 1964 SMOKING Hx and SMOKELESS TOBACCO SCREENING 1965 HEPATITIS C SCREENING 1970 ZOSTER VACCINES (1 of 2) 1971 COLOGUARD 1997 COLONOSCOPY 1997 COLORECTAL CANCER SCREENING 1997 FIT TEST 1997 FOBT 1997 SIGMOIDOSCOPY 1997 VIRTUAL COLONOSCOPY 1997 ABDOMINAL AORTIC ANEURYSM (AAA) SCREENING 2017 PNEUMOCOCCAL VACCINES (50+ years) (2 of 2 - PCV) 09/04/2021 09/04/2020 INFLUENZA VACCINE (#1) 2025 COVID-19 VACCINE (1 - 2023-2 5 season) 2025 POTASSIUM LEVEL 04/05/2025 04/05/2024 RSV VACCINE (1 - 1-dose 75+ series) 2027 LIPID PANEL 04/05/2028 04/05/2023 Adult Td,Tdap Booster 06/11/2030 06/11/2020 , 03/16/2016, 10/03/2003 HEPATITIS A VACCINES Aged Out No long er eligible based on patient's age to complete this topic HIB VACCINES Aged Out No longer eligi ble based on patient's age to complete this topic MENINGOCOCCAL VACCINES (ACWY) Aged Out No longer eligible based on patient's age to complete this topic MENINGOCOCCAL VACCINES (B) Aged Out N o longer eligible based on patient's age to complete this topic Medical Devices Not on file Procedures Procedure Name Priority Date/Time Associated Diagnosis Comments COMPREHENSIVE METABOLIC PANEL Routine 04/05/2024 9:59 AM EDT Vocal cord cancer from Last 3 Months or Most Recently Relevant to Health Maintenance Results * (ABNORMAL) Comprehensive metabolic panel (04/05/2024 9:59 AM EDT) SODIUM 139 133 - 146 mmol/L [facility] POTASSIUM 5.1 3.3 - 5.1 mmol/L [facility] CHLORIDE 102 96 - 108 mmol/L [facility] CO2 29 21 - 35 mmol/L [facility] BUN 30(H) 6 - 19 mg/dL [facility] CREATININE 1.90(H) 0.5 - 1.5 mg/dL [facility] GLUCOSE 69(L) 70 - 99 mg/dL [facility] ALBUMIN 4.1 3.9 - 4.8 g/dL [facility] TOTAL PROTEIN 7.3 6.5 - 8.0 g/dL [facility] CALCIUM 9.7 8.4 - 10.3 mg/dL [facility] ALKALINE PHOSPHATASE 80 39 - 117 U/L [facility] TOTAL BILIRUBIN 0.4 0.0 - 1.2 mg/dL [facility] AST 17 0 - 37 U/L [facility] ALT 12 0 - 40 U/L [facility] GLOBULIN 3.2 1 - 4.8 g/dL [facility] EGFR 37(L) >59 mL/min/1.7 3m2 [facility] Comment:Estimated glomerular filtration rate calculated using the CKD-EPI refit equation. ANION GAP 13 10 - 20 mmol/L [facility] Blood 04/05/2024 9:59 AM EDT 04/05/2024 10:01 AM EDT us Nica Vernon MD, MPH LAB BLOOD ORDERABLES Fin al Result Performing Organization Address City/State/[facility] Co de Phone Number [facility] [address] [place] [address] from Last 3 Months or Most Recently Relevant to Health Maintenance Insurance [facility] AAR MEDICARE REPLACEMENT [place] [address] MEDICARE REPLACEMENT MEDICARE REPLACEMENT MEDICARE REPLACEMENT MEDICARE REPLACEMENT MEDICARE REPLACEMENT Advance Directives For more information, please contact: [phone] (9AM - 5PM [facility], Tuesday-Tuesday) Documents on File Type Date Recorded Patient Banquet Supervisor Expl anation Healthcare Proxy 02/28/2024 healthcare proxy 02/28/2024 Healthcare Agents on File Name Relationship Healthcare Agent Relationshi p Communication Nicol Chahal Daughter .Primary Health Care Agent (Proxy form on file) Care Teams Vehicle Calibration Engineer Relationship Specialty Start Date End Date Farida Tam MD [address] [place] [id number] PCP - General Family Medicine 02/23/24 Yuki Bergman MBBS [email or web address] Medical Oncology 02/22/24 Additional Source Comments The information contained in this document represents components of the legal health record. It is not the complete legal health record.[facility]
--- OUTSIDE RECORDS SUMMARY | 2025-04-17 12:02 | XMS_ITS | Encounter Summary ---
Author Organization [employer] Address [address] [facility] [address] [place] [address] Care Team Providers Care Him Tech Name Role Phone Farida Tam MD Primary Care Provider [phone] Reason for Visit * Reason Onset Date Comments Med Refill 04/06/2024 Encounter Details Date Type Department Care Team ([facility] st Contact Info) Description 04/06/2024 Telephone [facility] MEDICINE [address] [place] [address] Farida Tam MD [address] [place] [address] Med Refill Social History Tobacco Use Types [...] immediate release tablet To be sent to: [facility] - [place], [place] - [address] [facility] documented in this encounter Plan of Treatment Upcoming Encounters Date Type Department Care Team (Late st Contact Info) Description 05/30/2025 9:30 AM EST Clinical Support [facility]S [address] [place] [address] Lilibeth Augustin, NATHALIE [address] [place] [address] documented as of this encounter Visit Diagnoses Not on filedocumented in this encounter Additional Health Concerns Assessment Noted Time PHQ-9 Depression Total Score: 4 03/29/20 23 11:07 AM EDT documented as of this encounter Care Teams Him Tech Relationship Specialty Start Date End Date Farida Tam MD [address] [place] [phone] PCP - General Family Medicine 09/02/15 documented as of this encounter
--- OUTSIDE RECORDS SUMMARY | 2025-04-17 12:02 | XMS_ITS | Encounter Summary ---
Author Organization [employer] Address [address] [facility] [address] [place] [address] Care Team Providers Care Slice Cutting Machine Operator Helper Name Role Phone Farida Tam MD Primary Care Provider [phone] Reason for Visit * Reason Comments Med Refill Encounter Details Date Type Department Care Team ([facility] st Contact Info) Description 12/25/2024 Refill C [facility]S [address] [place], [place] [phone] Farida Tam MD [address] [place], [place] [phone] Back pain, unspecified back location, unspecified back [...] Upcoming Encounters Date Type Department Care Team ([facility] st Contact Info) Description 05/30/2025 9:30 AM EST Clinical Support [facility] CH[facility] MED & PEDS [address] [place] [address] Lilibeth Augustin, NATHALIE [address] [place] [address] documented as of this encounter Visit Diagnoses Diagnosis Back pain, unspecified back location, unspecified back pain laterality, unspecified chronicity documented in this encounter Additional Health Concerns Assessment Noted Time PHQ-9 Depression Total Score: 4 03/29/20 23 11:07 AM EDT documented as of this encounter Care Teams Slice Cutting Machine Operator Helper Relationship Specialty Start Date End Date Farida Tam MD [address] [place] [phone] PCP - General Family Medicine 09/02/15 documented as of this encounter
--- OUTSIDE RECORDS SUMMARY | 2025-04-17 12:02 | XMS_ITS | Encounter Summary ---
Author Organization [employer] Address [address] [facility] [address] [place] [address] Care Team Providers Care Sugar Chipper Machine Operator Name Role Phone Farida Tam MD Primary Care Provider [phone] Encounter Details Date Type Department Care Team (Late st Contact Info) Description 08/28/2024 Orders Only [facility] CHC MED & PEDS [address] [place], [place] [phone] Niurka Berrios [place] Social History Tobacco Use Types Packs/Day Years [...] Description 05/30/2025 9:30 AM EST Clinical Support [facility] MED & PEDS [address] [place] [address] Lilibeth Augustin, NATHALIE [address] [place] [address] documented as of this encounter Visit Diagnoses Not on filedocumented in this encounter Additional Health Concerns Assessment Noted Time PHQ-9 Depression Total Score: 4 03/29/20 23 11:07 AM EDT documented as of this encounter Care Teams Sugar Chipper Machine Operator Relationship Specialty Start Date End Date Farida Tam MD [address] [place] [address] PCP - General Family Medicine 09/02/15 documented as of this encounter
--- OUTSIDE RECORDS SUMMARY | 2025-04-17 12:02 | XMS_ITS | Clinical Summary ---
Author Organization [employer] Address [address] [facility] [address] [place] [address] Care Team Providers Care Sales And Marketing Associate Name Role Phone Farida Tam MD Primary Care Provider [phone] Allergies Active Allergy Reactions Criticality Noted Date Comments Amlodipine Swelling 10/03/2023 Aspirin High 09/02/2015 Other reaction(s): Hives / Skin Rash Other reaction(s): Hives / Skin Rash Other reaction(s): Hives / Skin Rash Aspirin Effervescent 09/22/2011 Other Reaction(s): Other (see comments) Upset stomach Medications naloxone (Narcan) 4 mg/0.1 mL nasal spray [...] as directed 30 mL 12 11/10/19 24 Active Patiromer Sorbitex Calcium 8.4 g packIndication s:Hyperkalemia 8.4 g once daily 7 each 01/17/20 24 Active colchicine 0.6 MG tabletIndicati ons:Gout, unspecified cause, unspecified chronicity, unspecified site TAKE ONE TABLET EVERY MORNING (FOR GOUT) 30 tablet 11 08/07/19 25 Active cholecalcifero l (Vitamin D-3) 25 MCG tablet TAKE ONE TABLET EVERY MORNING 90 tablet 1 05/12/20 25 Active cetirizine (ZyrTEC) 10 MG tablet TAKE ONE TABLET EVERY MORNING 30 tablet 5 02/23/20 25 Active oxyCODONE (Roxicodone) 10 MG immediate release tabletIndicati ons:Back pain, unspecified back location, unspecified back pain laterality, unspecified chronicity Take 1 tablet (10 mg) by mouth 3 times daily for 28 days. 84 tablet 03/28/20 25 025 Active oxyCODONE (Roxicodone) 5 MG immediate release tabletIndicati ons:Back pain, unspecified back location, unspecified back pain laterality, unspecified chronicity Take 1 tablet (5 mg) by mouth every 6 (six) hours if needed for severe pain for up to 28 days. 112 tablet 02/20/20 25 025 Discontinued(R eorder (will not trigger notification to Pharmacy)) oxyCODONE (Roxicodone) 5 MG immediate release tabletIndicati ons:Back pain, unspecified back location, unspecified back pain laterality, unspecified chronicity Take 1 tablet (5 mg) by mouth every 6 (six) hours if needed for severe pain for up to 28 days. 112 tablet 03/20/20 25 025 Discontinued(R eorder (will not trigger notification to Pharmacy)) Active Problems Problem Noted Date Diagnosed Date Long-term current use of opiate analgesic 2024 Malignant neoplasm of left vocal cord 04/10/2024 [...] Encounters Date Type Department Care Team Description 04/05/2025 Telephone [facility] MED & PEDS [address] [place] [address] Farida Tam MD Chart Prep 03/28/2025 10:45 AM EDT Telemedicine [facility] MED [facility]ED[facility] [address] [place] [address] Farida Tam MD Back pain, unspecified back location, unspecified back pain laterality, unspecified chronicity 03/28/2025 Travel 03/20/2025 9:30 AM EDT Clinical Support [facility] MED & PEDS [address] [place] [address] Lilibeth Augustin RN Back pain, unspecified back location, unspecified back pain laterality, unspecified chronicity 03/20/2025 Orders Only [facility] PED[facility] [address] [place] [address] Farida Tam MD Back pain, unspecified back location, unspecified back pain laterality, unspecified chronicity 03/20/2025 Travel 03/18/2025 Telephone [facility]ED[facility] [address] [place] [address] Farida Tam MD Medication Question 02/22/2025 Refill [facility] [address] [place] [address] Farida Tam MD 02/18/2025 Refill [facility] [address] [place] [address] Lilibeth Augustin RN Back pain, unspecified back location, unspecified back pain laterality, unspecified chronicity 02/18/2025 Telephone [facility] PEDS [address] [place] [address] Farida Tam MD Med Refill 01/21/2025 Refill [facility] MED & PEDS [address] [place] [address] Lilibeth Augustin RN Back pain, unspecified back location, unspecified back pain laterality, unspecified chronicity 01/21/2025 Telephone [facility] MEDICINE [address] [place] [address] Farida Tam MD Med Refill from Last 3 Months Immunizations Immunization Administration Dates Next Due Influenza High-dose Quadriva [...] 81 04/10/2024 11:25 AM EDT Temperature 36.2 C (97.2 F) 04/10/2024 11:25 AM EDT Respiratory Rate 20 04/10/2024 11:25 AM EDT Oxygen Saturation 99% 04/10/2024 11:25 AM EDT Inhaled Oxygen Concentration - - Weight 64 kg (141 lb) 04/10/2024 11:25 AM EDT Height 167.6 cm (5' 6 ) 04/10/2024 11:25 AM EDT Body Mass Index 22.76 04/10/2024 11:25 AM EDT Plan of Treatment Upcoming Encounters Date Type Department Care Team ([facility] st Contact Info) Description 05/30/2025 9:30 AM EST Clinical Support [facility] MED & PEDS [address] [place] [address] Lilibeth Augustin, RN [address] [place] [address] Health Maintenance Due Date Last Done Comments [...] 12/20/2018, 1 08/21/2017, 12/13/2017, Additional history exists Depression Screening 03/29/2024 03/29/2023, 03/29/20 23 Dental X-Ray: Bitewings 02/24/2025 02/24/20 24, 06/21/2018, 09/09/2016 COVID-19 Vaccine ( season) 2025 05/06/2022, 05/06/2022, 06/16/2021, Additional history exists Influenza Vaccine (#1) 2025 , 05/06/2022, 05/06/2022, Additional history exists SDOH Screening 04/10/2025 04/10/2024 Tobacco Screening 04/10/2025 04/10/2024 Dental X-Ray: Full Mouth 02/24/2027 024, 02/24/2024, 09/09/2016 Lipid Panel 04/05/2028 04/05/2023, 04/14/2022 DTaP/Tdap/Td Vaccines (5 - Td or Tdap) 06/11/2030 06/11/2020, 03/16/2016, 07/23/2010, Additional history exists Colonoscopy 06/04/2032 06/04/2022 Colorectal Cancer Screening 06/04/2032 Zoster Vaccines Completed 09/04/2020, 08/25, 09/21/2019, Additional history exists Pneumococcal Vaccine: 50+ Years Completed 02/06/2023, 09/04/2020, 01/02/2019 HIB Vaccines Aged Out No longer eligi ble based on patient's age to complete this topic HPV Vaccines Aged Out No longer eligi ble based on patient's age to complete this topic IPV Vaccines Aged Out No longer eligi ble based on patient's age to complete this topic Meningococcal B Vaccine Aged Out No l onger eligible based on patient's age to complete [...] Comments POCT PATRICK-14 URINE DRUG SCREEN Routine 03/20/2025 9:47 AM EDT Back pain, unspecified back location, unspecified back pain laterality, unspecified chronicity INTRAORAL - COMPLETE SERIES OF RADIOGRAPHIC IMAGES Routine 02/24/2024 1:00 PM EDT LIPID PANEL, STANDARD Routine 04/05/2023 9:54 AM EDT Benign essential hypertension HM COLONOSCOPY Routine 06/04/2022 PROPHYLAXIS - ADULT Routine 12/20/2018 1 2:00 AM EDT PERIODIC ORAL EVALUATION - ESTABLISHED PATIENT Routine 12/20/2018 12:00 AM EDT from Last 3 Months or Most Recently Relevant to Health Maintenance Results * (ABNORMAL) POCT PATRICK-14 Urine Drug Screen (03/20/2025 9:47 AM EDT) THC Positive(A) Negative Cocaine Screen, Urine Negative Negative Opiate Screen, Urine Negative Negative Methamphetamine Screen Urine Negative Negative Amphetamine Screen, Urine Negative Negative Benzodiazepines Screen, Urine Negative Negative Barbiturate Screen, Urine Negative Negative Methadone Screen, Urine Negative Negative Buprenophine Screen, Urine Negative Negative TCA, Urine Negative Negative MDMA Urine Negative Negative ng/mL Oxycodone Screen, Urine Positive(A) Negative Phencyclidine (PCP), Urine Negative Negative Propoxyphene, Urine Negative Negative Fentanyl, Urine Negative Negative Urine Urine specimen obtained by clean catch procedure / Unknown 03/20/2025 9:47 AM EDT Narrative Lilibeth Augustin RN - 03/20/2025 9:47 AM EDT .UTOX cup Lot#[id number] Exp. 04/30/26 Internal Pass Control Farida Tam MD POINT OF CARE TEST ENTER/EDIT OR DERABLES Final Result * (ABNORMAL) Lipid Panel, Standard (04/05/2023 9:54 AM EDT) Triglycerides 51 <150 mg/dL [facility] Comment:Desirable Triglyceri de: less than 150 mg/dLBorderline High Triglyceride 150-199 mg/dLHigh Triglyceride: 200-499 mg/dLVery High Triglyceride: greater than or equal to 5OO mg/dL Cholesterol 213(H) <200 mg/dL [facility] Comment:Desirable Cholestero l: less than 200 mg/dLBorderline High Cholesterol: 200-239 mg/dLHigh Cholesterol: greater than 239 mg/dL LDL Cholesterol Calculated 126(H) <100 mg/dL [facility] Comment:Desirable LDL: less than 100 mg/dLNear Optimal/Above Optimal LDL: 110- 129 mg/dLBorderline High LDL: 130-159 mg/dLHigh LDL: 160-189 mg/dLVery High LDL: greater than or equal to 190 mg/dL HDL Cholesterol 77 >40 mg/dL [facility] Comment:Desirable HDL: great er than 40 mg/dL Note: This HDL assay may give artificially low results in patients with liver disease. Blood Venous blood specimen / Unknown 04/05/2023 9:54 AM EDT 04/05/2023 2:30 PM EDT Farida Tam MD LAB BLOOD ORDERABLES Final Resul t [facility] [address] [place] [address] [phone] * Colonoscopy (06/04/2022) Colonoscopy Normal Normal us Historical Provider MD HEALTH MAINTENANCE Final Result from Last 3 Months or Most Recently Relevant to Health Maintenance Insurance [facility] MEDICARE ADVANTAGE [place]MO [place] ST[place] [facility] Care Teams Sales And Marketing Associate Relationship Specialty Start Date End Date Farida Tam MD [address] [place] [id number] PCP - General Family Medicine 09/02/15
--- OUTSIDE RECORDS SUMMARY | 2025-04-17 12:02 | XMS_ITS | Patient Health Record ---
Author Organization [facility] Address [address] [place] [id number] Care Team Providers Care Environmental Health Officer Name Role Phone PARISAJESSICAKEIKO Primary Care Provider Joey Cleaning Jr Unavailable Allergies No Known Allergies Reason For Referral No Information Medications Medication SIG (Take, Route, Frequency, Duration) Notes [...] one day for 30 days 05/12/2022 Active Immunizations Vaccine Route Administration Date Status Comme nts Influenza Unknown 05/05/2022 Administered Social History Tobacco Use: Social History Observation Description Date Details (start date - stop date) Former Smoker NA - NA Tobacco Use/Smoking Question Answer Notes Patient is a former smoker Alcohol Screen Question Answer Notes Did you have a drink containing alcohol in the p ast year? No Points 0 Interpretation Negative Problems Problem Type SNOMED Code ICD Code Onset Dates Problem Status W/U Status Risk Notes Problem [id number] Colon cancer screening (Z12.11) Active confirmed Plan Of Treatment Future Test Test Name Order Date COLONOSCOPY 05/12/2022 Insurance Providers Payer Name Payer Address Payer Phone Subscriber Number Group Number Insured Name Patient Relationship to Insured Coverage Start Date Coverage End Date [employer] MEDI COMPLETE (REFERRAL REQUIRED) [address] [address] [place] [address] [phone] [id number] FEI LYNCH Self - patient is the insured Medical (General) History Medical History History ICD Code Hypertension Gout Sciatica Arthritis Chronic kidney disease Pulmonary embolism Surgical History Surgery Date(Month/Year) Right middle lobectomy for lung cancer right inguinal hernia repair Right nephrectomy.
--- OUTSIDE RECORDS SUMMARY | 2025-04-17 12:02 | XMS_ITS | Encounter Summary ---
Author Organization [employer] Address [address] [facility] 7t [place] [address] Care Team Providers Care Process Engineering Manager Name Role Phone Farida Tam MD Primary Care Provider [phone] Reason for Visit * Reason Onset Date Comments Med Refill 12/21/2024 Encounter Details Date Type Department Care Team ([facility] st Contact Info) Description 12/21/2024 Telephone [facility] MEDICINE [address] [place] [address] Farida Tam MD 505 [place] [address] Med Refill Social History Tobacco Use Types [...] * Telephone Encounter - Swetha Cook - 12/21/2024 9:31 AM EDT TC from pt requesting medication refill. Medications needing refill : oxyCODONE (Roxicodone) 5 MG immediate release tablet To be sent to: [facility] - [place], [place] - [address] [place] [address] documented in this encounter Plan of Treatment Upcoming Encounters Date Type Department Care Team ([facility] st Contact Info) Description 05/30/2025 9:30 AM EST Clinical Support [facility] MED & PEDS 505 [place] [address] Lilibeth Augustin, RN 505 [place] [address] documented as of this encounter Visit Diagnoses Not on filedocumented in this encounter Additional Health Concerns Assessment Noted Time PHQ-9 Depression Total Score: 4 03/29/20 23 11:07 AM EDT documented as of this encounter Care Teams Process Engineering Manager Relationship Specialty Start Date End Date Farida Tam MD [address] [place] [address] PCP - General Family Medicine 09/02/15 documented as of this encounter
--- OUTSIDE RECORDS SUMMARY | 2025-04-17 12:02 | XMS_ITS | Encounter Summary ---
Author Organization [employer] Address [address] [place] [address] 7t [place] [address] Care Team Providers Care Automobile Rental Clerk Name Role Phone Farida Tam MD Primary Care Provider [phone] Encounter Details Date Type Department Care Team (Late st Contact Info) Description 02/01/2023 Orders Only [facility] MED & PEDS [address] [place] [address] Farida Tam MD 505 [place] [address] Social History Tobacco Use Types Packs/Day Years [...] 05/30/2025 9:30 AM EST Clinical Support [facility] MED & PEDS [address] [place] [address] Lilibeth Augustin RN 505 [place], [place] [phone] documented as of this encounter Visit Diagnoses Not on filedocumented in this encounter Care Teams Automobile Rental Clerk Relationship Specialty Start Date End Date Farida Tam MD [address] [place] [address] PCP - General Family Medicine 09/02/15 documented as of this encounter
--- OUTSIDE RECORDS SUMMARY | 2025-04-17 12:02 | XMS_ITS | Encounter Summary ---
Author Organization [employer] Address [address] [facility] 7t [place] [address] Care Team Providers Care Logging Tractor Operator Swamp Name Role Phone Farida Tam MD Primary Care Provider [phone] Encounter Details Date Type Department Care Team ([facility] st Contact Info) Description 12/28/[address] [facility] MED & PEDS [address] [place], [place] [phone] Farida Tam MD 505 [place], [place] [phone] Social History Tobacco Use Types Packs/Day Years [...] this CT scan. Spouse also stated that [facility] won't take their insurance. Conversation on 11/13 mentions [facility] not taking pt's insurance for imaging. Advised [...] Description 05/30/2025 9:30 AM EST Clinical Support [facility] MED & PEDS [address] [place] [address] Lilibeth Augustin, RN [address] [place] [address] documented as of this encounter Visit Diagnoses Not on filedocumented in this encounter Additional Health Concerns Assessment Noted Time PHQ-9 Depression Total Score: 4 03/29/20 23 11:07 AM EDT documented as of this encounter Care Teams Logging Tractor Operator Swamp Relationship Specialty Start Date End Date Farida Tam MD [address] [place] [address] PCP - General Family Medicine 09/02/15 documented as of this encounter
--- OUTSIDE RECORDS SUMMARY | 2025-04-17 12:02 | XMS_ITS | Encounter Summary ---
Author Organization [employer] Address [address] [facility] 7t [place] [address] Care Team Providers Care Director Of Vital Statistics Name Role Phone Farida Tam MD Primary Care Provider [phone] Reason for Visit * Reason Onset Date Comments Med Refill 02/02/2024 Encounter Details Date Type Department Care Team ([facility] st Contact Info) Description 02/02/2024 Telephone [facility] MEDICINE 230 [place] [address] Farida Tam MD [address] [place] [address] Med Refill Social History Tobacco Use Types [...] immediate release tablet To be sent to: [facility] - [place], [place] - [address] [place] [address] documented in this encounter Plan of Treatment Upcoming Encounters Date Type Department Care Team ([facility] st Contact Info) Description 05/30/2025 9:30 AM EST Clinical Support [facility] CH[facility] MED & PEDS 505 [place] [address] Lilibeth Augustin, RN 505 [place] [address] documented as of this encounter Visit Diagnoses Not on filedocumented in this encounter Additional Health Concerns Assessment Noted Time PHQ-9 Depression Total Score: 4 03/29/20 23 11:07 AM EDT documented as of this encounter Care Teams Director Of Vital Statistics Relationship Specialty Start Date End Date Farida Tam MD [address] [place] [address] PCP - General Family Medicine 09/02/15 documented as of this encounter
--- OUTSIDE RECORDS SUMMARY | 2025-04-17 12:02 | XMS_ITS | Encounter Summary ---
Author Organization [employer] Address [address] [facility] 7t [place] [address] Care Team Providers Care Typewriter Operator Automatic Name Role Phone Farida Tam MD Primary Care Provider [phone] Reason for Visit * Reason Onset Date Comments Med Refill 05/20/2023 Encounter Details Date Type Department Care Team ([facility] st Contact Info) Description 05/20/2023 Telephone [facility] MEDICINE 230 [place] [address] Farida Tam MD [address] [place] [address] Med Refill Social History Tobacco Use Types [...] Description 05/30/2025 9:30 AM EST Clinical Support [facility] MED & PEDS 505 [place] [address] Lilibeth Augustin, RN 505 [place] [address] documented as of this encounter Visit Diagnoses Not on filedocumented in this encounter Additional Health Concerns Assessment Noted Time PHQ-9 Depression Total Score: 4 03/29/20 23 11:07 AM EDT documented as of this encounter Care Teams Typewriter Operator Automatic Relationship Specialty Start Date End Date Farida Tam MD 230 [place] [address] PCP - General Family Medicine 09/02/15 documented as of this encounter
--- OUTSIDE RECORDS SUMMARY | 2025-04-17 12:02 | XMS_ITS | Encounter Summary ---
Author Organization [employer] Address [address] [facility] 7t [place] [address] Care Team Providers Care Gold Plater Name Role Phone Farida Tam MD Primary Care Provider [phone] Encounter Details Date Type Department Care Team ([facility] st Contact Info) Description 08/28/2024 Orders Only [facility] CH[facility] MED & PEDS [address] [place], [place] [phone] Farida Tam MD 505 [place], [place] [phone] Back pain, unspecified back location, unspecified back [...] Description 05/30/2025 9:30 AM EST Clinical Support [facility] MED & PEDS 505 [place] [address] Lilibeth Augustin, NATHALIE 505 [place] [address] documented as of this encounter Visit Diagnoses Diagnosis Back pain, unspecified back location, unspecified back pain laterality, unspecified chronicity documented in this encounter Additional Health Concerns Assessment Noted Time PHQ-9 Depression Total Score: 4 03/29/20 23 11:07 AM EDT documented as of this encounter Care Teams Gold Plater Relationship Specialty Start Date End Date Farida Tam MD [address] [place] [address] PCP - General Family Medicine 09/02/15 documented as of this encounter
--- OUTSIDE RECORDS SUMMARY | 2025-04-17 12:02 | XMS_ITS | Encounter Summary ---
Author Organization [employer] Address [address] [place] [address] 7t [place] [address] Care Team Providers Care Manager Outreach Name Role Phone Farida Tam MD Primary Care Provider [phone] Reason for Visit * Reason Comments Med Refill Encounter Details Date Type Department Care Team (Late st Contact Info) Description 04/27/2023 Refill [facility] MED & PEDS 505 [place] [address] Farida Tam MD 505 [place] [address] Social History Tobacco Use Types Packs/Day Years [...] Description 05/30/2025 9:30 AM EST Clinical Support [facility] MED & PEDS 505 [place] [address] Lilibeth Augustin, NATHALIE 505 [place] [address] documented as of this encounter Visit Diagnoses Not on filedocumented in this encounter Additional Health Concerns Assessment Noted Time PHQ-9 Depression Total Score: 4 03/29/20 23 11:07 AM EDT documented as of this encounter Care Teams Manager Outreach Relationship Specialty Start Date End Date Farida Tam MD 230 [place] [address] PCP - General Family Medicine 09/02/15 documented as of this encounter
--- OUTSIDE RECORDS SUMMARY | 2025-04-17 12:02 | XMS_ITS | Encounter Summary ---
Author Organization [employer] Address [address] [facility] 7t [place] [address] Care Team Providers Care Research Compliance Specialist Name Role Phone Farida Tam MD Primary Care Provider [phone] Reason for Visit * Reason Onset Date Comments Med Refill 11/23/2024 Encounter Details Date Type Department Care Team ([facility] st Contact Info) Description 11/23/2024 Telephone [facility] MEDICINE 230 [place] [address] Farida Tam MD [address] [place] [address] Med Refill Social History Tobacco Use Types [...] encounter Miscellaneous Notes * Telephone Encounter - Brooke Christianson - 11/23/2024 10:27 AM EDT TC from pt requesting medication refill. Medications needing refill : oxyCODONE (Roxicodone) 5 MG immediate release tablet To be sent to: [facility] documented in this encounter Plan of Treatment Upcoming Encounters Date Type Department Care Team (Late st Contact Info) Description 05/30/2025 9:30 AM EST Clinical Support [facility] MED & PEDS 505 [place] [address] Lilibeth Augustin, NATHALIE 505 [place] [address] documented as of this encounter Visit Diagnoses Not on filedocumented in this encounter Additional Health Concerns Assessment Noted Time PHQ-9 Depression Total Score: 4 03/29/20 23 11:07 AM EDT documented as of this encounter Care Teams Research Compliance Specialist Relationship Specialty Start Date End Date Farida Tam MD [address] [place] [address] PCP - General Family Medicine 09/02/15 documented as of this encounter
--- OUTSIDE RECORDS SUMMARY | 2025-04-17 12:02 | XMS_ITS | Encounter Summary ---
Author Organization [employer] Address [address] [facility] 7t [place] [address] Care Team Providers Care Lease Examiner Name Role Phone Farida Tam MD Primary Care Provider [phone] Reason for Visit * Reason Onset Date Comments Results 02/02/2024 Encounter Details Date Type Department Care Team ([facility] st Contact Info) Description 02/02/2024 Telephone [facility] MEDICINE 230 [place] [address] Farida Tam MD [address] [place] [address] Results Social History Tobacco Use Types Packs/Day [...] - 02/02/2024 12:41 PM EDT TC from [facility] requesting Lab results to be faxed regarding upcoming surgery. Type of results: CBC and Basic Metabolic Panel Date when done: 01/16 Facility: [facility] labs documented in this encounter Plan of Treatment Upcoming Encounters Date Type Department Care Team (Late st Contact Info) Description 05/30/2025 9:30 AM EST Clinical Support [facility] CH[facility] MED & PEDS [address] [place] [address] Lilibeth Augustin, NATHALIE 505 [place] [address] documented as of this encounter Visit Diagnoses Not on filedocumented in this encounter Additional Health Concerns Assessment Noted Time PHQ-9 Depression Total Score: 4 03/29/20 23 11:07 AM EDT documented as of this encounter Care Teams Lease Examiner Relationship Specialty Start Date End Date Farida Tam MD 230 [place] [address] PCP - General Family Medicine 09/02/15 documented as of this encounter
--- OUTSIDE RECORDS SUMMARY | 2025-04-17 12:02 | XMS_ITS | Encounter Summary ---
Author Organization [employer] Address [address] [facility] 7t [place] [address] Care Team Providers Care Business Systems Consultant Name Role Phone Farida Tam MD Primary Care Provider [phone] Reason for Visit * Reason Comments Med Refill Encounter Details Date Type Department Care Team ([facility] st Contact Info) Description 07/11/2024 Refill [facility] MED & PEDS 505 [place], [place] [phone] Farida Tam MD 505 [place], [place] [phone] Back pain, unspecified back location, unspecified back [...] Upcoming Encounters Date Type Department Care Team ([facility] st Contact Info) Description 05/30/2025 9:30 AM EST Clinical Support [facility] MED & PEDS 505 [place] [address] Lilibeth Augustin, NATHALIE 505 [place] [address] documented as of this encounter Visit Diagnoses Diagnosis Back pain, unspecified back location, unspecified back pain laterality, unspecified chronicity documented in this encounter Additional Health Concerns Assessment Noted Time PHQ-9 Depression Total Score: 4 03/29/20 23 11:07 AM EDT documented as of this encounter Care Teams Business Systems Consultant Relationship Specialty Start Date End Date Farida Tam MD [address] [place] [address] PCP - General Family Medicine 09/02/15 documented as of this encounter
--- OUTSIDE RECORDS SUMMARY | 2025-04-17 12:02 | XMS_ITS | Encounter Summary ---
Author Organization [employer] Address [address] [facility] 7t [place] [address] Care Team Providers Care News Agent Name Role Phone Farida Tam MD Primary Care Provider [phone] Reason for Visit * Reason Onset Date Comments Med Refill 07/13/2023 Encounter Details Date Type Department Care Team ([facility] st Contact Info) Description 07/13/2023 Telephone [facility] MEDICINE 230 [place] [address] Farida Tam MD [address] [place], [place] [phone] Med Refill Social History Tobacco Use Types [...] 9:30 AM EST Clinical Support [facility] MED & PEDS 505 [place] [address] Lilibeth Augustin, RN 505 [place] [address] documented as of this encounter Visit Diagnoses Not on filedocumented in this encounter Additional Health Concerns Assessment Noted Time PHQ-9 Depression Total Score: 4 03/29/20 23 11:07 AM EDT documented as of this encounter Care Teams News Agent Relationship Specialty Start Date End Date Farida Tam MD 230 [place] [address] PCP - General Family Medicine 09/02/15 documented as of this encounter
--- OUTSIDE RECORDS SUMMARY | 2025-04-17 12:02 | XMS_ITS | Encounter Summary ---
Author Organization [employer] Address [address] [place] [address] 7t [place] [address] Care Team Providers Care Plywood Matcher Name Role Phone Farida Tam MD Primary Care Provider [phone] Reason for Visit * Reason Onset Date Comments Med Refill 04/26/2023 Encounter Details Date Type Department Care Team ([facility] st Contact Info) Description 04/26/2023 Telephone [facility] MED & PEDS 505 [place] [address] Farida Tam MD 505 [place] [address] Med Refill Social History Tobacco Use Types [...] 05/30/2025 9:30 AM EST Clinical Support [facility]C MED & PEDS [address] [place] [address] Lilibeth Augustin, RN [address] [place] [address] documented as of this encounter Visit Diagnoses Not on filedocumented in this encounter Additional Health Concerns Assessment Noted Time PHQ-9 Depression Total Score: 4 03/29/20 23 11:07 AM EDT documented as of this encounter Care Teams Plywood Matcher Relationship Specialty Start Date End Date Farida Tam MD [address] [place] [address] PCP - General Family Medicine 09/02/15 documented as of this encounter
--- OUTSIDE RECORDS SUMMARY | 2025-04-17 12:02 | XMS_ITS | Encounter Summary ---
Author Organization [employer] Address [address] [place] [address] 7t [place] [address] Care Team Providers Care Museum Educator Name Role Phone Farida Tam MD Primary Care Provider [phone] Reason for Visit * Reason Onset Date Comments Pre-op Exam 01/05/2024 Encounter Details Date Type Department Care Team ([facility] Contact Info) Description 01/05/2024 Telephone [facility] MED & PEDS 505 [place], [place] [phone] Farida Tam MD 505 [place] [address] Pre-op Exam Social History Tobacco Use Types [...] yes Surgeon's name: duc Serrano Facility name: [facility] Surgeon's office number: [phone] Surgeon's office fax number: [phone] Contact name (person you spoke with): Katina Last office note from surgeon requested: Pre-Op notes, Labs, EKG documented in this encounter Plan of Treatment Upcoming Encounters Date Type Department Care Team (Late st Contact Info) Description 05/30/2025 9:30 AM EST Clinical Support [facility] MED & PEDS 505 [place] [address] Lilibeth Augustin, NATHALIE 505 [place] [address] documented as of this encounter Visit Diagnoses Diagnosis Back pain, unspecified back location, unspecified back pain laterality, unspecified chronicity documented in this encounter Additional Health Concerns Assessment Noted Time PHQ-9 Depression Total Score: 4 03/29/20 23 11:07 AM EDT documented as of this encounter Care Teams Museum Educator Relationship Specialty Start Date End Date Farida Tam MD 230 [place] [address] PCP - General Family Medicine 09/02/15 documented as of this encounter
--- OUTSIDE RECORDS SUMMARY | 2025-04-17 12:02 | XMS_ITS | Encounter Summary ---
Author Organization [employer] Address [address] [facility] 7t [place] [address] Care Team Providers Care Collection Systems Modeler Name Role Phone Farida Tam MD Primary Care Provider [phone] Reason for Visit * Reason Onset Date Comments Medication Question 03/18/2025 Encounter Details Date Type Department Care Team ([facility] st Contact Info) Description 03/18/2025 Telephone [facility] MED & PEDS 505 [place], [place] [phone] Farida Tam MD 505 [place] [address] Medication Question Social History Tobacco Use Types [...] encounter Miscellaneous Notes * Telephone Encounter - Brianda Mas RN - 03/19/2025 10:45 AM EDT Patient returned call. Offered appointment of 03/28/25 at 10:15 for telehealth appointment. Patientasked to speak with provider sooner as he is in lots of increased pain and current dose is not working anymore. Informed patient that this RN would reach out to provider for advisement. Patient verbally stated understanding. * Telephone Encounter - Brianda Mas RN - 03/19/2025 9:59 AM EDT TC to patient. No answer. Detailed message left for patient to return call with requested appointment time. * Telephone Encounter - Farida Tam MD - 03/19/2025 9:15 AM EDT Schedule tele visit to discuss same * Telephone Encounter - Garrett Butterfield - 03/18/2025 9:01 AM EDT Tc from pt requesting a dosage change to a higher dosage or an alternative for Oxycodone Contact pt at [phone] documented in this encounter Plan of Treatment Upcoming Encounters Date Type Department Care Team ([facility] st Contact Info) Description 05/30/2025 9:30 AM EST Clinical Support [facility] MED & PEDS 505 [place] [address] Lilibeth Augustin, NATHALIE 505 [place] [address] documented as of this encounter Visit Diagnoses Diagnosis Back pain, unspecified back location, unspecified back pain laterality, unspecified chronicity documented in this encounter Additional Health Concerns Assessment Noted Time PHQ-9 Depression Total Score: 4 03/29/20 23 11:07 AM EDT documented as of this encounter Care Teams Collection Systems Modeler Relationship Specialty Start Date End Date Farida Tam MD [address] [place] [address] PCP - General Family Medicine 09/02/15 documented as of this encounter
--- OUTSIDE RECORDS SUMMARY | 2025-04-17 12:02 | XMS_ITS | Encounter Summary ---
Author Organization [employer] Address [address] [facility] 7t [place] [address] Care Team Providers Care Contract Driver Name Role Phone Farida Tam MD Primary Care Provider [phone] Reason for Visit * Reason Onset Date Comments Med Refill 03/14/2024 Encounter Details Date Type Department Care Team ([facility] st Contact Info) Description 03/14/2024 Telephone [facility] MEDICINE 230 [place] [address] Farida Tam MD [address] [place] [address] Med Refill Social History Tobacco Use Types [...] immediate release tablet To be sent to: [facility] documented in this encounter Plan of Treatment Upcoming Encounters Date Type Department Care Team (Late st Contact Info) Description 05/30/2025 9:30 AM EST Clinical Support [facility] MED & PEDS 505 [place] [address] Lilibeth Augustin, RN 505 [place] [address] documented as of this encounter Visit Diagnoses Not on filedocumented in this encounter Additional Health Concerns Assessment Noted Time PHQ-9 Depression Total Score: 4 03/29/20 23 11:07 AM EDT documented as of this encounter Care Teams Contract Driver Relationship Specialty Start Date End Date Farida Tam MD 230 [place] [address] PCP - General Family Medicine 09/02/15 documented as of this encounter
--- OUTSIDE RECORDS SUMMARY | 2025-04-17 12:02 | XMS_ITS | Encounter Summary ---
Author Organization [email or web address] Address 75 [facility] 7t [place] [address] Care Team Providers Care Subeditor Name Role Phone Farida Tam MD Primary Care Provider [phone] Reason for Visit * Reason Onset Date Comments Medication Question 12/30/2023 Encounter Details Date Type Department Care Team ([facility] st Contact Info) Description 12/30/2023 Telephone [facility] MEDICINE 230 [place] [address] Farida Tam MD [address] [place], [place] [phone] Medication Question Social History Tobacco Use Types [...] on skin pad. Please contact pt at [phone]. documented in this encounter Plan of Treatment Upcoming Encounters Date Type Department Care Team (Late st Contact Info) Description 05/30/2025 9:30 AM EST Clinical Support [facility] MED & PEDS 505 [place] [address] Lilibeth Augustin, RN 505 [place] [address] documented as of this encounter Visit Diagnoses Not on filedocumented in this encounter Additional Health Concerns Assessment Noted Time PHQ-9 Depression Total Score: 4 03/29/20 23 11:07 AM EDT documented as of this encounter Care Teams Subeditor Relationship Specialty Start Date End Date Farida Tam MD [address] [place] [address] PCP - General Family Medicine 09/02/15 documented as of this encounter
--- OUTSIDE RECORDS SUMMARY | 2025-04-17 12:02 | XMS_ITS | Encounter Summary ---
Author Organization [employer] Address 75 [facility] 7t [place] [address] Care Team Providers Care Supervisor Fryer [employer] Name Role Phone Farida Tam MD Primary Care Provider [phone] Reason for Visit * Reason Onset Date Comments Medication Question 08/28/2024 Encounter Details Date Type Department Care Team ([facility] st Contact Info) Description 08/28/2024 Telephone [facility] MEDICINE 230 [place] [address] Farida Tam MD [address] [place], [place] [phone] Medication Question Social History Tobacco Use Types [...] Miscellaneous Notes * Telephone Encounter - Saurabh Liconanandez - 08/28/2024 3:29 PM EST TC from pt requesting a call back regarding med oxyCODONE (Roxicodone) 5 MG immediate release tablet. Pt spouse states would like to Discuss what is going on and why pt did not receive medication. Contact Spouse at [phone] documented in this encounter Plan of Treatment Upcoming Encounters Date Type Department Care Team ([facility] st Contact Info) Description 05/30/2025 9:30 AM EST Clinical Support [facility] MED & PEDS 505 [place] [address] Lilibeth Augustin, NATHALIE 505 [place] [address] documented as of this encounter Visit Diagnoses Not on filedocumented in this encounter Additional Health Concerns Assessment Noted Time PHQ-9 Depression Total Score: 4 03/29/20 23 11:07 AM EDT documented as of this encounter Care Teams Supervisor [employer] Relationship Specialty Start Date End Date Farida Tam MD [address] [place] [address] PCP - General Family Medicine 09/02/15 documented as of this encounter
--- OUTSIDE RECORDS SUMMARY | 2025-04-17 12:02 | XMS_ITS | Encounter Summary ---
Author Organization [employer] Address [address] [place] [address] 7t [place] [address] Care Team Providers Care Pattern Finisher Name Role Phone Farida Tam MD Primary Care Provider [phone] Reason for Visit * Reason Comments Med Refill Encounter Details Date Type Department Care Team ([facility] st Contact Info) Description 01/28/2023 Refill [facility] MED & PEDS 505 [place], [place] [phone] Farida Tam MD 505 [place] [address] Pain Social History Tobacco Use Types Packs/Day [...] 9:30 AM EST Clinical Support [facility] MED & PEDS 505 [place] [address] Lilibeth Augustin, RN 505 [place] [address] documented as of this encounter Visit Diagnoses Diagnosis Pain Generalized pain documented in this encounter Care Teams Pattern Finisher Relationship Specialty Start Date End Date Farida Tam MD [address] [place] [address] PCP - General Family Medicine 09/02/15 documented as of this encounter
--- OUTSIDE RECORDS SUMMARY | 2025-04-17 12:02 | XMS_ITS | Encounter Summary ---
Author Organization [employer] Address 75 [facility] 7t [place] [address] Care Team Providers Care Plastic Welder Name Role Phone Farida Tam MD Primary Care Provider [phone] Reason for Visit * Reason Onset Date Comments Med Refill 02/29/2024 Encounter Details Date Type Department Care Team ([facility] st Contact Info) Description 02/29/2024 Telephone [facility] MEDICINE 230 [place] [address] Farida Tam MD [address] [place] [address] Med Refill Social History Tobacco Use Types [...] immediate release tablet To be sent to: [facility] - [place], [place] - [address] [place] [address] documented in this encounter Plan of Treatment Upcoming Encounters Date Type Department Care Team (Late st Contact Info) Description 05/30/2025 9:30 AM EST Clinical Support [facility] MED & PEDS 505 [place] [address] Lilibeth Augustin, NATHALIE 505 [place] [address] documented as of this encounter Visit Diagnoses Not on filedocumented in this encounter Additional Health Concerns Assessment Noted Time PHQ-9 Depression Total Score: 4 03/29/20 23 11:07 AM EDT documented as of this encounter Care Teams Plastic Welder Relationship Specialty Start Date End Date Farida Tam MD 230 [place] [address] PCP - General Family Medicine 09/02/15 documented as of this encounter
--- OUTSIDE RECORDS SUMMARY | 2025-04-17 12:02 | XMS_ITS | Encounter Summary ---
Author Organization [employer] Address 75 [facility] 7t [place] [address] Care Team Providers Care Mechanism Assembler Name Role Phone Farida Tam MD Primary Care Provider [phone] Reason for Visit * Reason Onset Date Comments Call back request 11/14/2023 Encounter Details Date Type Department Care Team ([facility] st Contact Info) Description 11/14/[address] [facility] MEDICINE 230 [place] [address] Farida Tam MD [address] [place], [place] [phone] Call back request Social History Tobacco Use [...] has appt on 12/15 with radiologist at [address] [place] [address]. Pt will have an an upcoming appt with Dr. Pastrana on 11/23. Spouse verbalizes understanding and agreement with plan. * Telephone Encounter - Andrews Ibrahim - 11/14/2023 12:37 PM EDT Tc from spouse requesting call back regarding scheduling no further information/details provided. Please contact spouse at [phone]. documented in this encounter Plan of Treatment Upcoming Encounters Date Type Department Care Team ([facility] st Contact Info) Description 05/30/2025 9:30 AM EST Clinical Support [facility] MED & PEDS 505 [place] [address] Lilibeth Augustin, NATHALIE 505 [place] [address] documented as of this encounter Visit Diagnoses Not on filedocumented in this encounter Additional Health Concerns Assessment Noted Time PHQ-9 Depression Total Score: 4 03/29/20 23 11:07 AM EDT documented as of this encounter Care Teams Mechanism Assembler Relationship Specialty Start Date End Date Farida Tam MD [address] [place] [address] PCP - General Family Medicine 09/02/15 documented as of this encounter
--- OUTSIDE RECORDS SUMMARY | 2025-04-17 12:02 | XMS_ITS | Encounter Summary ---
Author Organization [employer] Address 75 [facility] 7t [place] [address] Care Team Providers Care Railroad Signal Operator Name Role Phone Farida Tam MD Primary Care Provider [phone] Encounter Details Date Type Department Care Team (Late st Contact Info) Description 01/06/2024 Orders Only [facility] MED & PEDS 505 [place], [place] [phone] Nisa Haji MD 505 [place] [address] Back pain, unspecified back location, unspecified back [...] 05/30/2025 9:30 AM EST Clinical Support [facility] MED & PEDS 505 [place] [address] Lilibeth Augustin, NATHALIE 505 [place] [address] documented as of this encounter Visit Diagnoses Diagnosis Back pain, unspecified back location, unspecified back pain laterality, unspecified chronicity documented in this encounter Additional Health Concerns Assessment Noted Time PHQ-9 Depression Total Score: 4 03/29/20 23 11:07 AM EDT documented as of this encounter Care Teams Railroad Signal Operator Relationship Specialty Start Date End Date Farida Tam MD [address] [place] [address] PCP - General Family Medicine 09/02/15 documented as of this encounter
--- OUTSIDE RECORDS SUMMARY | 2025-04-17 12:02 | XMS_ITS | Encounter Summary ---
Author Organization [employer] Address 75 [facility] 7t [place] [address] Care Team Providers Care Program Evaluator Name Role Phone Farida Tam MD Primary Care Provider [phone] Reason for Visit * Reason Comments Med Refill Encounter Details Date Type Department Care Team ([facility] st Contact Info) Description 04/09/2024 Refill [facility] MED & PEDS 505 [place], [place] [phone] Farida Tam MD 505 [place], [place] [phone] Back pain, unspecified back location, unspecified back [...] Upcoming Encounters Date Type Department Care Team ([facility] st Contact Info) Description 05/30/2025 9:30 AM EST Clinical Support [facility] MED & PEDS 505 [place] [address] Lilibeth Augustin, NATHALIE 505 [place] [address] documented as of this encounter Visit Diagnoses Diagnosis Back pain, unspecified back location, unspecified back pain laterality, unspecified chronicity documented in this encounter Additional Health Concerns Assessment Noted Time PHQ-9 Depression Total Score: 4 03/29/20 23 11:07 AM EDT documented as of this encounter Care Teams Program Evaluator Relationship Specialty Start Date End Date Farida Tam MD [address] [place] [address] PCP - General Family Medicine 09/02/15 documented as of this encounter
--- OUTSIDE RECORDS SUMMARY | 2025-04-17 12:02 | XMS_ITS | Encounter Summary ---
Author Organization [employer] Address [address] [facility] 7t [place] [address] Care Team Providers Care Air Pollution Control Engineer Name Role Phone Farida Tam MD Primary Care Provider [phone] Reason for Visit * Reason Onset Date Comments Medication Question 09/26/2024 Encounter Details Date Type Department Care Team ([facility] st Contact Info) Description 09/26/2024 Telephone [facility] MEDICINE 230 [place] [address] Farida Tam MD [address] [place], [place] [phone] Medication Question Social History Tobacco Use Types [...] encounter Miscellaneous Notes * Telephone Encounter - Zbigniew Purcell - 09/26/2024 10:08 AM EST Tc from pt requesting for a call back from erin regarding pt oxycodone. documented in this encounter Plan of Treatment Upcoming Encounters Date Type Department Care Team (Late st Contact Info) Description 05/30/2025 9:30 AM EST Clinical Support [facility] MED & PEDS 505 [place] [address] Erin Augustin, NATHALIE 505 [place] [address] documented as of this encounter Visit Diagnoses Not on filedocumented in this encounter Additional Health Concerns Assessment Noted Time PHQ-9 Depression Total Score: 4 03/29/20 23 11:07 AM EDT documented as of this encounter Care Teams Air Pollution Control Engineer Relationship Specialty Start Date End Date Farida Tam MD 230 [place] [address] PCP - General Family Medicine 09/02/15 documented as of this encounter
--- OUTSIDE RECORDS SUMMARY | 2025-04-17 12:02 | XMS_ITS | Encounter Summary ---
Author Organization [employer] Address 75 [facility] 7t [place] [address] Care Team Providers Care Floral Design Teacher Name Role Phone Farida Tam MD Primary Care Provider [phone] Encounter Details Date Type Department Care Team (Late st Contact Info) Description 02/17/2024 Orders Only [facility] MED & PEDS [address] [place], [place] [phone] ProviderLissa MD Social History Tobacco Use Types [...] Description 05/30/2025 9:30 AM EST Clinical Support [facility] MED & PEDS 505 [place] [address] Lilibeth Augustin, NATHALIE 505 [place] [address] documented as of this encounter Procedures Procedure [...] documented as of this encounter Care Teams Floral Design Teacher Relationship Specialty Start Date End Date Farida Tam MD [address] [place] [address] PCP - General Family Medicine 09/02/15 documented as of this encounter
[2025-04-17 14:46] LABS: Hematocrit 32.9 % (42.0-52.0); Hemoglobin 10.8 g/dl (14.0-18.0); Mean Corpuscular HGB Conc 32.8 g/dl (31.0-36.0); Mean Corpuscular Hemoglobin 35.0 pg (27.0-33.0); Mean Corpuscular Volume 106.5 fL (80.0-98.0); NRBC Abs Auto 0.000 X10*3/uL (0.0-0.012); NRBC Pct Auto 0.0 /100WBC (0.0-0.2); Platelet Count 119 X10*3/uL (160-400); Red Blood Count 3.09 X10*6/uL (4.60-5.80); White Blood Count 3.9 X10*3/uL (4.8-10.8)
[2025-04-17 15:15] LABS: Parathyroid Hormone Intact 82.1 pg/mL (8.7-77.1)
[2025-04-17 15:25] LABS: Anion Gap 8 (12-20); Blood Urea Nitrogen 31 mg/dL (9-16); Calcium 8.9 mg/dL (8.4-10.2); Carbon Dioxide 31 mmol/L (22-29); Chloride 106 mmol/L (96-108); Estimated Glomerular Filt Rate 33; Ferritin 242 ng/mL (20-250); Iron 88 mcg/dL (45-160); Magnesium 2.1 mg/dL (1.6-2.6); Percent Iron Saturation 45 % (15-50); Potassium 4.5 mmol/L (3.3-5.1); Sodium 140 mmol/L (135-145); Total Iron Binding Capacity 196 mcg/dL (228-428); Unsaturated Iron Binding 108 ug/dL
[2025-04-17 15:37] LABS: Microalbum/Creatinine Ratio Ur 571.3 ug/mg cr (<30); Protein/Creatinine Ratio, Ur 0.85 (<0.2); Total Protein Urine Random 55 mg/dL (<12)
== END 2025-04-17 09:56 | disposition home or self-care (01) ==
LOC: HO.CHCLDS 09:55
PROVIDERS: PCP Student in an Organized Health Care Education/Training Program; Visit Provider Internal Medicine Nephrology
DX: I12.9 Hypertensive chronic kidney disease with stage 1 through stage 4 chronic kidney disease, or unspecified chronic kidney disease (principal); N18.32 Chronic kidney disease, stage 3b; E87.5 Hyperkalemia; D63.1 Anemia in chronic kidney disease; N25.81 Secondary hyperparathyroidism of renal origin
CPT/HCPCS: 36415; 80051; 82043; 82306; 82310; 82565; 82570; 82728; 83540; 83735; 83970; 84156; 84520; 85027

== ENCOUNTER 2025-07-10 10:23 | Outpatient (REF) | payer MEDICARE, SELFPAY ==
--- OUTSIDE RECORDS SUMMARY | 2025-07-10 12:49 | XMS_ITS | Encounter Summary ---
Author Organization [employer] Address 75 [facility] 7t [place] [address] Care Team Providers Care Pocket Machine Operator Name Role Phone Farida Tam MD Primary Care Provider [phone] Carolina Eugene MD Primary Care Provider [phone] Reason for Visit * Reason Comments Med Refill Encounter Details Date Type Department Care Team ([facility] st Contact Info) Description 12/25/2024 Refill [facility] MED & PEDS 505 [place], [place] [phone] Farida Tam MD 505 [place], [place] [phone] Back pain, unspecified back location, unspecified back [...] Care Team (Late st Contact Info) Description 08/28/2025 9:30 AM EST Clinical Support [facility] MED & PEDS 505 [place] [address] Lilibeth Augustin, RN 505 [place] [address] documented as of this encounter Visit Diagnoses Diagnosis Back pain, unspecified back location, unspecified back pain laterality, unspecified chronicity documented in this encounter Additional Health Concerns Assessment Noted Time PHQ-9 Depression Total Score: 4 03/29/20 23 11:07 AM EDT documented as of this encounter Care Teams Pocket Machine Operator Relationship Specialty Start Date End Date Farida Tam MD [address] [place] [address] PCP - General Family Medicine 09/02/15 05/20/25 Carolina Eugene MD 505 [place] [address] PCP - General Family Medicine 05/21/25 documented as of this encounter
--- OUTSIDE RECORDS SUMMARY | 2025-07-10 12:49 | XMS_ITS | Encounter Summary ---
Author Organization [employer] Address 75 [facility] 7t [place] [address] Care Team Providers Care Juvenile Court Judge Name Role Phone Farida Tam MD Primary Care Provider [phone] Carolina Eugene MD Primary Care Provider [phone] Reason for Visit * Reason Onset Date Comments Call back request 11/14/2023 Encounter Details Date Type Department Care Team (Late st Contact Info) Description 11/14/2023 Telephone [facility] MEDICINE 230 [place] [address] Farida Tam MD [address] [place], [place] [phone] Call back request Social History Tobacco Use [...] has appt on 12/15 with radiologist at [address] [place] [address]. Pt will have an an upcoming appt with Dr. Pastrana on 11/23. Spouse verbalizes understanding and agreement with plan. * Telephone Encounter - Andrews Ibrahim - 11/14/2023 12:37 PM EDT Tc from spouse requesting call back regarding scheduling no further information/details provided. Please contact spouse at [phone]. documented in this encounter Plan of Treatment Upcoming Encounters Date Type Department Care Team ([facility] st Contact Info) Description 08/28/2025 9:30 AM EST Clinical Support [facility] MED & PEDS 505 [place] [address] Lilibeth Augustin, NATHALIE 505 [place] [address] documented as of this encounter Visit Diagnoses Not on filedocumented in this encounter Additional Health Concerns Assessment Noted Time PHQ-9 Depression Total Score: 4 03/29/20 23 11:07 AM EDT documented as of this encounter Care Teams Juvenile Court Judge Relationship Specialty Start Date End Date Farida Tam MD 230 [place] [address] PCP - General Family Medicine 09/02/15 05/20/25 Carolina Eugene MD [address] [place] [address] PCP - General Family Medicine 05/21/25 documented as of this encounter
--- OUTSIDE RECORDS SUMMARY | 2025-07-10 12:49 | XMS_ITS | Encounter Summary ---
Author Organization [employer] Address 75 [facility] 7t [place] [address] Care Team Providers Care Menagerie Caretaker Name Role Phone Farida Tam MD Primary Care Provider [phone] Carolina Eugene MD Primary Care Provider [phone] Encounter Details Date Type Department Care Team ([facility] st Contact Info) Description 11/14/2023 Telephone [facility] MED & PEDS 505 [place], [place] [phone] Farida Tam MD 505 [place] [address] Social History Tobacco Use Types Packs/Day Years [...] to be scheduled. Message sent to pt [employer] message informing this. * Telephone Encounter - Caroline Salmon - 11/14/2023 10:52 AM EDT Tc from pt spouse calling to inform pt went to get x ray done at [facility] but was told they do not accept pt issuance . Please call pt to clarify . documented in this encounter Plan of Treatment Upcoming Encounters Date Type Department Care Team ([facility] st Contact Info) Description 08/28/2025 9:30 AM EST Clinical Support [facility] MED & PEDS 505 [place] [address] Lilibeth Augustin RN 505 [place] [address] documented as of this encounter Visit Diagnoses Not on filedocumented in this encounter Additional Health Concerns Assessment Noted Time PHQ-9 Depression Total Score: 4 03/29/20 23 11:07 AM EDT documented as of this encounter Care Teams Menagerie Caretaker Relationship Specialty Start Date End Date Farida Tam MD [address] [place] [address] PCP - General Family Medicine 09/02/15 05/20/25 Carolina Eugene MD [address] [place] [address] PCP - General Family Medicine 05/21/25 documented as of this encounter
--- OUTSIDE RECORDS SUMMARY | 2025-07-10 12:49 | XMS_ITS | Encounter Summary ---
Author Organization [employer] Address 75 [facility] 7t [place] [address] Care Team Providers Care Fisheries Director Name Role Phone Farida Tam MD Primary Care Provider [phone] Carolina Eugene MD Primary Care Provider [phone] Encounter Details Date Type Department Care Team ([facility] st Contact Info) Description 11/16/2023 Telephone [facility] MED & PEDS 505 [place], [place] [phone] Farida Tam MD 505 [place] [address] Social History Tobacco Use Types Packs/Day Years [...] 12/20. Any questions, contact pt spouse at [phone] documented in this encounter Plan of Treatment Upcoming Encounters Date Type Department Care Team (Late st Contact Info) Description 08/28/2025 9:30 AM EST Clinical Support [facility] MED & PEDS 505 [place] [address] Lilibeth Augustin, NATHALIE 505 [place] [address] documented as of this encounter Visit Diagnoses Not on filedocumented in this encounter Additional Health Concerns Assessment Noted Time PHQ-9 Depression Total Score: 4 03/29/20 23 11:07 AM EDT documented as of this encounter Care Teams Fisheries Director Relationship Specialty Start Date End Date Farida Tam MD 230 [place] [address] PCP - General Family Medicine 09/02/15 05/20/25 Carolina Eugene MD [address] [place] [address] PCP - General Family Medicine 05/21/25 documented as of this encounter
--- OUTSIDE RECORDS SUMMARY | 2025-07-10 12:49 | XMS_ITS | Encounter Summary ---
Author Organization [employer] Address 75 [facility] 7t [place] [address] Care Team Providers Care Health Communications Specialist Name Role Phone Farida Tam MD Primary Care Provider [phone] Carolina Eugene MD Primary Care Provider [phone] Reason for Visit * Reason Onset Date Comments Medication Question 12/30/2023 Encounter Details Date Type Department Care Team (Late st Contact Info) Description 12/30/2023 Telephone [facility] MEDICINE 230 [place] [address] Farida Tam MD [address] [place], [place] [phone] Medication Question Social History Tobacco Use Types [...] on skin pad. Please contact pt at [phone]. documented in this encounter Plan of Treatment Upcoming Encounters Date Type Department Care Team ([facility] st Contact Info) Description 08/28/2025 9:30 AM EST Clinical Support [facility] MED & PEDS 505 [place] [address] Lilibeth Augustin, NATHALIE 505 [place] [address] documented as of this encounter Visit Diagnoses Not on filedocumented in this encounter Additional Health Concerns Assessment Noted Time PHQ-9 Depression Total Score: 4 03/29/20 23 11:07 AM EDT documented as of this encounter Care Teams Health Communications Specialist Relationship Specialty Start Date End Date Farida Tam MD [address] [place] [address] PCP - General Family Medicine 09/02/15 05/20/25 Carolina Eugene MD 505 [place] [address] PCP - General Family Medicine 05/21/25 documented as of this encounter
--- OUTSIDE RECORDS SUMMARY | 2025-07-10 12:49 | XMS_ITS | Encounter Summary ---
Author Organization [employer] Address 75 [facility] 7t [place] [address] Care Team Providers Care Inpatient Pharmacist Name Role Phone Carolina Eugene MD Primary Care Provider [phone] Reason for Visit * Reason Onset Date Comments Med Refill 06/24/2025 Encounter Details Date Type Department Care Team ([facility] st Contact Info) Description 06/24/2025 Telephone [facility] MEDICINE 230 [place] [address] Carolina Eugene MD 505 [place] [address] Med Refill Social History Tobacco Use Types [...] * Telephone Encounter - Anuj Jomar - 06/24/2025 8:51 AM EST TC from pt requesting medication refill. Medications needing refill : oxyCODONE (Roxicodone) 10 MG immediate release tablet [facility] sent to: [facility] documented in this encounter Plan of Treatment Upcoming Encounters Date Type Department Care Team (Late st Contact Info) Description 08/28/2025 9:30 AM EST Clinical Support [facility] MED & PEDS 505 [place] [address] Lilibeth Augustin RN 505 [place] [address] documented as of this encounter Visit Diagnoses Not on filedocumented in this encounter Additional Health Concerns Assessment Noted Time PHQ-9 Depression Total Score: 4 03/29/20 23 11:07 AM EDT documented as of this encounter Care Teams Inpatient Pharmacist Relationship Specialty Start Date End Date Carolina Eugene MD 505 [place] [address] PCP - General Family Medicine 05/21/25 documented as of this encounter
--- OUTSIDE RECORDS SUMMARY | 2025-07-10 12:49 | XMS_ITS | Encounter Summary ---
Author Organization [employer] Address 75 [facility] 7t [place] [address] Care Team Providers Care Wastewater Treatment Supervisor Name Role Phone Farida Tam MD Primary Care Provider [phone] Carolina Eugene MD Primary Care Provider [phone] Encounter Details Date Type Department Care Team ([facility] st Contact Info) Description 01/06/2024 Orders Only [facility] MED & PEDS [address] [place], [place] [phone] Nisa Haji MD 505 [place] [address] Back pain, unspecified back location, unspecified back [...] Description 08/28/2025 9:30 AM EST Clinical Support [facility] MED & PEDS [address] [place] [address] Lilibeth Augustin RN 505 [place] [address] documented as of this encounter Visit Diagnoses Diagnosis Back pain, unspecified back location, unspecified back pain laterality, unspecified chronicity documented in this encounter Additional Health Concerns Assessment Noted Time PHQ-9 Depression Total Score: 4 03/29/20 23 11:07 AM EDT documented as of this encounter Care Teams Wastewater Treatment Supervisor Relationship Specialty Start Date End Date Farida Tam MD [address] [place] [phone] PCP - General Family Medicine 09/02/15 05/20/25 Carolina Eugene MD 505 [place] [address] PCP - General Family Medicine 05/21/25 documented as of this encounter
--- OUTSIDE RECORDS SUMMARY | 2025-07-10 12:49 | XMS_ITS | Encounter Summary ---
Author Organization [employer] Address 75 [facility] 7t [place] [address] Care Team Providers Care Raw Hide Trimmer Name Role Phone Farida Tam MD Primary Care Provider [phone] Carolina Eugene MD Primary Care Provider [phone] Reason for Visit * Reason Onset Date Comments Medication Question 09/26/2024 Encounter Details Date Type Department Care Team ([facility] st Contact Info) Description 09/26/[address] [facility] MEDICINE [address] [place] [address] Farida Tam MD [address] [place], [place] [phone] Medication Question Social History Tobacco Use Types [...] Description 08/28/2025 9:30 AM EST Clinical Support [facility] CHC MED & PEDS 505 [place] [address] Erin Augustin RN 505 [place] [address] documented as of this encounter Visit Diagnoses Not on filedocumented in this encounter Additional Health Concerns Assessment Noted Time PHQ-9 Depression Total Score: 4 03/29/20 23 11:07 AM EDT documented as of this encounter Care Teams Raw Hide Trimmer Relationship Specialty Start Date End Date Farida Tam MD [address] [place] [address] PCP - General Family Medicine 09/02/15 05/20/25 Carolina Eugene MD 505 [place] [address] PCP - General Family Medicine 05/21/25 documented as of this encounter
--- OUTSIDE RECORDS SUMMARY | 2025-07-10 12:49 | XMS_ITS | Encounter Summary ---
Author Organization [employer] Address [address] [facility] 7t [place] [address] Care Team Providers Care Grease Refining Supervisor Name Role Phone Farida Tam MD Primary Care Provider [phone] Carolina Eugene MD Primary Care Provider [phone] Encounter Details Date Type Department Care Team ([facility] st Contact Info) Description 12/28/2023 Telephone [facility] CHC MED & PEDS [address] [place], [place] [phone] Farida Tam MD 505 [place] [address] Social History Tobacco Use Types Packs/Day Years [...] this CT scan. Spouse also stated that [facility] won't take their insurance. Conversation on 11/13 mentions [facility] [place]'s insurance for imaging. Advised [...] Description 08/28/2025 9:30 AM EST Clinical Support [facility] CHC MED & PEDS [address] [place] [address] Lilibeth Augustin, RN 505 [place] [address] documented as of this encounter Visit Diagnoses Not on filedocumented in this encounter Additional Health Concerns Assessment Noted Time PHQ-9 Depression Total Score: 4 03/29/20 23 11:07 AM EDT documented as of this encounter Care Teams Grease Refining Supervisor Relationship Specialty Start Date End Date Farida Tam MD [address] [place] [address] PCP - General Family Medicine 09/02/15 05/20/25 Carolina Eugene MD 505 [place] [address] PCP - General Family Medicine 05/21/25 documented as of this encounter
--- OUTSIDE RECORDS SUMMARY | 2025-07-10 12:49 | XMS_ITS | Clinical Summary ---
Author Organization [employer] Address 75 [facility] 7t [place] [address] Care Team Providers Care Welder Gas Tungsten Arc Name Role Phone Carolina Eugene MD Primary Care Provider [phone] Allergies Active Allergy Reactions Criticality Noted Date Comments Amlodipine Swelling 10/03/2023 Aspirin High 09/02/2015 Other reaction(s): Hives / Skin Rash Other reaction(s): Hives / Skin Rash Other reaction(s): Hives / Skin Rash Aspirin Effervescent 09/22/2011 Other Reaction(s): Other (see comments) Upset stomach Medications hydroCHLOROthi azide (HYDRODiuril) 25 MG tablet Take [...] EVERY MORNING (FOR GOUT) 30 tablet 11 5 10:44 AM EST 08/07/19 25 Active cetirizine (ZyrTEC) 10 MG tablet TAKE ONE TABLET EVERY MORNING 30 tablet 5 02/23/20 25 Active naloxone (Narcan) 4 mg/0.1 mL nasal spray Administer 1 spray (4 mg) into affected nostril(s) if needed for opioid reversal. FOR SUSPECTED OPIOID OVERDOSE. SPRAY 0.1mL IN ONE NOSTRIL. REPEAT IN ALTERNATE NOSTRIL EVERY 2-3 MINUTES IF NEEDED. SEEK MEDICAL ATTENTION IMMEDIATELY EVEN IF PT RESPONDS. 2 each 1 04/25/20 25 Active cholecalcifero l (Vitamin D-3) 25 MCG tablet TAKE ONE TABLET EVERY MORNING 90 tablet 1 05/21/20 25 Active oxyCODONE (Roxicodone) 10 MG immediate release tabletIndicati ons:Back pain, unspecified back location, unspecified back pain laterality, unspecified chronicity Take 1 tablet (10 mg) by mouth 3 times daily for 28 days. 84 tablet 5 2:22 PM EST 06/24/20 25 025 Active oxyCODONE (Roxicodone) 10 MG immediate release tabletIndicati ons:Back pain, unspecified back location, unspecified back pain laterality, unspecified chronicity Take 1 tablet (10 mg) by mouth 3 times daily for 28 days. 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 Colon cancer screening 01/16/2024 Stage 3 chronic kidney disease (CMS/HCC) 021 Solitary pulmonary nodule 09/25/2020 Greater trochanteric pain syndrome 09/25/2020 Benign essential hypertension 07/15/2016 Primary malignant neoplasm of right lung (CMS/HC C) 07/15/2016 Alcohol abuse 11/30/2012 Obesity 07/21/2012 Family history of colonic polyps 06/20/2012 Chronic viral hepatitis C (CMS/HCC) 10/28/2011 Overview (01/16/2024): Positive Rheumatoid factor Patient had gi consult dr nunn 2013 Declined therapy Gout 06/24/2009 Renal cell carcinoma (CMS/HCC) 10/10/2007 History of colonic polyps 05/09/2007 Overview (01/16/2024): Next colonoscopy in 2017 Tobacco user 03/09/2007 Pulmonary embolism with infarction ([facility]) Gastroesophageal reflux disease 07/29/2006 Resolved Problems Problem Noted Date Diagnosed Date Resolved Date Essential hypertension 09/25/202004/10 Encounters Date Type Department Care Team Description 06/24/2025 Refill [facility] MED & PEDS [address] [place] [address] Lilibeth Augustin RN Back pain, unspecified back location, unspecified back pain laterality, unspecified chronicity 06/24/2025 Telephone [facility]IC[facility] [address] [place] [address] Carolina Eugene MD Med Refill 05/30/2025 9:30 AM EST Clinical Support [facility] MED & PEDS [address] [place] [address] Lilibeth Augustin RN Back pain, unspecified back location, unspecified back pain laterality, unspecified chronicity (Primary Dx) 05/30/2025 Travel 05/27/2025 Refill [facility] MED & PEDS [address] [place] [address] Carolina Eugene MD Back pain, unspecified back location, unspecified back pain laterality, unspecified chronicity 05/18/2025 Refill [facility] [address] [place] [address] Farida Tam MD 04/24/2025 Refill [facility] MED & PEDS [address] [place] [address] Farida Tam MD Back pain, unspecified back location, unspecified back pain laterality, unspecified chronicity 04/17/2025 Orders Only GENERIC EXTERNAL DATA DEPARTMENT Provider, Generic External Data from Last 3 Months Immunizations Immunization Administration [...] Upcoming Encounters Date Type Department Care Team ([facility] st Contact Info) Description 08/28/2025 9:30 AM EST Clinical Support [facility] MED & PEDS [address] [place] [address] Lilibeth Augustin, RN 505 [place] [address] Health Maintenance Due Date Last Done Comments CT Colonography 1952 FIT DNA/Cologuard 1952 FIT 1952 FOBT 1950 Sigmoidoscopy 1952 Alcohol/Substance Use Screening 1964 Hepatitis A Vaccines (1 of 2 - Risk 2-dose series) 1971 RSV Patients and Patients Aged 60 years or older (1 - Risk 50-74 years 1-dose series) 2002 Hepatitis B Vaccines (1 of 3 - Risk 3-dose series) 2012 Dental Oral Exam 06/23/2019 12/20/2018, [...] Comments POCT PATRICK-14 URINE DRUG SCREEN Routine 05/30/2025 9:54 AM EST Back pain, unspecified back location, unspecified back pain laterality, unspecified chronicity PROTEIN CREATININE RATIO, URINE Routine 04/17/2025 10:06 AM EDT ALBUMIN, RANDOM URINE W/CREATININE Routine 04/17/2025 10:06 AM EDT VITAMIN D,25-OH,TOTAL,IA Routine 04/17/2025 10:02 AM EDT FERRITIN Routine 04/17/2025 10:02 AM EDT IRON AND TOTAL IRON BINDING CAPACITY Routine 04/17/2025 10:02 AM EDT MAGNESIUM Routine 04/17/2025 10:02 AM EDT CALCIUM Routine 04/17/2025 10:02 AM EDT CREATININE, SERUM Routine 04/17/2025 10: 02 AM EDT UREA NITROGEN (BUN) Routine 04/17/2025 1 0:02 AM EDT ELECTROLYTE PANEL Routine 04/17/2025 10: 02 AM EDT PTH, INTACT WITHOUT CALCIUM Routine 04/17/2025 10:02 AM EDT CBC Routine 04/17/2025 10:02 AM EDT INTRAORAL - COMPLETE SERIES OF RADIOGRAPHIC IMAGES [...] * (ABNORMAL) POCT PATRICK-14 Urine Drug Screen (05/30/2025 9:54 AM EST) THC Positive(A) Negative Cocaine Screen, Urine Negative [...] obtained by clean catch procedure / Unknown 05/30/2025 9:54 AM EST Narrative Lilibeth Augustin RN - 05/30/2025 9:54 AM EST . Internal Pass Control Lot# [id number] Exp: 05-24-26 us Carolina Eugene MD POINT OF CARE TEST ENTER/EDIT ORDERABLES Final Result * (ABNORMAL) Protein Creatinine Ratio, Urine (04/17/2025 10:06 AM EDT) Protein, Total, Random Urine 55(H) <12 mg/dL [facility] Protein/Creati nine Ratio, Ur 0.85(H) <0.2 [facility] Comment:The spot urine prote in:creatinine ratio may increase to 0.3during normal . 04/17/2025 10:0 6 AM EDT 04/17/2025 2:27 PM EDT us Generic External Data Provider LAB URINE ORDERAB LES Final Result [facility] [address] [place] [phone] * (ABNORMAL) Albumin, Random Urine W/Creatinine (04/17/2025 10:06 AM EDT) Creatinine, Urine 64.58 mg/dL [facility] Microalbumin Urine 369.0 mg/L H [facility] Microalbum Creatinine Ratio Ur 571.3(H) <30 ug/mg cr [facility] Comment:Albumin/Creatinine R atio Reference Ranges: Normal: < 30 ug/mg creatinine Microalbuminuria: 30 - 300 ug/mg creatinineClinical Albuminuria: > 300 ug/mg creatinine 04/17/2025 10:0 6 AM EDT 04/17/2025 2:27 PM EDT us Generic External Data Provider LAB URINE ORDERAB LES Final Result [facility] [address] [place] [phone] * Vitamin D, 25-Hydroxy, Total, Immunoassay (04/17/2025 10:02 AM EDT) Vitamin D 25-OH Total 39.8 >30 ng/mL [facility] Comment: Health Based Reference Values*< 20 ng/mL Ixpqizwyb78-16 ng/mL Insufficient> 30 ng/mL Sufficient*Oliva BLUNT. N Engl J Med. 2007;357:266-280There is no well-established upper level of normal vitamin Dlevels. Some laboratories use 50 ng/mL as an upper limit ofnormal. However, toxicity is patient-dependent and may occurat any level. Careful correlation with the patient'spresentation is necessary and, if there is concern forvitamin D toxicity, treatment should be consideredirrespective of the serum level.Care must be taken in interpreting Vitamin D results fromdifferent laboratories and methodologies. Published datademonstrated that results from patients undergoinghemodialysis may show a negative bias when tested withvarious automated 25-OH vitamin D assays when compared toLC-MS/MS.When testing samples from patients whose predominant form ofVitamin D is Vitamin D2, such as patients receiving VitaminD2 supplementation, results that are subtherapeutic shouldbe confirmed with another method such as LC-MS/MS. 04/17/2025 10:0 2 AM EDT 04/17/2025 2:35 PM EDT us Generic External Data Provider LAB BLOOD ORDERAB LES Final Result Performing Organization Address City/[facility] Co de Phone Number [facility] [address] [place] [phone] * (ABNORMAL) Creatinine, Serum (04/17/2025 10:02 AM EDT) Creatinine, Serum 1.98(H) 0.5 - 1.4 mg/dL [facility] Estimated Glomerular Filt Rate 33 [facility] Comment:Chronic Kidney Disea se: Estimated GFR < 60 mL/min/1.38t3Eltrit Kidney Disease: Estimated GFR < 15 mL/min/1.73m2 04/17/2025 10:0 2 AM EDT 04/17/2025 2:35 PM EDT us Generic External Data Provider LAB BLOOD ORDERAB LES Final Result Performing Organization Address [facility] de Phone Number [facility] [address] [place] [phone] * (ABNORMAL) Iron And Total Iron Binding Capacity (04/17/2025 10:02 AM EDT) Iron 88 45 - 160 mcg/dL [facility] Total Iron Binding Capacity 196(L) 228 - 428 mcg/dL [facility] Percent Iron Saturation 45 15 - 50 % [facility] Unsaturated Iron Binding 108 ug/dL [facility] 04/17/2025 10:0 2 AM EDT 04/17/2025 2:35 PM EDT us Generic External Data Provider LAB BLOOD ORDERAB LES Final Result Performing Organization Address [facility] Co de Phone Number [facility] [address] [place] [phone] * (ABNORMAL) CBC (04/17/2025 10:02 AM EDT) White Blood Count 3.9(L) 4.8 - 10.8 X10*3/uL [facility] Red Blood Count 3.09(L) 4.60 - 5.80 X10*6/uL [facility] Hemoglobin 10.8(L) 14.0 - 18.0 g/dl [facility] Hematocrit 32.9(L) 42.0 - 52.0 % [facility] Mean Corpuscular Volume 106.5(H) 80.0 - 98.0 fL [facility] Mean Corpuscular Hemoglobin 35.0(H) 27.0 - 33.0 pg [facility] Mean Corpuscular HGB Conc 32.8 31.0 - 36.0 g/dl [facility] Red Cell Distribution Width 13.2 11.0 - 16.0 % [facility] Platelet Count 119(L) 160 - 400 X10*3/uL [facility] Mean Platelet Volume 11.7 9.4 - 12.4 fL [facility] NRBC Pct Auto 0.0 0.0 - 0.2 /100WBC [facility] NRBC Abs Auto 0.000 0.0 - 0.012 X10*3/uL [facility] 04/17/2025 10:0 2 AM EDT 04/17/2025 2:28 PM EDT us Generic External Data Provider LAB BLOOD ORDERAB LES Final Result [facility] [address] [place] [phone] * (ABNORMAL) BUN (Blood Urea Nitrogen) (04/17/2025 10:02 AM EDT) Urea Nitrogen (BUN) 31(H) 9 - 16 mg/dL [facility] 04/17/2025 10:0 2 AM EDT 04/17/2025 2:35 PM EDT Generic External Data Provider LAB BLOOD ORDERAB LES Final Result Performing Organization Address [facility] Co de Phone Number [facility] [address] [place] [phone] * (ABNORMAL) PTH, Intact Without Calcium (04/17/2025 10:02 AM EDT) Parathyroid Hormone, Intact 82.1(H) 8.7 - 77.1 pg/mL [facility] 04/17/2025 10:0 2 AM EDT 04/17/2025 2:35 PM EDT Generic External Data Provider LAB BLOOD ORDERAB LES Final Result Performing Organization Address [facility] Co de Phone Number [facility] [address] [place] [phone] * Magnesium (04/17/2025 10:02 AM EDT) Magnesium 2.1 1.6 - 2.6 mg/dL [facility] 04/17/2025 10:0 2 AM EDT 04/17/2025 2:35 PM EDT Generic External Data Provider LAB BLOOD ORDERAB LES Final Result Performing Organization Address [facility] de Phone Number [facility] [address] [place] [phone] * Ferritin (04/17/2025 10:02 AM EDT) Ferritin 242 20 - 250 ng/mL [facility] 04/17/2025 10:0 2 AM EDT 04/17/2025 2:35 PM EDT Generic External Data Provider LAB BLOOD ORDERAB LES Final Result Performing Organization Address [facility]/ZIP Co de Phone Number [facility] [address] [place] [phone] * Calcium (04/17/2025 10:02 AM EDT) Pathologist [facility] Calcium 8.9 8.4 - 10.2 mg/dL [facility] 04/17/2025 10:0 2 AM EDT 04/17/2025 2:35 PM EDT Generic External Data Provider LAB BLOOD ORDERAB LES Final Result Performing Organization Address [facility] Co de Phone Number [facility] [address] [place] [phone] * (ABNORMAL) Electrolyte Panel (04/17/2025 10:02 AM EDT) [facility] Sodium 140 135 - 145 mmol/L [facility] Potassium 4.5 3.3 - 5.1 mmol/L [facility] Chloride 106 96 - 108 mmol/L [facility] Carbon Dioxide 31(H) 22 - 29 mmol/L [facility] Anion Gap 8(L) 12 - 20 [facility] 04/17/2025 10:0 2 AM EDT 04/17/2025 2:35 PM EDT Generic External Data Provider LAB BLOOD ORDERAB LES Final Result Performing Organization Address [facility]/ZIP Co de Phone Number [facility] [address] [place] [phone] * (ABNORMAL) Lipid Panel, Standard (04/05/2023 9:54 AM EDT) Triglycerides 51 <150 mg/dL [facility] Comment:Desirable Triglyceri de: less than 150 mg/dLBorderline High Triglyceride 150-199 mg/dLHigh Triglyceride: 200-499 mg/dLVery High Triglyceride: greater than or equal to 5OO mg/dL Cholesterol 213(H) <200 mg/dL [facility] Comment:Desirable Cholestero l: less than 200 mg/dLBorderline High Cholesterol: 200-239 mg/dLHigh Cholesterol: greater than 239 mg/dL LDL Cholesterol Calculated 126(H) <100 mg/dL [facility] Comment:Desirable LDL: less than 100 mg/dLNear Optimal/Above Optimal LDL: 110- 129 mg/dLBorderline High LDL: 130-159 mg/dLHigh LDL: 160-189 mg/dLVery High LDL: greater than or equal to 190 mg/dL HDL Cholesterol 77 >40 mg/dL [facility] Comment:Desirable HDL: great er than 40 mg/dL Note: This HDL assay may give artificially low results in patients with liver disease. Blood Venous blood specimen / Unknown 04/05/2023 9:54 AM EDT 04/05/2023 2:30 PM EDT Farida Tam MD LAB BLOOD ORDERABLES Final Resul t [facility] [address] [place] [phone] * Colonoscopy (06/04/2022) Colonoscopy Normal Normal Historical Provider HEALTH MAINTENANCE Final Result from Last 3 Months or Most Recently Relevant to Health Maintenance Insurance [facility] MEDICARE ADVANTAGE HMO DENTAL-[facility] MEDICAID STAND ADULT DENTAL - [facility] PPO Care Teams Welder Gas Tungsten Arc Relationship Specialty Start Date End Date Carolina Eugene MD [address] [place] [address] PCP - General Family Medicine 05/21/25
--- OUTSIDE RECORDS SUMMARY | 2025-07-10 12:49 | XMS_ITS | Encounter Summary ---
Author Organization [employer] Address [address] [facility] 7t [place] [address] Care Team Providers Care Peanut Sheller Name Role Phone Farida Tam MD Primary Care Provider [phone] Carolina Eugene MD Primary Care Provider [phone] Reason for Visit * Reason Onset Date Comments Med Refill 12/21/2024 Encounter Details Date Type Department Care Team (Late st Contact Info) Description 12/21/2024 Telephone [facility] MEDICINE [address] [place] [address] Farida Tam MD [address] [place], [place] [phone] Med Refill Social History Tobacco Use Types Packs/Day Years Used Date Smoking Tobacco: Some Days Cigarettes Passive Smoke Exposure: Past Smokeless Tobacco: Never Comments:Has resumed smoking 2 weeks ago . Overall has been smoking x the last 50 years. Depression Answer Date Recorded Patient Health Questionnaire-9 Score 4 03/29/2023 Housing Stability Answer Date Recorded What is your housing situation today? I have colton sing 04/10/[address] you li [...] release tablet To be sent to: [facility] - [place], [place] - [address] [place] [address] documented in this encounter Plan of Treatment Upcoming Encounters Date Type Department Care Team ([facility] st Contact Info) Description 08/28/2025 9:30 AM EST Clinical Support [facility] MED & PEDS [address] [place] [address] Lilibeth Augustin, NATHALIE [address] [place] [address] documented as of this encounter Visit Diagnoses Not on filedocumented in this encounter Additional Health Concerns Assessment Noted Time PHQ-9 Depression Total Score: 4 03/29/20 23 11:07 AM EDT documented as of this encounter Care Teams Peanut Sheller Relationship Specialty Start Date End Date Farida Tam MD [address] [place] [address] PCP - General Family Medicine 09/02/15 05/20/25 Carolina Eugene MD [address] [place] [phone] PCP - General Family Medicine 05/21/25 documented as of this encounter
--- OUTSIDE RECORDS SUMMARY | 2025-07-10 12:49 | XMS_ITS | Encounter Summary ---
Author Organization [employer] Address 75 [facility] 7t [place] [address] Care Team Providers Care Coat Tailor Name Role Phone Farida Tam MD Primary Care Provider [phone] Carolina Eugene MD Primary Care Provider [phone] Reason for Visit * Reason Onset Date Comments Med Refill 11/23/2024 Encounter Details Date Type Department Care Team (Late st Contact Info) Description 11/23/[address] [facility] MEDICINE [address] [place] [address] Farida Tam MD [address] [place], [place] [phone] Med Refill Social History Tobacco Use Types [...] Description 08/28/2025 9:30 AM EST Clinical Support [facility] MED & PEDS [address] [place] [address] Lilibeth Augustin RN [address] [place] [address] documented as of this encounter Visit Diagnoses Not on filedocumented in this encounter Additional Health Concerns Assessment Noted Time PHQ-9 Depression Total Score: 4 03/29/20 23 11:07 AM EDT documented as of this encounter Care Teams Coat Tailor Relationship Specialty Start Date End Date Farida Tam MD [address] [place] [phone] PCP - General Family Medicine 09/02/15 05/20/25 Carolina Eugene MD [address] [place] [phone] PCP - General Family Medicine 05/21/25 documented as of this encounter
--- OUTSIDE RECORDS SUMMARY | 2025-07-10 12:49 | XMS_ITS | Encounter Summary ---
Author Organization [employer] Address 75 [facility] 7t [place] [address] Care Team Providers Care Ammonium Nitrate Neutralizer Name Role Phone Farida Tam MD Primary Care Provider [phone] Carolina Eugene MD Primary Care Provider [phone] Reason for Visit * Reason Onset Date Comments Pre-op Exam 01/05/2024 Encounter Details Date Type Department Care Team ([facility] st Contact Info) Description 01/05/2024 Telephone [facility] CHC MED & PEDS [address] [place], [place] [phone] Farida Tam MD 505 [place], [place] [phone] Pre-op Exam Social History Tobacco Use Types [...] yes Surgeon's name: duc Serrano Facility name: [facility] Surgeon's office number: [phone] Surgeon's office fax number: [phone] Contact name (person you spoke with): Katina Last office note from surgeon requested: Pre-Op notes, Labs, EKG documented in this encounter Plan of Treatment Upcoming Encounters Date Type Department Care Team ([facility] st Contact Info) Description 08/28/2025 9:30 AM EST Clinical Support [facility] MED [facility]ED[facility] [address] [place] [address] Lilibeth Augustin, RN 505 [place] [address] documented as of this encounter Visit Diagnoses Diagnosis Back pain, unspecified back location, unspecified back pain laterality, unspecified chronicity documented in this encounter Additional Health Concerns Assessment Noted Time PHQ-9 Depression Total Score: 4 03/29/20 23 11:07 AM EDT documented as of this encounter Care Teams Ammonium Nitrate Neutralizer Relationship Specialty Start Date End Date Farida Tam MD [address] [place] [address] PCP - General Family Medicine 09/02/15 05/20/25 Carolina Eugene MD [address] [place] [address] PCP - General Family Medicine 05/21/25 documented as of this encounter
--- OUTSIDE RECORDS SUMMARY | 2025-07-10 12:50 | XMS_ITS | Encounter Summary ---
Author Organization [employer] Address 75 [facility] 7t [place] [address] Care Team Providers Care Risk Adjustment Specialist Name Role Phone Farida Tam MD Primary Care Provider [phone] Carolina Eugene MD Primary Care Provider [phone] Reason for Visit * Reason Comments Med Refill Encounter Details Date Type Department Care Team ([facility] st Contact Info) Description 06/15/2024 Refill [facility] CHC MED & PEDS [address] [place], [place] [phone] Farida Tam MD [address] [place], [place] [phone] Back pain, unspecified back location, unspecified back [...] Description 08/28/2025 9:30 AM EST Clinical Support [facility] CHC MED & PEDS [address] [place] [address] Lilibeth Augustin, RN [address] [place] [address] documented as of this encounter Visit Diagnoses Diagnosis Back pain, unspecified back location, unspecified back pain laterality, unspecified chronicity documented in this encounter Additional Health Concerns Assessment Noted Time PHQ-9 Depression Total Score: 4 03/29/20 23 11:07 AM EDT documented as of this encounter Care Teams Risk Adjustment Specialist Relationship Specialty Start Date End Date Farida Tam MD [address] [place] [address] PCP - General Family Medicine 09/02/15 05/20/25 Carolina Eugene MD 505 [place] [address] PCP - General Family Medicine 05/21/25 documented as of this encounter
--- OUTSIDE RECORDS SUMMARY | 2025-07-10 12:50 | XMS_ITS | Encounter Summary ---
Author Organization [employer] Address 75 [facility] 7t [place] [address] Care Team Providers Care Game Artist Name Role Phone Farida Tam MD Primary Care Provider [phone] Carolina Eugene MD Primary Care Provider [phone] Reason for Visit * Reason Onset Date Comments Med Refill 03/21/2024 Encounter Details Date Type Department Care Team (Late st Contact Info) Description 03/21/2024 Telephone [facility] MEDICINE 230 [place] [address] Farida Tam MD [address] [place], [place] [phone] Med Refill Social History Tobacco Use Types [...] immediate release tablet To be sent to: [facility] - [place], [place] - [address] [place] [address] documented in this encounter Plan of Treatment Upcoming Encounters Date Type Department Care Team ([facility] st Contact Info) Description 08/28/2025 9:30 AM EST Clinical Support [facility] MED & PEDS 505 [place] [address] Lilibeth Augustin RN 505 [place] [address] documented as of this encounter Visit Diagnoses Not on filedocumented in this encounter Additional Health Concerns Assessment Noted Time PHQ-9 Depression Total Score: 4 03/29/20 23 11:07 AM EDT documented as of this encounter Care Teams Game Artist Relationship Specialty Start Date End Date Farida Tam MD 230 [place] [address] PCP - General Family Medicine 09/02/15 05/20/25 Carolina Eugene MD 505 [place] [address] PCP - General Family Medicine 05/21/25 documented as of this encounter
--- OUTSIDE RECORDS SUMMARY | 2025-07-10 12:50 | XMS_ITS | Encounter Summary ---
Author Organization [employer] Address 75 [facility] 7t [place] [address] Care Team Providers Care Laundry Sorter Name Role Phone Farida Tam MD Primary Care Provider [phone] Carolina Eugene MD Primary Care Provider [phone] Reason for Visit * Reason Onset Date Comments Med Refill 04/06/2024 Encounter Details Date Type Department Care Team (Late st Contact Info) Description 04/06/2024 Telephone [facility] MEDICINE 230 [place] [address] Farida Tam MD [address] [place], [place] [phone] Med Refill Social History Tobacco Use Types [...] immediate release tablet To be sent to: [facility] - [place] - [address] [facility] documented in this encounter Plan of Treatment Upcoming Encounters Date Type Department Care Team (Late st Contact Info) Description 08/28/2025 9:30 AM EST Clinical Support [facility] MED & PEDS [address] [place] [address] Lilibeth Augustin, NATHALIE [address] [place] [address] documented as of this encounter Visit Diagnoses Not on filedocumented in this encounter Additional Health Concerns Assessment Noted Time PHQ-9 Depression Total Score: 4 03/29/20 23 11:07 AM EDT documented as of this encounter Care Teams Laundry Sorter Relationship Specialty Start Date End Date Farida Tam MD 230 [place] [address] PCP - General Family Medicine 09/02/15 05/20/25 Carolina Eugene MD [address] [place] [address] PCP - General Family Medicine 05/21/25 documented as of this encounter
--- OUTSIDE RECORDS SUMMARY | 2025-07-10 12:50 | XMS_ITS | Encounter Summary ---
Author Organization [employer] Address [address] [place] [address] 7t [place] [address] Care Team Providers Care Hydraulic Rubbish Compactor Mechanic Name Role Phone Farida Tam MD Primary Care Provider [phone] Carolina Eugene MD Primary Care Provider [phone] Reason for Visit * Reason Onset Date Comments Med Refill 04/26/2023 Encounter Details Date Type Department Care Team (Late st Contact Info) Description 04/26/2023 Telephone [facility] CHC MED & PEDS 505 [place], [place] [phone] Farida Tam MD 505 [place] [address] Med Refill Social History Tobacco Use Types [...] Description 08/28/2025 9:30 AM EST Clinical Support [facility] CHC MED & PEDS 505 [place] [address] Lilibeth Augustin, RN 505 [place] [address] documented as of this encounter Visit Diagnoses Not on filedocumented in this encounter Additional Health Concerns Assessment Noted Time PHQ-9 Depression Total Score: 4 03/29/20 23 11:07 AM EDT documented as of this encounter Care Teams Hydraulic Rubbish Compactor Mechanic Relationship Specialty Start Date End Date Farida Tam MD 230 [place] [address] PCP - General Family Medicine 09/02/15 05/20/25 Carolina Eugene MD 505 [place] [address] PCP - General Family Medicine 05/21/25 documented as of this encounter
--- OUTSIDE RECORDS SUMMARY | 2025-07-10 12:50 | XMS_ITS | Encounter Summary ---
Author Organization [employer] Address 75 [facility] 7t [place] [address] Care Team Providers Care Structural Steel Ironworker Name Role Phone Farida Tam MD Primary Care Provider [phone] Carolina Eugene MD Primary Care Provider [phone] Reason for Visit * Reason Onset Date Comments Med Refill 05/21/2024 Encounter Details Date Type Department Care Team ([facility] st Contact Info) Description 05/21/[address] [facility] MEDICINE 230 [place] [address] Farida Tam MD [address] [place], [place] [phone] Med Refill Social History Tobacco Use Types [...] oxyCODONE (Roxicodone) 5 MG To be sent to: [facility] documented in this encounter Plan of Treatment Upcoming Encounters Date Type Department Care Team (Late st Contact Info) Description 08/28/2025 9:30 AM EST Clinical Support [facility] CHC MED & PEDS 505 [place] [address] Lilibeth Augustin, NATHALIE 505 [place] [address] documented as of this encounter Visit Diagnoses Not on filedocumented in this encounter Additional Health Concerns Assessment Noted Time PHQ-9 Depression Total Score: 4 03/29/20 23 11:07 AM EDT documented as of this encounter Care Teams Structural Steel Ironworker Relationship Specialty Start Date End Date Farida Tam MD [address] [place] [address] PCP - General Family Medicine 09/02/15 05/20/25 Carolina Eugene MD [address] [place] [address] PCP - General Family Medicine 05/21/25 documented as of this encounter
--- OUTSIDE RECORDS SUMMARY | 2025-07-10 12:50 | XMS_ITS | Encounter Summary ---
Author Organization [employer] Address 75 [facility] 7t [place] [address] Care Team Providers Care Federal Aid Coordinator Name Role Phone Farida Tam MD Primary Care Provider [phone] Carolina Eugene MD Primary Care Provider [phone] Reason for Visit * Reason Onset Date Comments Med Refill 02/02/2024 Encounter Details Date Type Department Care Team (Late st Contact Info) Description 02/02/2024 Telephone [facility] MEDICINE 230 [place] [address] Farida Tam MD [address] [place], [place] [phone] Med Refill Social History Tobacco Use Types [...] immediate release tablet To be sent to: [facility] - [place], [place] - [address] [place] [address] documented in this encounter Plan of Treatment Upcoming Encounters Date Type Department Care Team ([facility] st Contact Info) Description 08/28/2025 9:30 AM EST Clinical Support [facility] MED & PEDS 505 [place] [address] Lilibeth Augustin, RN 505 [place] [address] documented as of this encounter Visit Diagnoses Not on filedocumented in this encounter Additional Health Concerns Assessment Noted Time PHQ-9 Depression Total Score: 4 03/29/20 23 11:07 AM EDT documented as of this encounter Care Teams Federal Aid Coordinator Relationship Specialty Start Date End Date Farida Tam MD [address] [place] [address] PCP - General Family Medicine 09/02/15 05/20/25 Carolina Eugene MD 505 [place] [address] PCP - General Family Medicine 05/21/25 documented as of this encounter
--- OUTSIDE RECORDS SUMMARY | 2025-07-10 12:50 | XMS_ITS | Encounter Summary ---
Author Organization [employer] Address 75 [facility] 7t [place] [address] Care Team Providers Care Sterile Processing Manager Name Role Phone Farida Tam MD Primary Care Provider [phone] Carolina Eugene MD Primary Care Provider [phone] Reason for Visit * Reason Onset Date Comments Med Refill 02/29/2024 Encounter Details Date Type Department Care Team (Late st Contact Info) Description 02/29/2024 Telephone [facility] MEDICINE 230 [place] [address] Farida Tam MD [address] [place], [place] [phone] Med Refill Social History Tobacco Use Types [...] release tablet To be sent to: [facility] - [place], [place] - [address] [place] [address] documented in this encounter Plan of Treatment Upcoming Encounters Date Type Department Care Team ([facility] st Contact Info) Description 08/28/2025 9:30 AM EST Clinical Support [facility] MED & PEDS 505 [place] [address] Lilibeth Augustin RN 505 [place] [address] documented as of this encounter Visit Diagnoses Not on filedocumented in this encounter Additional Health Concerns Assessment Noted Time PHQ-9 Depression Total Score: 4 03/29/20 23 11:07 AM EDT documented as of this encounter Care Teams Sterile Processing Manager Relationship Specialty Start Date End Date Farida Tam MD 230 [place] [address] PCP - General Family Medicine 09/02/15 05/20/25 Carolina Eugene MD 505 [place] [address] PCP - General Family Medicine 05/21/25 documented as of this encounter
--- OUTSIDE RECORDS SUMMARY | 2025-07-10 12:50 | XMS_ITS | Patient Health Record ---
Author Organization [facility] Address [address] [place] [address] Care Team Providers Care Criminal Justice Faculty Name Role Phone PARISA KEIKO Primary Care Provider Joey Cleaning Jr Unavailable Allergies No Known Allergies Reason For Referral No Information Medications Medication SIG (Take, Route, Frequency, Duration) Notes Start Date End Date Status MiraLax (colon prep) 17 GM/SCOOP Powder mixed with Gatorade or Crystal Light Orally begin at 5:00 p.m. the day before the procedure; Duration: 1 day 05/12/2022 Active traMADol HCl 50 MG Tablet TAKE ONE TABLE T BY MOUTH EVERY TWELVE HOURS Diagnosis Unavailable Oral; Duration: 28 Active Colchicine 0.6 MG Tablet TAKE ONE TABLET EVERY MORNING (FOR GOUT) Oral; Duration: 30 Active Loratadine 10 MG Tablet 1 tablet Orally Once a day; Duration: 30 day(s) Active SM All Day Allergy Relief 10 MG Tablet TAKE ONE TABLET BY MOUTH EVERY MORNING Oral; Duration: 30 Active Atenolol 50 MG Tablet TAKE ONE TABLET EV JERAMIE MORNING FOR BLOOD PRESSURE Oral; Duration: 30 Active amLODIPine Besylate 10 MG Tablet Oral; Duration: 30 Active Vitamin D3 25 MCG Tablet TAKE ONE TABLET BY MOUTH EVERY MORNING Oral; Duration: 30 Active Dulcolax (colon prep) 5 MG Tablet Delayed Release take at 3:00 p.m and 7:00p.m. Orally two tablets twice a day for one day; Duration: 30 days 05/12/2022 Activ e Immunizations Vaccine Route Administration Date Status Comme nts Influenza Unknown 05/05/2022 Administered Social History Tobacco Use: Social History Observation Description Date Details (start date - stop date) Former Smoker NA - NA Social History Drugs/Alcohol: Social Info Question Answer Notes Alcohol Screen Did you have a drink containing alcohol in the past year? No Points 0 Interpretation Negative Tobacco Use: Social Info Question Answer Notes Tobacco Use/Smoking Patient is a former smoker Additional Details Category Social Info Options Details Miscellaneous: Marital status: Occupation: retired Problems Problem Type SNOMED Code ICD Code Onset Dates Problem Status W/U Status Risk Notes Problem Colon cancer screening (003428892) Colon cancer screening (Z12.11) Active confirmed Plan Of Treatment Future Test Test Name Order Date COLONOSCOPY 05/12/2022 Insurance Providers Payer Name Payer Address Payer Phone Subscriber Number Group Number Insured Name Patient Relationship to Insured Coverage Start Date Coverage End Date A[employer] MEDI COMPLETE (REFERRAL REQUIRED) [address] [address] [place] [address] [id number] FEI LYNCH Self - patient is the insured Medical (General) History Medical History History ICD Code Hypertension Gout Sciatica Arthritis Chronic kidney disease Pulmonary embolism Surgical History Surgery Date(Month/Year) Right middle lobectomy for lung cancer right inguinal hernia repair Right nephrectomy.
--- OUTSIDE RECORDS SUMMARY | 2025-07-10 12:50 | XMS_ITS | Encounter Summary ---
Author Organization [employer] Address 75 [facility] 7t [place] [address] Care Team Providers Care Scroll Machine Operator Name Role Phone Farida Tam MD Primary Care Provider [phone] Carolina Eugene MD Primary Care Provider [phone] Reason for Visit * Reason Onset Date Comments Results 02/02/2024 Encounter Details Date Type Department Care Team ([facility] st Contact Info) Description 02/02/2024 Telephone [facility] MEDICINE 230 [place] [address] Farida Tam MD [address] [place], [place] [phone] Results Social History Tobacco Use Types Packs/Day [...] Miscellaneous Notes * Telephone Encounter - Andrews Patrice - 02/02/2024 12:41 PM EDT TC from [facility] requesting Lab results to be faxed regarding upcoming surgery. Type of results: CBC and Basic Metabolic Panel Date when done: 01/16 Facility: [facility] labs documented in this encounter Plan of Treatment Upcoming Encounters Date Type Department Care Team (Late st Contact Info) Description 08/28/2025 9:30 AM EST Clinical Support [facility] CHC MED & PEDS 505 [place] [address] Lilibeth Augustin RN 505 [place] [address] documented as of this encounter Visit Diagnoses Not on filedocumented in this encounter Additional Health Concerns Assessment Noted Time PHQ-9 Depression Total Score: 4 03/29/20 23 11:07 AM EDT documented as of this encounter Care Teams Scroll Machine Operator Relationship Specialty Start Date End Date Farida Tam MD [address] [place] [address] PCP - General Family Medicine 09/02/15 05/20/25 Carolina Eugene MD 505 [place] [address] PCP - General Family Medicine 05/21/25 documented as of this encounter
--- OUTSIDE RECORDS SUMMARY | 2025-07-10 12:50 | XMS_ITS | Encounter Summary ---
Author Organization [email or web address] Address 75 [facility] 7t [place] [address] Care Team Providers Care Construction Engineer Name Role Phone Farida Tam MD Primary Care Provider [phone] Carolina Eugene MD Primary Care Provider [phone] Reason for Visit * Reason Comments Med Refill Encounter Details Date Type Department Care Team ([facility] st Contact Info) Description 01/28/2023 Refill [facility] CHC MED & PEDS [address] [place], [place] [phone] Farida Tam MD 505 [place] [address] Pain Social History Tobacco Use Types Packs/Day [...] Description 08/28/2025 9:30 AM EST Clinical Support [facility] CHC MED & PEDS 505 [place] [address] Lilibeth Augustin, RN 505 [place] [address] documented as of this encounter Visit Diagnoses Diagnosis Pain Generalized pain documented in this encounter Care Teams Construction Engineer Relationship Specialty Start Date End Date Farida Tam MD [address] [place] [address] PCP - General Family Medicine 09/02/15 05/20/25 Carolina Eugene MD 505 [place] [address] PCP - General Family Medicine 05/21/25 documented as of this encounter
--- OUTSIDE RECORDS SUMMARY | 2025-07-10 12:50 | XMS_ITS | Encounter Summary ---
Author Organization [employer] Address 75 [facility] 7t [place] [address] Care Team Providers Care Training Assistant Name Role Phone Farida Tam MD Primary Care Provider [phone] Carolina Eugene MD Primary Care Provider [phone] Encounter Details Date Type Department Care Team ([facility] st Contact Info) Description 02/17/2024 Orders Only [facility] CHC MED & PEDS [address] [place], [place] [phone] Provider, MD Lissa Social History Tobacco Use Types Packs/Day Years [...] [facility] MED & PEDS 505 [place] [address] Lilibeth Augustin RN 505 [place] [address] documented as of this encounter Procedures Procedure Name Priority Date/Time Associated Diagnosis Comments SURGICAL PATHOLOGY Routine 02/07/2024 2:44 PM EDT documented in this encounter Results * Surgical Pathology (02/07/2024 2:44 PM EDT) us Historical Provider LAB PATHOLOGY ORDERABLES Final Result documented in this encounter Visit Diagnoses Not on filedocumented in this encounter Additional Health Concerns Assessment Noted Time PHQ-9 Depression Total Score: 4 03/29/20 23 11:07 AM EDT documented as of this encounter Care Teams Training Assistant Relationship Specialty Start Date End Date Farida Tam MD 230 [place] [address] PCP - General Family Medicine 09/02/15 05/20/25 Carolina Eugene MD 505 [place] [address] PCP - General Family Medicine 05/21/25 documented as of this encounter
--- OUTSIDE RECORDS SUMMARY | 2025-07-10 12:50 | XMS_ITS | Encounter Summary ---
Author Organization [employer] Address [address] [place] [address] 7t [place] [address] Care Team Providers Care Bar Welder Name Role Phone Farida Tam MD Primary Care Provider [phone] Carolina Eugene MD Primary Care Provider [phone] Encounter Details Date Type Department Care Team (Latest Contact Info) Description 12/20/2018 Abstract [facility] CONVERSIONS Dental, Provider, DDS Social History [...] Description 08/28/2025 9:30 AM EST Clinical Support [facility] CHC MED & PEDS 505 [place] [address] Lilibeth Aguustin, NATHALIE 505 [place] [address] documented as of this encounter Visit Diagnoses Not on filedocumented in this encounter Care Teams Bar Welder Relationship Specialty Start Date End Date Farida Tam MD [address] [place] [address] PCP - General Family Medicine 09/02/15 05/20/25 Carolina Eugene MD [address] [place] [address] PCP - General Family Medicine 05/21/25 documented as of this encounter
--- OUTSIDE RECORDS SUMMARY | 2025-07-10 12:50 | XMS_ITS | Encounter Summary ---
Author Organization [employer] Address 75 [facility] 7t [place] [address] Care Team Providers Care Director Industrial Nursing Name Role Phone Farida Tam MD Primary Care Provider [phone] Carolina Eugene MD Primary Care Provider [phone] Reason for Visit * Reason Onset Date Comments Med Refill 03/14/2024 Encounter Details Date Type Department Care Team (Late st Contact Info) Description 03/14/2024 Telephone [facility] MEDICINE 230 [place] [address] Farida Tam MD [address] [place], [place] [phone] Med Refill Social History Tobacco Use Types [...] encounter Miscellaneous Notes * Telephone Encounter - Xenabraineleazar Og - 03/14/2024 1:55 PM EDT TC from pt Spouse requesting medication refill. Medications needing refill : oxyCODONE (Roxicodone) 5 MG immediate release tablet To be sent to: [facility] documented in this encounter Plan of Treatment Upcoming Encounters Date Type Department Care Team (Late st Contact Info) Description 08/28/2025 9:30 AM EST Clinical Support [facility] MED & PEDS 505 [place] [address] Lilibeth Augustin RN 505 [place] [address] documented as of this encounter Visit Diagnoses Not on filedocumented in this encounter Additional Health Concerns Assessment Noted Time PHQ-9 Depression Total Score: 4 03/29/20 23 11:07 AM EDT documented as of this encounter Care Teams Director Industrial Nursing Relationship Specialty Start Date End Date Farida Tam MD 230 [place] [address] PCP - General Family Medicine 09/02/15 05/20/25 Carolina Eugene MD 505 [place] [address] PCP - General Family Medicine 05/21/25 documented as of this encounter
--- OUTSIDE RECORDS SUMMARY | 2025-07-10 12:50 | XMS_ITS | Encounter Summary ---
Author Organization [employer] Address 75 [facility] 7t [place] [address] Care Team Providers Care Halfway House Counselor Name Role Phone Farida Tam MD Primary Care Provider [phone] Carolina Eugene MD Primary Care Provider Reason for Visit * Reason Comments Med Refill Encounter Details Date Type Department Care Team ([facility] st Contact Info) Description 04/09/2024 Refill [facility] MED & PEDS [address] [place], [place] [phone] Farida Tam MD 505 [place], [place] [phone] Back pain, unspecified back location, unspecified back [...] Description 08/28/2025 9:30 AM EST Clinical Support [facility] MED & PEDS [address] [place] [address] Lilibeth Augustin, RN 505 [place] [address] documented as of this encounter Visit Diagnoses Diagnosis Back pain, unspecified back location, unspecified back pain laterality, unspecified chronicity documented in this encounter Additional Health Concerns Assessment Noted Time PHQ-9 Depression Total Score: 4 03/29/20 23 11:07 AM EDT documented as of this encounter Care Teams Halfway House Counselor Relationship Specialty Start Date End Date Farida Tam MD [address] [place] [address] PCP - General Family Medicine 09/02/15 05/20/25 Carolina Eugene MD 505 [place] [address] PCP - General Family Medicine 05/21/25 documented as of this encounter
--- OUTSIDE RECORDS SUMMARY | 2025-07-10 12:50 | XMS_ITS | Encounter Summary ---
Author Organization [employer] Address [address] [place] [address] 7t [place] [address] Care Team Providers Care Qualified Craft Worker Electrician Name Role Phone Farida Tam MD Primary Care Provider Carolina Eugene MD Primary Care Provider [phone] Encounter Details Date Type Department Care Team (Late Contact Info) Description 02/01/2023 Orders Only [facility] CHC MED & PEDS 505 [place] [address] Farida Tam MD 505 [place] [address] Social History Tobacco Use Types Packs/Day Years [...] Encounters Date Type Department Care Team (Late Contact Info) Description 08/28/2025 9:30 AM EST Clinical Support [facility] MED & PEDS 505 [place] [address] Lilibeth Augustin RN 505 [place] [address] documented as of this encounter Visit Diagnoses Not on filedocumented in this encounter Care Teams Qualified Craft Worker Electrician Relationship Specialty Start Date End Date Farida Tam MD [address] [place] [address] PCP - General Family Medicine 09/02/15 05/20/25 Carolina Eugene MD [address] [place] [address] PCP - General Family Medicine 05/21/25 documented as of this encounter
--- OUTSIDE RECORDS SUMMARY | 2025-07-10 12:50 | XMS_ITS | Encounter Summary ---
Author Organization [employer] Address [address] [place] [address] 7t [place] [address] Care Team Providers Care Mandarin Tutor Name Role Phone Farida Tam MD Primary Care Provider Carolina Eugene MD Primary Care Provider [phone] Reason for Visit * Reason Comments Med Refill Encounter Details Date Type Department Care Team (Late Contact Info) Description 04/27/2023 Refill [facility] MED & PEDS 505 [place] [address] Farida Tam MD 505 [place] [address] Social History Tobacco Use Types Packs/Day Years [...] 08/28/2025 9:30 AM EST Clinical Support [facility] MED & PEDS 505 [place] [address] Lilibeth Augustin, NATHALIE 505 [place], [place] [phone] documented as of this encounter Visit Diagnoses Not on filedocumented in this encounter Additional Health Concerns Assessment Noted Time PHQ-9 Depression Total Score: 4 03/29/20 23 11:07 AM EDT documented as of this encounter Care Teams Mandarin Tutor Relationship Specialty Start Date End Date Farida Tam MD [address] [place] [address] PCP - General Family Medicine 09/02/15 05/20/25 Carolina Eugene MD [address] [place] [address] PCP - General Family Medicine 05/21/25 documented as of this encounter
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
--- OUTSIDE RECORDS SUMMARY | 2025-07-10 12:51 | XMS_ITS | Encounter Summary ---
Author Organization [employer] Address 75 [facility] 7t [place] [address] Care Team Providers Care Brim Blocker Name Role Phone Farida Tam MD Primary Care Provider [phone] Carolina Eugene MD Primary Care Provider [phone] Encounter Details Date Type Department Care Team ([facility] st Contact Info) Description 08/28/2024 Orders Only [facility] CHC MED & PEDS [address] [place], [place] [phone] Farida Tam MD 505 [place], [place] [phone] Back pain, unspecified back location, unspecified back [...] Description 08/28/2025 9:30 AM EST Clinical Support [facility] CH[facility] MED & PEDS [address] [place] [address] Lilibeth Augustin, NATHALIE 505 [place] [address] documented as of this encounter Visit Diagnoses Diagnosis Back pain, unspecified back location, unspecified back pain laterality, unspecified chronicity documented in this encounter Additional Health Concerns Assessment Noted Time PHQ-9 Depression Total Score: 4 03/29/20 23 11:07 AM EDT documented as of this encounter Care Teams Brim Blocker Relationship Specialty Start Date End Date Farida Tam MD [address] [place] [address] PCP - General Family Medicine 09/02/15 05/20/25 Carolina Eugene MD 505 [place] [address] PCP - General Family Medicine 05/21/25 documented as of this encounter
--- OUTSIDE RECORDS SUMMARY | 2025-07-10 12:51 | XMS_ITS | Encounter Summary ---
Author Organization [employer] Address 75 [facility] 7t [place] [address] Care Team Providers Care Hot Knife Foxing Cutter Name Role Phone Farida Tam MD Primary Care Provider [phone] Carolina Eugene MD Primary Care Provider [phone] Reason for Visit * Reason Onset Date Comments Med Refill 07/13/2023 Encounter Details Date Type Department Care Team (Late st Contact Info) Description 07/13/2023 Telephone [facility] MEDICINE [address] [place] [address] Farida Tam MD [address] [place], [place] [phone] Med Refill Social History Tobacco Use Types [facility] [address] [place] [address] Lilibeth Augustin, NATHALIE 505 [place] [address] documented as of this encounter Visit Diagnoses Not on filedocumented in this encounter Additional Health Concerns Assessment Noted Time PHQ-9 Depression Total Score: 4 03/29/20 23 11:07 AM EDT documented as of this encounter Care Teams Hot Knife Foxing Cutter Relationship Specialty Start Date End Date Farida Tam MD [address] [place] [address] PCP - General Family Medicine 09/02/15 05/20/25 Carolina Eugene MD 505 [place] [address] PCP - General Family Medicine 05/21/25 documented as of this encounter
--- OUTSIDE RECORDS SUMMARY | 2025-07-10 12:51 | XMS_ITS | Encounter Summary ---
Author Organization [employer] Address [address] [facility] 7t [place] [address] Care Team Providers Care Plumbing Engineering Draftsperson Name Role Phone Farida Tam MD Primary Care Provider [phone] Carolina Eugene MD Primary Care Provider [phone] Encounter Details Date Type Department Care Team ([facility] st Contact Info) Description 08/28/2024 Orders Only [facility] PEDS [address] [place], [place] [id number] Niurka Berrios MA Social History Tobacco Use [...] Upcoming Encounters Date Type Department Care Team ([facility] st Contact Info) Description 08/28/2025 9:30 AM EST Clinical Support [facility] P[facility]S [address] [place] [address] Lilibeth Augustin, NATHALIE [address] [place] [address] documented as of this encounter Visit Diagnoses Not on filedocumented in this encounter Additional Health Concerns Assessment Noted Time PHQ-9 Depression Total Score: 4 03/29/20 23 11:07 AM EDT documented as of this encounter Care Teams Plumbing Engineering Draftsperson Relationship Specialty Start Date End Date Farida Tam MD [address] [place] [address] PCP - General Family Medicine 09/02/15 05/20/25 Carolina Eugene MD [address] [place] [address] PCP - General Family Medicine 05/21/25 documented as of this encounter
--- OUTSIDE RECORDS SUMMARY | 2025-07-10 12:51 | XMS_ITS | Data Portability ---
Author Organization [facility] Address [address] [place] [address] Assessment Encounter Date Assessment Date Assessment LastModified by Organization Details LastModified Time 04/29/2016 04/29/2016 Mulugeta Moore is a 65 year old man with complaints of pain in his right lower extremity. The pain starts in the lateral aspect of his right hip and radiates into his right leg. He feels his right leg is weaker than his left leg . 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 I recommend a MRI Lumbar spine to elucidate the etiology of his pain. He has been recently diagnosed with a nodule in his lung by a CT scan and is having further work up done and will call us with results so we can order the MRI Lumbar spine. [email or web address] Not available 05/29/2016 19:08:20 07/01/2016 07/01/2016 Mulugeta Moore is a 65 year old man with complaints of pain in his right lower extremity. The pain starts in the lateral aspect of his right hip and radiates into his right leg. He feels his right leg is weaker than his left leg . On exam, straight leg raising test is positive on the right. MRI Lumbar spine which shows Diffusely mottled bony signal intensity, possibly representing osteoporosis.Ne w right pleural effusion, of uncertain size. Bilateral foraminal stenosis, worse on the left, at L5-S1. Left foraminal stenosis at L4-L5. I recommend a trial of Lumbar epidural steroid injection at L5-S1 level under fluoroscopic guidance .The risks and benefits of the procedure were discussed in detail. He wishes to proceed. An appointment has been booked and he needs a milk driver on the day of the procedure. [email or web address] Not available 07/01/2016 13:30:40 07/13/2016 07/13/2016 Mulugeta Moore is a 65 year old man with complaints of pain in his right lower extremity. The pain starts in the lateral aspect of his right hip and radiates into his right leg. He feels his right leg is weaker than his left leg . On exam, straight leg raising test is positive on the right. MRI Lumbar spine which shows Diffusely mottled bony signal intensity, possibly representing osteoporosis.Ne w right pleural effusion, of uncertain size. Bilateral foraminal stenosis, worse on the left, at L5-S1. Left foraminal stenosis at L4-L5. He is here for a trial of Lumbar epidural steroid injection at L5-S1 level under fluoroscopic guidance .The risks and benefits of the procedure were discussed in detail. He wishes to proceed. He will follow up in four weeks. [email or web address] Not available 07/15/2016 10:36:09 08/12/2016 08/12/2016 Mulugeta Moore is a 65 year old man with complaints of right sided low back pain radiating into right hip. He is here for a follow up after a trial of lumbar epidural steroid injection under fluoroscopic guidance. He reports no pain benefit. On exam, Facet loading is positive on the right. MRI Lumbar spine which shows Diffusely mottled bony signal intensity, possibly representing osteoporosis.Ne w right pleural effusion, of uncertain size. Bilateral foraminal stenosis, worse on the left, at L5-S1. Left foraminal stenosis at L4-L5. I recommend a trial of Lumbar facet joint steroid injection at L4-5 and L5-S1 level under fluoroscopic guidance .The risks and benefits of the procedure were discussed in detail. He wishes to proceed. An appointment has been booked and he needs a milk driver on the day of the procedure. [email or web address] Not available 08/13/2016 09:30:50 08/25/2016 08/25/2016 Mulugeta Moore is a 66 year old man with complaints of right sided low back pain radiating into right hip. On exam, Facet loading is positive on the right. MRI Lumbar spine which shows Diffusely mottled bony signal intensity, possibly representing osteoporosis.Ne w right pleural effusion, of uncertain size. Bilateral foraminal stenosis, worse on the left, at L5-S1. Left foraminal stenosis at L4-L5. He is here for a trial of Lumbar facet joint steroid injection at L4-5 and L5-S1 level under fluoroscopic guidance .The risks and benefits of the procedure were discussed in detail. He wishes to proceed. He needs to follow up in six weeks to assess the benefits. [email or web address] Not available 2016 10:35:37 Plan of Treatment Reminders Order Date Submit Date Provider Last Modified By Organization Details Last Modified Time Details Appointments None record ed. Lab None record ed. Referral None record ed. Procedures None record ed. Surgeries None record ed. Imaging None record ed. Medication Orders None record ed. Patient TargetsNo targets recorded. Patient Instructions Encounter Date Encounter Id Patient Instructions Last Modified By Organization Details Last Modified Time 04/29/2016 [id number] He was advised to continue activities as tolerated [email or web address] Not available 05/29/2016 19:09:07 07/01/2016 [id number] He was advised to continue activities as tolerated [email or web address] Not available 07/01/2016 13:27:48 07/13/2016 [id number] He was advised to continue activities as tolerated tmanikantan Not available 07/13/2016 09:59:02 08/12/2016 [id number] He was advised to continue activities as tolerated [email or web address] Not available 08/13/2016 09:29:14 08/25/2016 [id number] He was advised to continue activities as tolerated tmanikantan Not available 2016 10:31:41 Reason for Referral None Reported. Results Created Date Observation Date Name Description Value Unit Range Abnormal Flag Note LastModifiedBy Organization Detail LastModifiedTime 06/22/20 16 06/22/2016 MRI, lumba r spine , w/wo contr ast No observ ation record ed. [facility] Diagn[facility] Imaging Dept [address] [place] [address], [address], 07/01/2016 11:06:44 Result Notes None recorded. Problems Name Problem SNOMED Code Status Onset Date Resolution Date Notes Provider Name and Address Organization Details Recorded Time Greater trochanteric pain syndrome 0179803 Active Rodolfo rae MD [address] [place] [address] , [address], [place], [address] , [place] [facility] 6 13:57:50 Problem Notes None recorded. Procedures Surgical History Date Name Laterality Status Provider Name and Address Organization Details Recorded Time 08/25/19 17 Fluoroscopic Guided Lumbar Facet Steroid Injections of levels completed Rodolfo Bermudez MD [address] , [address], [place], [address], [place] [facility] 2016 10:34:08 07/13/20 16 Lumbar Epidural steroid injection under fluoroscopic guidance completed Rodolfo Bermudez MD [address] , [address], [place], [address], [place] [facility] 07/14/2016 10:43:50 03/31/20 16 Greater Trochanteric Bursa Steroid Injection completed Rodolfo Bermudez MD [address] , [address], [place], [address], [place] [facility] 04/02/2016 15:20:00 Other completed Brianda Reece [place] - [facility] 03/19/2016 11:15:51 Other completed Brianda Reece [place] - [facility] 07/01/2016 09:33:39 Imaging Results None recorded. Procedure Notes None recorded. Medical Equipment None Reported. Allergies No known drug allergies Medications Name Sig Start Date Stop Date Status Note LastModified by Organization Details LastModified Time acetaminoph en 325 mg tablet TAKE 2 TABLETS BY MOUTH 4 TIMES A DAY NEEDED active Not Available Not Available No t Available prednisone 10 mg tablet 07/01 completed Not Available Not Available Not Available trazodone 50 mg tablet TAKE 0.5-2 TABS BY MOUTH AT BEDTIME NEEDED FOR SLEEP. 07/01 completed Not Available Not Available Not Available cetirizine 10 mg tablet TAKE 1 TABLET BY MOUTH EVERY DAY active Not Available Not Available No t Available azithromyci n 250 mg tablet 08/25 completed Not Available Not Available Not Available amlodipine 2.5 mg tablet TAKE 1 TABLET BY MOUTH EVERY DAY active Not Available Not Available No t Available tramadol 50 mg tablet 07/01 completed Not Available Not Available Not Available meloxicam 7.5 mg tablet TAKE 1 TABLET BY MOUTH EVERY DAY 07/01 completed Not Available Not Available Not Available oxycodone-a cetaminophe n 5 mg-325 mg tablet TAKE 1 TABLET BY MOUTH EVERY 24 HOURS 07/01 completed Not Available Not Available Not Available Non-Aspirin Extra Strength 500 mg tablet 07/01 completed Not Available Not Available Not Available amlodipine 10 mg tablet TAKE 1 TABLET BY MOUTH EVERY DAY 07/01 completed Not Available Not Available Not Available cephalexin 500 mg capsule 03/31 completed Not Available Not Available Not Available NTS Step 1 21 mg/24 hr transdermal 24 hour patch 07/01 completed Not Available Not Available Not Available indomethaci n 50 mg capsule 07/01 completed Not Available Not Available Not Available Ear Drops (carbamide peroxide) 6.5 % active Not Available Not Available Not Available lisinopril 5 mg tablet TAKE 1 TABLET BY MOUTH EVERY DAY 07/01 completed Not Available Not Available Not Available ibuprofen 600 mg tablet TAKE 1 TABLET BY MOUTH TWICE A DAY active Not Available Not Available No t Available colchicine 0.6 mg tablet TAKE 1 TABLET BY MOUTH EVERY DAY FOR GOUT active Not Available Not Available No t Available colchicine 0.5 mg tablet daily 04/29 completed Not Available Not Available Not Available atenolol 50 mg tablet TAKE 1 TABLET BY MOUTH EVERY DAY active Not Available Not Available No t Available loratadine 10 mg tablet 07/01 completed Not Available Not Available Not Available naproxen 500 mg tablet 07/01 completed Not Available Not Available Not Available nicotine 7 mg/24 hr daily transdermal patch APPLY 1 PATCH BY TRANSDERM AL ROUTE EVERY DAY 07/01 completed Not Available Not Available Not Available oxycodone 5 mg tablet TAKE 1 TABLET BY MOUTH EVERY 4 HOURS NEEDED FOR PAIN 07/01 completed Not Available Not Available Not Available ProAir HFA 90 mcg/actuati on aerosol inhaler INHALE 2 PUFFS BY MOUTH 4 TIMES DAILY active Not Available Not Available No t Available hydrochloro thiazide 12.5 mg tablet TAKE 1 TABLET BY MOUTH EVERY DAY 07/01 completed Not Available Not Available Not Available Vitals Date Recorded Body height Oxygen saturation Heart rate Systolic And Diastolic Provider Name and Address Organization Details Last Updated DateTime 08/12/2016 165.1 cm 97 % 67 /min 135/75 mm[Hg] Brianda [facility] 08/12/2016 11:18:32 Date Recorded Body height Heart rate Oxygen saturation Systolic And Diastolic Provider Name and Address Organization Details Last Updated DateTime 08/25/2016 165.1 cm 76 /min 97 % 141/59 mm[Hg] Brianda Reece [place] [facility] 08/25/2016 11:24:05 Date Recorded Body height Heart rate Oxygen saturation Systolic And Diastolic Provider Name and Address Organization Details Last Updated DateTime 04/29/2016 165.1 cm 52 /min 99 % 144/82 mm[Hg] Brianda Reece [place] [facility] 04/29/2016 10:12:49 Date Recorded Body height Heart rate Oxygen saturation Systolic And Diastolic Provider Name and Address Organization Details Last Updated DateTime 07/01/2016 165.1 cm 57 /min 98 % 155/84 mm[Hg] Brianda [place]ece [place] [facility] 07/01/2016 09:27:15 Date Recorded Body height Heart rate Oxygen saturation Systolic And Diastolic Provider Name and Address Organization Details Last Updated DateTime 07/13/2016 165.1 cm 50 /min 99 % 186/77 mm[Hg] Brianda Reece [place] [facility] 07/13/2016 09:14:03 Social History Question Answer Notes LastModified by [employer] Details LastModified Time Tobacco Smoking Status Current Every Day Smoker Not Available [facility] 05/09/2020 03:16:11 Which Illicit Or Recreational Drugs Have You Used? NO [id number] Information not available 05/09/2020 [email or web address] Information no t available 03/19/2016 Live Alone Or With Others? With Others er6 Information not available 03/19/2016 [facility] Informatio n not available 03/19/2016 How Much Tobacco Do You Smoke? 1 PPD [id number] Information not available 05/09/2020 How Many Years Have You Smoked Tobacco? 50 [id number] Information not available 05/09/2020 Sex: Unknown Functional Status Question Answer Note LastModified by [employer] Details LastModified Time What is your level of alcohol consumption? Occasional [id number] Information not available 05/09/2020 Are you currently employed? No [id number] Information not available 05/09/2020 Mental Status None recorded. Family History Relationship Description Onset Age of this Age Resolved Age Notes LastModified by Organization Details LastModified Time Father Diabetes mellitus [email or web address] Not available 02/23 13:52:37 Mother Malignant neoplastic disease Throat [email or web address] Not available 02/23 13:52:37 Medical History Condition Response Cancer Y Arthritis Y Hypertension Y Past Encounters Encounter ID Performer Location Encounter Start Date Encounter Closed Date Diagnosis/Indication Diagnosis SNOMED-CT Code Diagnosis ICD10 Code Diagnosis IMO Codes Diagnosis Note [id number] Rodolfo Bermudez MD PAIN OFFICE [email or web address] [place] [address] 03/19/2016 10:37:20 03/22/2016 13:57:59 Greater trochanteric pain syndrome 6019899 M70.61 [id number] Rodolfo Bermudez MD PAIN OFFICE [address] [place] [address] 03/31/2016 10:44:29 04/02/2016 15:25:10 Greater trochanteric pain syndrome 1236370 M70.61 [id number] Rodolfo Bermudez MD PAIN OFFICE [address] [facility] [address] 04/29/2016 09:47:50 05/29/2016 19:10:19 Lumbosacral radiculitis 78013045 M54.17 Spinal rosa nosis of lumbar region 30814691 M48.06 Greater tr ochanteric pain syndrome 4643438 M70.61 [id number] Rodolfo Bermudez MD PAIN OFFICE [address] [facility] [place] [address] 07/01/2016 09:19:30 07/01/2016 13:32:51 Spinal stenosis of lumbar region 92567605 M48.06 Greater tr ochanteric pain syndrome 7197558 M70.61 Lumbosacra l radiculitis 39698473 M54.17 [id number] Rodolfo Bermudez MD PAIN OFFICE [address] [place] [address] 07/13/2016 09:01:57 07/14/2016 10:46:29 Greater trochanteric pain syndrome 3661031 M70.61 Lumbosacra l radiculitis 29955689 M54.17 Spinal rosa nosis of lumbar region 88116972 M48.06 [id number] Rodolfo Bermudez MD PAIN OFFICE [address] [place] [place] [address] 08/12/2016 10:47:10 08/13/2016 09:34:16 Lumbosacral radiculitis 27476791 M54.17 Spinal rosa nosis of lumbar region 37976106 M48.06 Greater tr ochanteric pain syndrome 2618323 M70.61 [id number] Rodolof Bermudez MD PAIN OFFICE [address] [facility] [place] [address] 08/25/2016 10:45:16 2016 11:41:57 Lumbosacral radiculitis 80351810 M54.17 Spinal rosa nosis of lumbar region 52875481 M48.06 Greater tr ochanteric pain syndrome 9799329 M70.61 Lumbosacra l spondylosis without myelopathy 75340830 M47.817 Health Concerns Section Related Observation LastModified by Organization Detai ls LastModified Time None Recorded Concern Status LastModified by Organization Details LastModified Time None Recorded Advance Directives Directive None Recorded Payers Insurance Date Sequence Insurance Name Policy Number Policy Davis Covered Member ID Davis Member ID Guarantor Name 08/25/2016 1 [facility] Mulugeta Moore [id number] Mulugeta Moore Notes Date Note Type Note Provider Name and Address Organization Details Recorded Time 04/29/2016 text/html Mulugeta Moore is a 65 year old man with complaints of pain in his right lower extremity. The pain starts in the lateral aspect of his right hip and radiates into his right leg. 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 Rodolfo Bermudez MD [address] , [address], [place], [address], [facility] 06/02/2016 08:49:46 07/01/2016 text/html He is here for a follow up after a MRI Lumbar spine which shows Diffusely mottled bony signal intensity, possibly representing osteoporosis.New right pleural effusion, of uncertain size. Bilateral foraminal stenosis, worse on the left, at L5-S1. Left foraminal stenosis at L4-L5. He continues to have pain in his right lower extremity and occasionally has pain in left lower extremity.He has no history of bladder or bowel incontinence. Rodolfo Bermudez MD [address] [facility] , [address], [place], [address], [facility] 07/02/2016 11:40:15 07/13/2016 text/html He is here for a trial of lumbar epidural steroid injection under fluoroscopic guidance Rodolfo Bermudez MD [address] [facility] , [address], [place], [address], [facility] 07/15/2016 10:36:23 08/12/2016 text/html He is here for a follow up after a trial of lumbar epidural steroid injection under fluoroscopic guidance. he states he continues to have right sided low back pain which radiates into right hip. He has no history of numbness or weakness in his lower extremities. He has no history of bladder or bowel incontinence. Rodolfo Bermudez MD [address] [facility] , [address], [place], [address], [facility] 08/13/2016 11:56:26 08/25/2016 text/html He is here for a trial of right facet joint injection under fluoroscopic guidance. Rodolfo Bermudez MD [address] [facility] , [address], [place], [address], [facility] 08/30/2016 09:56:44
--- OUTSIDE RECORDS SUMMARY | 2025-07-10 12:51 | XMS_ITS | Encounter Summary ---
Author Organization [employer] Address [address] [facility] 7t [place] [address] Care Team Providers Care Botanical Technical Officer Name Role Phone Farida Tam MD Primary Care Provider [phone] Carolina Eugene MD Primary Care Provider [phone] Reason for Visit * Reason Comments Med Refill Encounter Details Date Type Department Care Team ([facility] st Contact Info) Description 07/11/2024 Refill [facility] PEDS [address] [place], [place] [phone] Farida Tam MD [address] [place], [place] [phone] Back pain, unspecified back location, unspecified back [...] Description 08/28/2025 9:30 AM EST Clinical Support [facility] PEDS [address] [place] [address] Lilibeth Augustin, RN [address] [place] [address] documented as of this encounter Visit Diagnoses Diagnosis Back pain, unspecified back location, unspecified back pain laterality, unspecified chronicity documented in this encounter Additional Health Concerns Assessment Noted Time PHQ-9 Depression Total Score: 4 03/29/20 23 11:07 AM EDT documented as of this encounter Care Teams Botanical Technical Officer Relationship Specialty Start Date End Date Farida Tam MD [address] [place] [address] PCP - General Family Medicine 09/02/15 05/20/25 Carolina Eugene MD [address] [place] [address] PCP - General Family Medicine 05/21/25 documented as of this encounter
--- OUTSIDE RECORDS SUMMARY | 2025-07-10 12:51 | XMS_ITS | Encounter Summary ---
Author Organization [employer] Address [address] [facility] [address]t [place] [address] Care Team Providers Care Metal Sprayer Name Role Phone Farida Tam MD Primary Care Provider [phone] Carolina Eugene MD Primary Care Provider [phone] Reason for Visit * Reason Onset Date Comments Med Refill 05/20/2023 Encounter Details Date Type Department Care Team (Late st Contact Info) Description 05/20/2023 Telephone [facility] MEDICINE [address] [place] [address] Farida Tam MD [address] [place], [place] [phone] Med Refill Social History Tobacco Use Types [...] Description 08/28/2025 9:30 AM EST Clinical Support [facility] [address] [place] [address] Lilibeth Augustin, NATHALIE [address] [place] [address] documented as of this encounter Visit Diagnoses Not on filedocumented in this encounter Additional Health Concerns Assessment Noted Time PHQ-9 Depression Total Score: 4 03/29/20 23 11:07 AM EDT documented as of this encounter Care Teams Metal Sprayer Relationship Specialty Start Date End Date Farida Tam MD [address] [place] [address] PCP - General Family Medicine 09/02/15 05/20/25 Carolina Eugene MD [address] [place] [address] PCP - General Family Medicine 05/21/25 documented as of this encounter
--- OUTSIDE RECORDS SUMMARY | 2025-07-10 12:51 | XMS_ITS | Encounter Summary ---
Author Organization [employer] Address [address] [facility] 7t [place] [address] Care Team Providers Care Quenching Machine Operator Name Role Phone Farida Tam MD Primary Care Provider [phone] Carolina Eugene MD Primary Care Provider [phone] Reason for Visit * Reason Comments Med Refill Encounter Details Date Type Department Care Team (Late st Contact Info) Description 05/23/2023 Refill [facility] MEDICINE [address] [place] [address] Clint Guan MD [address] [place] [address] Back pain, unspecified back location, unspecified back [...] Description 08/28/2025 9:30 AM EST Clinical Support [facility] MED & PEDS [address] [place] [address] Lilibeth Augustin RN [address] [place] [address] documented as of this encounter Visit Diagnoses Diagnosis Back pain, unspecified back location, unspecified back pain laterality, unspecified chronicity documented in this encounter Additional Health Concerns Assessment Noted Time PHQ-9 Depression Total Score: 4 03/29/20 23 11:07 AM EDT documented as of this encounter Care Teams Quenching Machine Operator Relationship Specialty Start Date End Date Farida Tam MD [address] [place] [address] PCP - General Family Medicine 09/02/15 05/20/25 Carolina Eugene MD [address] [place] [address] PCP - General Family Medicine 05/21/25 documented as of this encounter
--- OUTSIDE RECORDS SUMMARY | 2025-07-10 12:51 | XMS_ITS | Clinical Summary ---
Author Organization [facility] Address [address] [facility] [address] [place] [id number] Phone Care Team Providers Care Typewriter Aligner Name Role Phone Yuki Bergman Unavailable [phone] Farida Tam MD Primary Care Provider [phone] Allergies Active Allergy Reactions Criticality Noted Date [...] other cancers kidney and lung. RECOMMENDATIONS: Dr. Flacon has ordered 3-month follow-up PET CT scan [...] allowing to participate in this patient's care Immunizations Immunization Administration Dates Next Due Pneumococcal [...] 08/27/2024 3:46 PM EST Plan of Treatment Upcoming Encounters Date Type Department Care Team (Late st Contact Info) Description 08/07/2025 10:20 AM EST Office Visit [facility] at [address] [address] Yuki Bergman, ARGENIS [address] [place] [address] [email or web address] Health Maintenance Due Date Last Done Comments [...] VACCINE (#1) 2025 COVID-19 VACCINE (1 - 2024-2 6 season) 2025 POTASSIUM LEVEL 04/05/2025 04/05/2024 RSV [...] Date/Time Associated Diagnosis Comments COMPREHENSIVE METABOLIC PANEL (CMP) Routine 04/05/2024 9:59 AM EDT Vocal cord cancer from Last 3 Months or Most Recently Relevant to Health Maintenance Results * (ABNORMAL) Comprehensive metabolic panel (04/05/2024 9:59 AM EDT) SODIUM 139 133 - 146 mmol/L [facility] POTASSIUM 5.1 3.3 - 5.1 mmol/L [facility] CHLORIDE 102 96 - 108 mmol/L [facility] CO2 29 21 - 35 mmol/L [facility] BUN 30(H) 6 - 19 mg/dL [facility] CREATININE 1.90(H) 0.5 - 1.5 mg/dL [facility] GLUCOSE 69(L) 70 - 99 mg/dL [facility] ALBUMIN 4.1 3.9 - 4.8 g/dL [facility] TOTAL PROTEIN 7.3 6.5 - 8.0 g/dL [facility] CALCIUM 9.7 8.4 - 10.3 mg/dL [facility] ALKALINE PHOSPHATASE 80 39 - 117 U/L [facility] TOTAL BILIRUBIN 0.4 0.0 - 1.2 mg/dL [facility] AST 17 0 - 37 U/L [facility] ALT 12 0 - 40 U/L [facility] GLOBULIN 3.2 1 - 4.8 g/dL [facility] EGFR 37(L) >59 mL/min/1.7 3m2 [facility] Comment:Estimated glomerular filtration rate calculated using the CKD-EPI refit equation. ANION GAP 13 10 - 20 mmol/L [facility] Blood 04/05/2024 9:59 AM EDT 04/05/2024 10:01 AM EDT Nica Vernon MD, MPH LAB BLOOD BKR ORDERABLES Final Result [facility] [address] [place] [address] from Last 3 Months or Most Recently Relevant to Health Maintenance Insurance [facility] AARP MEDICARE REPLACEMENT MEDICARE REPLACEMENT MEDICARE REPLACEMENT MEDICARE REPLACEMENT MEDICARE REPLACEMENT MEDICARE REPLACEMENT Advance Directives For more information, please contact: [phone] (9AM - 5PM [facility], Tuesday-Tuesday) Documents on File Type Date Recorded Patient Chuck Boner Expl anation Healthcare Proxy 02/28/2024 healthcare proxy 02/28/2024 Healthcare Agents on File Name Relationship [facility] Chahal Daughter .Primary Health Care Agent (Proxy form on file) Care Teams Typewriter Aligner Relationship Specialty Start Date End Date Farida Tam MD [address] [place] [id number] PCP - General Family Medicine 02/23/24 Yuki Bergman MBBS [email or web address] Medical Oncology 02/22/24 Additional Source Comments The information contained in this document represents components of the legal health record. It is not the complete legal health record.[facility]
--- OUTSIDE RECORDS SUMMARY | 2025-07-10 12:51 | XMS_ITS | Encounter Summary ---
Author Organization [employer] Address [address] [facility] [address] [place] [address] Care Team Providers Care Machine Sander Name Role Phone Farida aTm MD Primary Care Provider [phone] Carolina Eugene MD Primary Care Provider [phone] Reason for Visit * Reason Onset Date Comments Medication Question 08/28/2024 Encounter Details Date Type Department Care Team ([facility] st Contact Info) Description 08/28/2024 Telephone [facility] [address] [place] [address] Farida Tam MD [address] [place] [address] Medication Question Social History Tobacco Use Types [...] * Telephone Encounter - Saurabh Garcia - 08/28/2024 3:29 PM EST TC from pt requesting a call back regarding med oxyCODONE (Roxicodone) 5 MG immediate release tablet. Pt spouse states would like to Discuss what is going on and why pt did not receive medication. Contact Spouse at [phone] documented in this encounter Plan of Treatment Upcoming Encounters Date Type Department Care Team (Late st Contact Info) Description 08/28/2025 9:30 AM EST Clinical Support [facility] [address] [place] [address] Lilibeth Augustin, NATHALIE [address] [place] [address] documented as of this encounter Visit Diagnoses Not on filedocumented in this encounter Additional Health Concerns Assessment Noted Time PHQ-9 Depression Total Score: 4 03/29/20 23 11:07 AM EDT documented as of this encounter Care Teams Machine Sander Relationship Specialty Start Date End Date Farida Tam MD [address] [place] [id number] PCP - General Family Medicine 09/02/15 05/20/25 Carolina Eugene MD [address] [place] [id number] PCP - General Family Medicine 05/21/25 documented as of this encounter
[2025-07-10 15:55] LABS: Anion Gap 11 (12-20); Blood Urea Nitrogen 30 mg/dL (9-16); Calcium 8.7 mg/dL (8.4-10.2); Carbon Dioxide 30 mmol/L (22-29); Chloride 105 mmol/L (96-108); Estimated Glomerular Filt Rate 30; Potassium 4.7 mmol/L (3.3-5.1); Sodium 141 mmol/L (135-145)
== END 2025-07-10 10:24 | disposition home or self-care (01) ==
LOC: HO.CHCLDS 10:23
PROVIDERS: PCP Internal Medicine Nephrology; Visit Provider Internal Medicine Nephrology
DX: I12.9 Hypertensive chronic kidney disease with stage 1 through stage 4 chronic kidney disease, or unspecified chronic kidney disease (principal); N18.32 Chronic kidney disease, stage 3b
CPT/HCPCS: 36415; 80048